=== PATIENT | female | born 1965 | race Caucasian/White ===

== ENCOUNTER 2023-11-02 19:33 | Inpatient (IN) ==
--- NOTE | 2023-11-02 20:16 | Emergency Department Note ---
Impression & Plan Narcotic overdose, Hypertension, Bradycardia, Frequent PVCs, Suicidal ideation ED Provider Note NAME: LIZZETH LOPEZ AGE: 58 SEX: F : 1965 ARRIVES VIA: Ambulance INFORMANT: [Patient] ED PROVIDER(S): [Harshad Garcia MD] CHIEF COMPLAINT: Overdose, suicidal ideation HISTORY OF PRESENT ILLNESS: The patient is a 58-year-old female with a history of depression. She has felt depressed now since her passed. She has never tried to harm herself before but she has contemplated suicide. The patient states that yesterday at 4 AM, over 24 hours ago, she took 4 vials of methadone. The dose is reached via is 146 mg. She took all of them at once. No other pills taken. She states that despite the large dose of methadone, she had no bad effects. She was not groggy or nauseated. The patient went to [facility] to check herself in for help and they referred her to the ER for workup. The patient admits that she has been nauseated for a couple of days and did not take her regular medications. Her blood pressure is high, she takes 3 different medications for blood pressure. She also did not take her Keppra for seizure prophylaxis. The patient currently has no pain, her nausea seems relatively controlled at this time. There is no shortness of breath. She is voluntary. PMHx/PSHx/Social Hx: See Below PHYSICAL EXAM: GENERAL: Patient is in no acute distress. HEENT: No acute trauma, normocephalic atraumatic, mucous membranes moist, no nasal congestion. NECK: No stridor, no adenopathy, no meningismus, trachea is midline. LUNGS: Clear to auscultation bilaterally, no wheeze, no rhonchi, breath sounds equal. HEART: Without murmurs gallops or rubs, regular rate and rhythm. ABDOMEN: Soft, nontender, no peritonitis. EXTREMITIES: No cyanosis, full range of motion of all the joints without pain or difficulty. NEUROLOGIC: Oriented x 3, no acute motor or sensory deficits, no focal weakness. SKIN: No jaundice, no diaphoresis. Buttock: The patient does have a large sacral ulcer which does not appear acutely infected. Psychiatric: Cooperative, flattened affect, admits to suicidal ideation and the overdose yesterday. DIFFERENTIAL DIAGNOSIS: Overdose, suicidality, medication noncompliance, electrolyte imbalance, dysrhythmia, among others. EMERGENCY DEPARTMENT PROCEDURES: MEDICAL DECISION MAKING: There is no leukocytosis or concerning anemia. Platelet count somewhat low at 114. No renal failure. There were some subtle liver enzyme elevations although, the bilirubin was normal. Patient appeared to be in a euthyroid state. Urinalysis did not show infection. Urine tox showed methadone. Aspirin, Tylenol and alcohol levels were undetectable. COVID test returned negative. ECG showed a sinus rhythm with frequent PVCs. On exam, the patient was not in distress, she was resting comfortably. She was hypertensive. The patient was aggressively managed given the circumstances and given her vital signs. I did speak with the poison center, there is no need for emergent intervention as the overdose was more than 24 hours ago. The patient did receive IV saline, 500 cc. She was given IV Zofran, IV Keppra. The Keppra was given since she had missed her Keppra dosing over the last few days. She was ordered for 10 mg oral Norvasc as well as 40 mg of oral lisinopril. She normally takes Norvasc and lisinopril for blood pressure but had missed these meds the last few days. The patient has had some bradycardia on the cardiac cath technician, she has had frequent PVCs. Despite the monitor findings, she has been interactive, awake, she has had no complaints of chest pain or dyspnea. Given the hypertension, the dysrhythmia, the overdose, her seizure history and medication noncompliance, I do think a hospital stay would be warranted. She needs medical clearance and blood pressure control. She can be seen by psychiatry in consult. I spoke with the patient and case management, I spoke with psychiatry watch caser. The on-call hospitalist was consulted. Of note, the sacral ulcer is chronic, she states that she has had this for years. Prior/Outside records/notes reviewed: Today's notes from the [facility] describing her presentation and the referral to the ED. ECG per my interpretation: Indication was overdose. The ECG shows a sinus rhythm with some sinus arrhythmia and PVCs. There is an incomplete right bundle branch block. The rate is 70. There is no acute ST elevation. The QTc is 419. Continuous Cardiac Monitoring per my interpretation: An order was placed for continuous cardiac monitoring. The monitor shows a rate of 68 with sinus rhythm with PVCs. Imaging/x-ray results per my interpretation: Chronic Medical/Social conditions affecting care: Depression and history of narcotic abuse. Care/Management discussed with: The poison center via phone, psychiatry case management. The on-call hospitalist. Level of care consideration(s): After review of the information above and other included data: --I believe the patient requires escalation of care to admission Critical Care Note: I have personally spent 45 minutes of critical care time in the direct management of this patient. This includes bedside care, interpretation of diagnostic studies, and testing, discussion with consultants, patient, and family members, and other required patient management activities. This 45 minutes is in excess of all separately billable procedures. DISPOSITION: Admission Past Med/Surg History Problem List (Updated 11/02/23 @ 23:18 by Harshad Garcia MD) Suicidal ideation (Acute) Frequent PVCs (Acute) Bradycardia (Acute) Hypertension (Acute) Narcotic overdose (Acute) Medical History Hypertension Depression Social History Smoking Status: Current every day smoker Preferred Language: Bhutanese Feels Safe at Home: Yes Allergies Allergies Allergy/AdvReac Type Severity Reaction Status Date / Time No Known Allergies Allergy Verified 11/02/23 21:35 Home Meds Home Medications Medication Instructions Recorded Confirmed amlodipine 10 mg tablet 10 mg PO DAILY 11/02/23 11/02/23 atenolol 50 mg tablet 50 mg PO DAILY 11/02/23 11/02/23 gabapentin 600 mg tablet 600 mg PO TID 11/02/23 11/02/23 lamotrigine 100 mg tablet 100 mg PO HS 11/02/23 11/02/23 lamotrigine 25 mg tablet 75 mg PO QAM 11/02/23 11/02/23 levetiracetam 500 mg tablet 500 mg PO BID 11/02/23 11/02/23 lisinopril 40 mg tablet 40 mg PO DAILY 11/02/23 11/02/23 methadone 147 mg PO DIRECTED 11/02/23 11/02/23 Results & Data (ED) Vital Signs Vital Signs - 24 hr 11/02/23 19:41 11/02/23 19:52 11/02/23 19:55 Temperature 36.7 C Temperature Source Oral Pulse Rate 69 68 Pulse Rate [Left Apical] Respiratory Rate 20 Respiratory Effort / Characteristics Spontaneous Short of Breath Respiratory Depth Normal Respiratory Pattern Regular Blood Pressure 204/121 H 204/119 H Blood Pressure [Right Arm] Blood Pressure Mean 148 160 Blood Pressure Mean [Right Arm] Pulse Oximetry 91 Oxygen Delivery Method Room Air Oxygen Flow Rate Sepsis Recent Fever Within 48 Hours No Sepsis New/Unexplained Change in Mental Status N/A Sepsis Action Taken by Nursing No Action Required Oxygen Flow Rate - Titration Pulse Oximetry Post Tiitration 11/02/23 20:25 11/02/23 20:30 11/02/23 20:30 Temperature Temperature Source Pulse Rate 59 L Pulse Rate [Left Apical] Respiratory Rate 21 Respiratory Effort / Characteristics Respiratory Depth Respiratory Pattern Blood Pressure 178/115 H Blood Pressure [Right Arm] Blood Pressure Mean 158 Blood Pressure Mean [Right Arm] Pulse Oximetry 88 L 95 Oxygen Delivery Method Nasal Cannula Nasal Cannula Oxygen Flow Rate 0 2 Sepsis Recent Fever Within 48 Hours Sepsis New/Unexplained Change in Mental Status Sepsis Action Taken by Nursing Oxygen Flow Rate - Titration 2 Pulse Oximetry Post Tiitration 95 11/02/23 21:00 11/02/23 21:12 11/02/23 21:13 Temperature Temperature Source Pulse Rate Pulse Rate [Left Apical] 35 L 48 L Respiratory Rate Respiratory Effort / Characteristics Respiratory Depth Respiratory Pattern Blood Pressure 155/115 H Blood Pressure [Right Arm] Blood Pressure Mean 129 Blood Pressure Mean [Right Arm] Pulse Oximetry 95 Oxygen Delivery Method Nasal Cannula Oxygen Flow Rate 2 Sepsis Recent Fever Within 48 Hours Sepsis New/Unexplained Change in Mental Status Sepsis Action Taken by Nursing Oxygen Flow Rate - Titration Pulse Oximetry Post Tiitration 11/02/23 21:15 11/02/23 21:24 11/02/23 21:28 Temperature Temperature Source Pulse Rate 72 62 36 L Pulse Rate [Left Apical] Respiratory Rate 14 16 Respiratory Effort / Characteristics Respiratory Depth Respiratory Pattern Blood Pressure Blood Pressure [Right Arm] Blood Pressure Mean Blood Pressure Mean [Right Arm] Pulse Oximetry 95 96 Oxygen Delivery Method Nasal Cannula Nasal Cannula Oxygen Flow Rate 2 2 Sepsis Recent Fever Within 48 Hours Sepsis New/Unexplained Change in Mental Status Sepsis Action Taken by Nursing Oxygen Flow Rate - Titration Pulse Oximetry Post Tiitration 11/02/23 21:31 11/02/23 21:33 11/02/23 21:36 Temperature Temperature Source Pulse Rate 50 L Pulse Rate [Left Apical] 38 L Respiratory Rate 17 Respiratory Effort / Characteristics Respiratory Depth Respiratory Pattern Blood Pressure 160/89 H Blood Pressure [Right Arm] Blood Pressure Mean 95 Blood Pressure Mean [Right Arm] Pulse Oximetry 96 Oxygen Delivery Method Nasal Cannula Oxygen Flow Rate 2 Sepsis Recent Fever Within 48 Hours Sepsis New/Unexplained Change in Mental Status Sepsis Action Taken by Nursing Oxygen Flow Rate - Titration Pulse Oximetry Post Tiitration 11/02/23 21:42 11/02/23 21:54 11/02/23 21:57 Temperature Temperature Source Pulse Rate 38 L 64 50 L Pulse Rate [Left Apical] Respiratory Rate 18 22 21 Respiratory Effort / Characteristics Respiratory Depth Respiratory Pattern Blood Pressure Blood Pressure [Right Arm] Blood Pressure Mean Blood Pressure Mean [Right Arm] Pulse Oximetry 96 95 94 Oxygen Delivery Method Nasal Cannula Nasal Cannula Nasal Cannula Oxygen Flow Rate 2 2 2 Sepsis Recent Fever Within 48 Hours Sepsis New/Unexplained Change in Mental Status Sepsis Action Taken by Nursing Oxygen Flow Rate - Titration Pulse Oximetry Post Tiitration 11/02/23 22:01 11/02/23 22:30 11/02/23 22:39 Temperature Temperature Source Pulse Rate 62 Pulse Rate [Left Apical] Respiratory Rate 17 Respiratory Effort / Characteristics Respiratory Depth Respiratory Pattern Blood Pressure 191/110 H Blood Pressure [Right Arm] 145/90 H Blood Pressure Mean 113 Blood Pressure Mean [Right Arm] 108 Pulse Oximetry Oxygen Delivery Method Oxygen Flow Rate Sepsis Recent Fever Within 48 Hours Sepsis New/Unexplained Change in Mental Status Sepsis Action Taken by Nursing Oxygen Flow Rate - Titration Pulse Oximetry Post Tiitration Home Medications Current Medication List: was personally reviewed by me Laboratory Data Attestation: I reviewed the patient's lab results. 11/02/23 20:13 11/02/23 20:13 Lab Results 11/02/23 11/02/23 11/02/23 Range/Units 20:11 20:13 20:44 WBC 5.46 (4.8-10.8) K/ul RBC 5.21 (4.20-5.40) M/uL Hgb 16.4 H (12.0-16.0) g/dl Hct 49.4 H (37.0-47.0) % MCV 94.8 (80.0-100.0) fL MCH 31.5 (25.0-34.0) pg MCHC 33.2 (32.0-36.0) g/dL RDW Std Deviation 46.5 H (36.4-46.3) fL RDW Coeff of Sol 13.4 (11.5-14.5) % Plt Count 114 L (130-400) K/uL MPV 11.2 (9.4-12.4) fL Immature Gran % (Auto) 0.2 % Neut % (Auto) 49.3 % Lymph % (Auto) 40.8 % [place] % (Auto) 8.8 % Eos % (Auto) 0.5 % Baso % (Auto) 0.4 % Neut # (Auto) 2.69 (1.40-6.50) K/uL Lymph # (Auto) 2.23 (1.20-3.40) K/uL [place] # (Auto) 0.48 (0.11-0.59) K/uL Eos # (Auto) 0.03 (0.00-0.50) K/uL Baso # (Auto) 0.02 (0.00-0.20) K/uL Immature Gran # (Auto) 0.01 (0.01-0.20) K/uL Sodium 137 (136-145) mmol/L Potassium 3.8 (3.5-5.1) mmol/L Chloride 105 (98-107) mmol/L Carbon Dioxide 27 (21-32) mmol/L Anion Gap 5 (3-11) BUN 26 H (6-23) mg/dl Creatinine 1.08 (0.6-1.2) mg/dl Est Cr Clr Drug Dosing Not Reportable Est GFR ( Amer) 65.5 ml/min Est GFR (Non-Af Amer) 56.5 ml/min BUN/Creatinine Ratio 24.1 H (10-20) Glucose 94 (70-99(Fasting)) mg/dl Calcium 11.8 H (8.6-10.3) mg/dl Phosphorus 3.0 (2.5-4.9) mg/dl Total Bilirubin 0.9 (0.2-1.0) mg/dl AST 87 H (13-39) U/L ALT 82 H (7-52) U/L Alkaline Phosphatase 181 H (34-104) U/L Troponin I High Sens 6.3 (0-14) pg/ml Total Protein 8.7 H (6.0-8.3) gm/dl Albumin 4.7 (3.4-5.0) gm/dl Globulin 4.0 (2.5-4.0) gm/dl Albumin/Globulin Ratio 1.2 (0.9-2) TSH 1.961 (0.300-4.500) uIu/ml Urine Color Yellow Urine Appearance Clear (Clear) Urine pH 6.0 (4.5-7.5) Ur Specific [place] 1.018 (1.000-1.030) Urine Protein 1+ H (Negative) Urine Glucose (UA) Negative (Negative) Urine Ketones Negative (Negative) Urine Blood Negative (Negative) Urine Nitrite Negative (Negative) Urine Bilirubin Negative (Negative) Urine Urobilinogen Negative (Negative) Ur Leukocyte Esterase Negative (Negative) Urine WBC (Auto) 0-5 (0-5) /hpf Urine RBC (Auto) 0-2 (0-2) /hpf U Hyaline Cast (Auto) 0-2 (0-2) /lpf U Epithel Cells (Auto) 0-2 (0-2) /hpf Urine Bacteria (Auto) None Seen (None Seen) Salicylates < 3.0 L (3.0-30) mg/dl Urine Opiates Screen Neg (Neg) Ur Methadone, Qual Pos H (Neg) Urine Fentanyl Screen Neg (Neg) Acetaminophen < 3 L (10-30) ug/ml Urine Barbiturates Neg (Neg) Ur Phencyclidine (PCP) Neg (Neg) U Amphetamin/Meth Scrn Neg (Neg) MDMA (Ecstasy) Screen Neg (Neg) U Benzodiazepines Scrn Neg (Neg) Ur Cocaine Metabolite Neg (Neg) U Marijuana (THC) Screen Neg (Neg) Ethyl Alcohol mg/dL < 10.0 (<10.0) mg/dl SARS-CoV-2, RNA, NAAT NEGATIVE (NEGATIVE) Administered Medications Discontinued Medications Amlodipine Besylate (Amlodipine Besylate 5 Mg Tab) 10 mg PO NOW ONE Stop: 11/02/23 20:07 Last Admin: 11/02/23 20:26 Dose: 10 mg Documented By: [facility] Atenolol (Atenolol 50 Mg Tablet) 50 mg PO NOW ONE Stop: 11/02/23 20:07 Last Admin: 11/02/23 20:30 Dose: Not Given Documented By: SUMEET Sodium Chloride (Nss) 500 mls @ 999 mls/hr IV .Q31M ONE Stop: 11/02/23 20:36 Last Infusion: 11/02/23 22:04 Dose: Infused Documented By: Admin: 11/02/23 20:27 Dose: 999 mls/hr Documented By: SUMEET Levetiracetam (Levetiracetam 500 Mg/5 Ml Vial) 1,000 mg IV NOW STA Stop: 11/02/23 20:07 Last Admin: 11/02/23 20:27 Dose: 1,000 mg Documented By: SUMEET Lisinopril (Lisinopril 40 Mg Tab) 40 mg PO NOW STA Stop: 11/02/23 20:07 Last Admin: 11/02/23 21:11 Dose: 40 mg Documented By: SUMEET Ondansetron HCl (Ondansetron Inj 2 Mg/Ml 2 Ml Vial) 4 mg IV NOW STA Stop: 11/02/23 20:07 Last Admin: 11/02/23 20:27 Dose: 4 mg Documented By: [place] Discharge Plan Visit Data Chief Complaint: Mental Health Evaluation Stated Complaint: WANTS HELP WITH METHADONE ADDICTION ED Provider: Harshad Garcia Discharge Problem: Narcotic overdose, Hypertension, Bradycardia, Frequent PVCs, Suicidal ideation Patient Disposition: Admitted As Inpatient Condition: Fair Forms Stand Alone Forms: [facility], Suicide Prevention Resources Prescriptions Prescriptions: No Action gabapentin 600 mg tablet 600 mg PO TID levetiracetam 500 mg tablet 500 mg PO BID lamotrigine 25 mg tablet 75 mg PO QAM amlodipine 10 mg Tablet 10 mg PO DAILY lisinopril 40 mg tablet 40 mg PO DAILY atenolol 50 mg Tablet 50 mg PO DAILY lamotrigine 100 mg tablet 100 mg PO HS methadone 147 mg PO DIRECTED Rx Instructions: Pt takes 147 mg methadone concentrate PO as directed Referrals Referrals: PCP,NO [Physician] - Discharge Problem: Narcotic overdose Qualifiers: Encounter type: initial encounter Injury intent: intentional self-harm Q ualified Code(s): T40.602A - Poisoning by unspecified narcotics, intentional self-harm, initial encounter Hypertension Qualifiers: Hypertension type: unspecified Qualified Code(s): I10 - Essential (primary) hypertension
[2023-11-02] MEDS: amLODIPine BESYLATE 5 MG TAB PO ONE (20:26)
[2023-11-02] MEDS: ONDANSETRON INJ 2 MG/ML 2 ML VIAL IV STA (20:27)
[2023-11-02] MEDS: levETIRAcetam 500 MG/5 ML VIAL IV STA (20:27)
[2023-11-02] MEDS: ATENOLOL 50 MG TABLET PO ONE (20:27)
[2023-11-02] MEDS: SODIUM CHLORIDE 0.9% 500 ML IV ONE (20:27)
[2023-11-02 20:50] LABS: Basophils # (auto) 0.02 K/uL (0.00-0.20); Basophils % (auto) 0.4 %; Eosinophils # (auto) 0.03 K/uL (0.00-0.50); Eosinophils % (auto) 0.5 %; Hematocrit (blood only) 49.4 % (37.0-47.0); Hemoglobin 16.4 g/dl (12.0-16.0); Immature Granulocytes # (auto) 0.01 K/uL (0.01-0.20); Immature Granulocytes % (auto) 0.2 %; Lymphocytes # (auto) 2.23 K/uL (1.20-3.40); Lymphocytes % (auto) 40.8 %; Mean Corpuscular Hemoglobin 31.5 pg (25.0-34.0); Mean Corpuscular Hgb Conc 33.2 g/dL (32.0-36.0); Mean Corpuscular Volume 94.8 fL (80.0-100.0); Mean Platelet Volume 11.2 fL (9.4-12.4); Monocytes # (auto) 0.48 K/uL (0.11-0.59); Monocytes % (auto) 8.8 %; Neutrophils # (auto) 2.69 K/uL (1.40-6.50); Neutrophils % (auto) 49.3 %; Platelet Count 114 K/uL (130-400); RDW Coefficient of Variation 13.4 % (11.5-14.5); RDW Standard Deviation 46.5 fL (36.4-46.3); Red Blood Count 5.21 M/uL (4.20-5.40); White Blood Count 5.46 K/ul (4.8-10.8)
[2023-11-02 21:00] LABS: Appearance Urine Clear (Clear); Bacteria Urine Automated None Seen (None Seen); Bilirubin Urine Negative (Negative); Blood Urine Negative (Negative); Cast Urine Automated 0-2 /lpf (0-2); Color Urine Yellow; Epithelial Cell Urine Auto 0-2 /hpf (0-2); Glucose Urine UA Negative (Negative); Ketones Urine Negative (Negative); Leukocyte Esterase Urine Negative (Negative); Nitrite Urine Negative (Negative); Protein Urine 1+ (Negative); RBC Urine Automated 0-2 /hpf (0-2); Specific Gravity Urine 1.018 (1.000-1.030); Urobilinogen Urine Negative (Negative); WBC Urine Automated 0-5 /hpf (0-5)
[2023-11-02 21:07] LABS: Acetaminophen < 3 ug/ml (10-30); Alanine Aminotransferase 82 U/L (7-52); Albumin Globulin Ratio 1.2 (0.9-2); Albumin Level 4.7 gm/dl (3.4-5.0); Alkaline Phosphatase 181 U/L (34-104); Anion Gap 5 (3-11); Aspartate Aminotransferase 87 U/L (13-39); BUN Creatinine Ratio 24.1 (10-20); Bilirubin,Total 0.9 mg/dl (0.2-1.0); Blood Urea Nitrogen 26 mg/dl (6-23); Calcium 11.8 mg/dl (8.6-10.3); Carbon Dioxide 27 mmol/L (21-32); Chloride 105 mmol/L (98-107); Est GFR (African American) 65.5 ml/min; Est GFR (Non-African American) 56.5 ml/min; Glucose 94 mg/dl (70-99(Fasting)); Potassium 3.8 mmol/L (3.5-5.1); Salicylate < 3.0 mg/dl (3.0-30); Sodium 137 mmol/L (136-145); Total Protein 8.7 gm/dl (6.0-8.3)
[2023-11-02] MEDS: lisinopril 40 MG TAB PO STA (21:11)
[2023-11-02 21:22] LABS: Thyroid Stimulating Hormone 1.961 uIu/ml (0.300-4.500)
[2023-11-02 21:24] LABS: Amphetamines+Metham, Urine Neg (Neg); Barbiturates, Urine Neg (Neg); Benzodiazepine, Urine Neg (Neg); Cocaine, Urine Neg (Neg); Fentanyl, Urine Neg (Neg); MDMA (Ecstacy), Urine Neg (Neg); Marijuana, Urine Neg (Neg); Methadone, Urine Pos (Neg); Opiate, Urine Neg (Neg); Phencyclidine, Urine Neg (Neg)
--- NOTE | 2023-11-02 22:15 | History & Physical Report ---
Date of Service November 02, 2023 History of Present Illness Primary Care Provider: Marcelina Bird Allergies Allergy/AdvReac Type Severity Reaction Status Date / Time No Known Allergies Allergy Verified 11/02/23 21:35 Home Medications Medication Instructions Recorded Confirmed Type amlodipine 10 mg tablet 10 mg PO DAILY 11/02/23 11/02/23 History atenolol 50 mg tablet 50 mg PO DAILY 11/02/23 11/02/23 History gabapentin 600 mg tablet 600 mg PO TID 11/02/23 11/02/23 History lamotrigine 100 mg tablet 100 mg PO HS 11/02/23 11/02/23 History lamotrigine 25 mg tablet 75 mg PO QAM 11/02/23 11/02/23 History levetiracetam 500 mg tablet 500 mg PO BID 11/02/23 11/02/23 History lisinopril 40 mg tablet 40 mg PO DAILY 11/02/23 11/02/23 History methadone 147 mg PO DIRECTED 11/02/23 11/02/23 History Past Med/Surg History Problem List Social History Smoking Status: Current every day smoker Preferred Language: [place] Citizen Feels Safe at Home: Yes Results & Data Results & Data Vital Signs (Past 12 Hours) Vital Signs Temp Pulse Pulse Resp BP Pulse Ox O2 Del Method 11/02/23 21:36 38 L 11/02/23 21:33 50 L 17 96 Nasal Cannula 11/02/23 21:31 160/89 H 11/02/23 21:28 36 L 11/02/23 21:24 62 16 96 Nasal Cannula 11/02/23 21:15 72 14 95 Nasal Cannula 11/02/23 21:13 48 L 11/02/23 21:12 35 L 95 Nasal Cannula 11/02/23 21:00 155/115 H 11/02/23 20:30 59 L 21 95 Nasal Cannula 11/02/23 20:30 178/115 H 11/02/23 20:25 88 L Nasal Cannula 11/02/23 19:55 68 11/02/23 19:52 204/119 H 11/02/23 19:41 36.7 C 69 20 204/121 H 91 Room Air O2 Flow Rate 11/02/23 21:36 11/02/23 21:33 2 11/02/23 21:31 11/02/23 21:28 11/02/23 21:24 2 07/02/24 21:15 2 11/02/23 21:13 11/02/23 21:12 2 11/02/23 21:00 11/02/23 20:30 2 11/02/23 20:30 11/02/23 20:25 0 11/02/23 19:55 11/02/23 19:52 11/02/23 19:41 Laboratory Results Laboratory Results WBC 5.46 K/ul (4.8-10.8) 11/02/23 20:13 RBC 5.21 M/uL (4.20-5.40) 11/02/23 20:13 Hgb 16.4 g/dl (12.0-16.0) H 11/02/23 20:13 Hct 49.4 % (37.0-47.0) H 11/02/23 20:13 MCV 94.8 fL (80.0-100.0) 11/02/23 20:13 MCH 31.5 pg (25.0-34.0) 11/02/23 20:13 MCHC 33.2 g/dL (32.0-36.0) 11/02/23 20:13 RDW Std Deviation 46.5 fL (36.4-46.3) H 11/02/23 20:13 RDW Coeff of Sol 13.4 % (11.5-14.5) 11/02/23 20:13 Plt Count 114 K/uL (130-400) L 11/02/23 20:13 MPV 11.2 fL (9.4-12.4) 11/02/23 20:13 Immature Gran % (Auto) 0.2 % 11/02/23 20:13 Neut % (Auto) 49.3 % 11/02/23 20:13 Lymph % (Auto) 40.8 % 11/02/23 20:13 [place] % (Auto) 8.8 % 11/02/23 20:13 Eos % (Auto) 0.5 % 11/02/23 20:13 Baso % (Auto) 0.4 % 11/02/23 20:13 Neut # (Auto) 2.69 K/uL (1.40-6.50) 11/02/23 20:13 Lymph # (Auto) 2.23 K/uL (1.20-3.40) 11/02/23 20:13 [place] # (Auto) 0.48 K/uL (0.11-0.59) 11/02/23 20:13 Eos # (Auto) 0.03 K/uL (0.00-0.50) 11/02/23 20:13 Baso # (Auto) 0.02 K/uL (0.00-0.20) 11/02/23 20:13 Immature Gran # (Auto) 0.01 K/uL (0.01-0.20) 11/02/23 20:13 Sodium 137 mmol/L (136-145) 11/02/23 20:13 Potassium 3.8 mmol/L (3.5-5.1) 11/02/23 20:13 Chloride 105 mmol/L (98-107) 11/02/23 20:13 Carbon Dioxide 27 mmol/L (21-32) 11/02/23 20:13 Anion Gap 5 (3-11) 11/02/23 20:13 BUN 26 mg/dl (6-23) H 11/02/23 20:13 Creatinine 1.08 mg/dl (0.6-1.2) 11/02/23 20:13 Est Cr Clr Drug Dosing Not Reportable 11/02/23 20:13 Est GFR ( Amer) 65.5 ml/min 11/02/23 20:13 Est GFR (Non-Af Amer) 56.5 ml/min 11/02/23 20:13 BUN/Creatinine Ratio 24.1 (10-20) H 11/02/23 20:13 Glucose 94 mg/dl (70-99(Fasting)) 11/02/23 20:13 Calcium 11.8 mg/dl (8.6-10.3) H 11/02/23 20:13 Total Bilirubin 0.9 mg/dl (0.2-1.0) 11/02/23 20:13 AST 87 U/L (13-39) H 11/02/23 20:13 ALT 82 U/L (7-52) H 11/02/23 20:13 Alkaline Phosphatase 181 U/L (34-104) H 11/02/23 20:13 Total Protein 8.7 gm/dl (6.0-8.3) H 11/02/23 20:13 Albumin 4.7 gm/dl (3.4-5.0) 11/02/23 20:13 Globulin 4.0 gm/dl (2.5-4.0) 11/02/23 20:13 Albumin/Globulin Ratio 1.2 (0.9-2) 11/02/23 20:13 TSH 1.961 uIu/ml (0.300-4.500) 11/02/23 20:13 Urine Color Yellow 11/02/23 20:44 Urine Appearance Clear (Clear) 11/02/23 20:44 Urine pH 6.0 (4.5-7.5) 11/02/23 20:44 Ur Specific [place] 1.018 (1.000-1.030) 11/02/23 20:44 Urine Protein 1+ (Negative) H 11/02/23 20:44 Urine Glucose (UA) Negative (Negative) 11/02/23 20:44 Urine Ketones Negative (Negative) 11/02/23 20:44 Urine Blood Negative (Negative) 11/02/23 20:44 Urine Nitrite Negative (Negative) 11/02/23 20:44 Urine Bilirubin Negative (Negative) 11/02/23 20:44 Urine Urobilinogen Negative (Negative) 11/02/23 20:44 Ur Leukocyte Esterase Negative (Negative) 11/02/23 20:44 Urine WBC (Auto) 0-5 /hpf (0-5) 11/02/23 20:44 Urine RBC (Auto) 0-2 /hpf (0-2) 11/02/23 20:44 U Hyaline Cast (Auto) 0-2 /lpf (0-2) 11/02/23 20:44 U Epithel Cells (Auto) 0-2 /hpf (0-2) 11/02/23 20:44 Urine Bacteria (Auto) None Seen (None Seen) 11/02/23 20:44 Salicylates < 3.0 mg/dl (3.0-30) L 11/02/23 20:13 Urine Opiates Screen Neg (Neg) 11/02/23 20:44 Ur Methadone, Qual Pos (Neg) H 11/02/23 20:44 Urine Fentanyl Screen Neg (Neg) 11/02/23 20:44 Acetaminophen < 3 ug/ml (10-30) L 11/02/23 20:13 Urine Barbiturates Neg (Neg) 11/02/23 20:44 Ur Phencyclidine (PCP) Neg (Neg) 11/02/23 20:44 U Amphetamin/Meth Scrn Neg (Neg) 11/02/23 20:44 MDMA (Ecstasy) Screen Neg (Neg) 11/02/23 20:44 U Benzodiazepines Scrn Neg (Neg) 11/02/23 20:44 Ur Cocaine Metabolite Neg (Neg) 11/02/23 20:44 U Marijuana (THC) Screen Neg (Neg) 11/02/23 20:44 Ethyl Alcohol mg/dL < 10.0 mg/dl (<10.0) 11/02/23 20:13 SARS-CoV-2, RNA, NAAT NEGATIVE (NEGATIVE) 11/02/23 20:11
[2023-11-02] MEDS ORDERED: ATROPINE SULFATE 0.1 MG/ML 10ML SYR IV PRN (22:20)
[2023-11-02] MEDS ORDERED: oxyCODONE HCL IR 5 MG TAB (IMMEDIATE RELEASE) PO PRN (22:45)
[2023-11-02 22:58] LABS: Troponin I High Sensitivity 6.3 pg/ml (0-14)
[2023-11-02 23:19] LABS: Appearance Urine Clear (Clear); Bacteria Urine Automated None Seen (None Seen); Bilirubin Urine Negative (Negative); Blood Urine Negative (Negative); Cast Urine Automated 0-2 /lpf (0-2); Color Urine Yellow; Epithelial Cell Urine Auto 0-2 /hpf (0-2); Glucose Urine UA Negative (Negative); Ketones Urine Negative (Negative); Leukocyte Esterase Urine Negative (Negative); Nitrite Urine Negative (Negative); Protein Urine Trace (Negative); RBC Urine Automated 0-2 /hpf (0-2); Specific Gravity Urine 1.015 (1.000-1.030); Urobilinogen Urine Negative (Negative); WBC Urine Automated 0-5 /hpf (0-5)
[2023-11-02] MEDS: hydrALAZINE HCL 20 MG/ML VIAL IV STA (23:22)
[2023-11-02] MEDS: lamoTRIgine 100 MG TAB PO SCH (23:36)
[2023-11-02] MEDS: SODIUM CHLORIDE 0.9% 1,000 ML IV ONE (23:36)
[2023-11-03 00:04] LABS: Lipase 25 U/L (11-82)
--- NOTE | 2023-11-03 00:45 | History & Physical Report ---
Date of Service November 03, 2023 History of Present Illness Primary Care Provider: Marcelina Bird Allergies Allergy/AdvReac Type Severity Reaction Status Date / Time No Known Allergies Allergy Verified 11/02/23 21:35 Home Medications Medication Instructions Recorded Confirmed Type amlodipine 10 mg tablet 10 mg PO DAILY 11/02/23 11/02/23 History atenolol 50 mg tablet 50 mg PO DAILY 11/02/23 11/02/23 History gabapentin 600 mg tablet 600 mg PO TID 11/02/23 11/02/23 History lamotrigine 100 mg tablet 100 mg PO HS 11/02/23 11/02/23 History lamotrigine 25 mg tablet 75 mg PO QAM 11/02/23 11/02/23 History levetiracetam 500 mg tablet 500 mg PO BID 11/02/23 11/02/23 History lisinopril 40 mg tablet 40 mg PO DAILY 11/02/23 11/02/23 History methadone 147 mg PO DIRECTED 11/02/23 11/02/23 History Past Med/Surg History Problem List (Updated 11/02/23 @ 23:18 by Harshad Garcia MD) Suicidal ideation (Acute) Frequent PVCs (Acute) Bradycardia (Acute) Hypertension (Acute) Narcotic overdose (Acute) Medical History Hypertension Depression Social History Smoking Status: Current every day smoker Preferred Language: Salvadorean Feels Safe at Home: Yes Results & Data Results & Data Vital Signs (Past 12 Hours) Vital Signs Temp Pulse Pulse Resp BP BP Pulse Ox 11/02/23 23:06 50 L 15 126/81 92 11/02/23 22:39 145/90 H 11/02/23 22:38 145/90 H 11/02/23 22:30 62 17 11/02/23 22:01 191/110 H 11/02/23 21:57 50 L 21 94 11/02/23 21:54 64 22 95 11/02/23 21:42 38 L 18 96 11/02/23 21:36 38 L 11/02/23 21:33 50 L 17 96 11/02/23 21:31 160/89 H 11/02/23 21:28 36 L 11/02/23 21:24 62 16 96 11/02/23 21:15 72 14 95 11/02/23 21:13 48 L 11/02/23 21:12 35 L 95 11/02/23 21:00 155/115 H 11/02/23 20:30 59 L 21 95 11/02/23 20:30 178/115 H 11/02/23 20:25 88 L 11/02/23 19:55 68 11/02/23 19:52 204/119 H 11/02/23 19:41 36.7 C 69 20 204/121 H 91 O2 Del Method O2 Flow Rate 11/02/23 23:06 Nasal Cannula 2 11/02/23 22:39 11/02/23 22:38 11/02/23 22:30 11/02/23 22:01 11/02/23 21:57 Nasal Cannula 2 11/02/23 21:54 Nasal Cannula 2 11/02/23 21:42 Nasal Cannula 2 11/02/23 21:36 11/02/23 21:33 Nasal Cannula 2 11/02/23 21:31 11/02/23 21:28 11/02/23 21:24 Nasal Cannula 2 11/02/23 21:15 Nasal Cannula 2 11/02/23 21:13 11/02/23 21:12 Nasal Cannula 2 11/02/23 21:00 11/02/23 20:30 Nasal Cannula 2 11/02/23 20:30 11/02/23 20:25 Nasal Cannula 0 11/02/23 19:55 11/02/23 19:52 11/02/23 19:41 Room Air Laboratory Results Laboratory Results WBC 5.46 K/ul (4.8-10.8) 11/02/23 20:13 RBC 5.21 M/uL (4.20-5.40) 11/02/23 20:13 Hgb 16.4 g/dl (12.0-16.0) H 11/02/23 20:13 Hct 49.4 % (37.0-47.0) H 11/02/23 20:13 MCV 94.8 fL (80.0-100.0) 11/02/23 20:13 MCH 31.5 pg (25.0-34.0) 11/02/23 20:13 MCHC 33.2 g/dL (32.0-36.0) 11/02/23 20:13 RDW Std Deviation 46.5 fL (36.4-46.3) H 11/02/23 20:13 RDW Coeff of Sol 13.4 % (11.5-14.5) 11/02/23 20:13 Plt Count 114 K/uL (130-400) L 11/02/23 20:13 MPV 11.2 fL (9.4-12.4) 11/02/23 20:13 Immature Gran % (Auto) 0.2 % 11/02/23 20:13 Neut % (Auto) 49.3 % 11/02/23 20:13 Lymph % (Auto) 40.8 % 11/02/23 20:13 [place] % (Auto) 8.8 % 11/02/23 20:13 Eos % (Auto) 0.5 % 11/02/23 20:13 Baso % (Auto) 0.4 % 11/02/23 20:13 Neut # (Auto) 2.69 K/uL (1.40-6.50) 11/02/23 20:13 Lymph # (Auto) 2.23 K/uL (1.20-3.40) 11/02/23 20:13 [place] # (Auto) 0.48 K/uL (0.11-0.59) 11/02/23 20:13 Eos # (Auto) 0.03 K/uL (0.00-0.50) 11/02/23 20:13 Baso # (Auto) 0.02 K/uL (0.00-0.20) 11/02/23 20:13 Immature Gran # (Auto) 0.01 K/uL (0.01-0.20) 11/02/23 20:13 Sodium 137 mmol/L (136-145) 11/02/23 20:13 Potassium 3.8 mmol/L (3.5-5.1) 11/02/23 20:13 Chloride 105 mmol/L (98-107) 11/02/23 20:13 Carbon Dioxide 27 mmol/L (21-32) 11/02/23 20:13 Anion Gap 5 (3-11) 11/02/23 20:13 BUN 26 mg/dl (6-23) H 11/02/23 20:13 Creatinine 1.08 mg/dl (0.6-1.2) 11/02/23 20:13 Est Cr Clr Drug Dosing Not Reportable 11/02/23 20:13 Est GFR ( Amer) 65.5 ml/min 11/02/23 20:13 Est GFR (Non-Af Amer) 56.5 ml/min 11/02/23 20:13 BUN/Creatinine Ratio 24.1 (10-20) H 11/02/23 20:13 Glucose 94 mg/dl (70-99(Fasting)) 11/02/23 20:13 Calcium 11.8 mg/dl (8.6-10.3) H 11/02/23 20:13 Phosphorus 3.0 mg/dl (2.5-4.9) 11/02/23 20:13 Total Bilirubin 0.9 mg/dl (0.2-1.0) 11/02/23 20:13 AST 87 U/L (13-39) H 11/02/23 20:13 ALT 82 U/L (7-52) H 11/02/23 20:13 Alkaline Phosphatase 181 U/L (34-104) H 11/02/23 20:13 Troponin I High Sens 6.3 pg/ml (0-14) 11/02/23 20:13 Total Protein 8.7 gm/dl (6.0-8.3) H 11/02/23 20:13 Albumin 4.7 gm/dl (3.4-5.0) 11/02/23 20:13 Globulin 4.0 gm/dl (2.5-4.0) 11/02/23 20:13 Albumin/Globulin Ratio 1.2 (0.9-2) 11/02/23 20:13 Lipase 25 U/L (11-82) 11/02/23 20:13 TSH 1.961 uIu/ml (0.300-4.500) 11/02/23 20:13 Urine Color Yellow 11/02/23 22:54 Urine Appearance Clear (Clear) 11/02/23 22:54 Urine pH 6.0 (4.5-7.5) 11/02/23 22:54 Ur Specific [place] 1.015 (1.000-1.030) 11/02/23 22:54 Urine Protein Trace (Negative) H 11/02/23 22:54 Urine Glucose (UA) Negative (Negative) 11/02/23 22:54 Urine Ketones Negative (Negative) 11/02/23 22:54 Urine Blood Negative (Negative) 11/02/23 22:54 Urine Nitrite Negative (Negative) 11/02/23 22:54 Urine Bilirubin Negative (Negative) 11/02/23 22:54 Urine Urobilinogen Negative (Negative) 11/02/23 22:54 Ur Leukocyte Esterase Negative (Negative) 11/02/23 22:54 Urine WBC (Auto) 0-5 /hpf (0-5) 11/02/23 22:54 Urine RBC (Auto) 0-2 /hpf (0-2) 11/02/23 22:54 U Hyaline Cast (Auto) 0-2 /lpf (0-2) 11/02/23 22:54 U Epithel Cells (Auto) 0-2 /hpf (0-2) 11/02/23 22:54 Urine Bacteria (Auto) None Seen (None Seen) 11/02/23 22:54 Salicylates < 3.0 mg/dl (3.0-30) L 11/02/23 20:13 Urine Opiates Screen Neg (Neg) 11/02/23 20:44 Ur Methadone, Qual Pos (Neg) H 11/02/23 20:44 Urine Fentanyl Screen Neg (Neg) 11/02/23 20:44 Acetaminophen < 3 ug/ml (10-30) L 11/02/23 20:13 Urine Barbiturates Neg (Neg) 11/02/23 20:44 Ur Phencyclidine (PCP) Neg (Neg) 11/02/23 20:44 U Amphetamin/Meth Scrn Neg (Neg) 11/02/23 20:44 MDMA (Ecstasy) Screen Neg (Neg) 11/02/23 20:44 U Benzodiazepines Scrn Neg (Neg) 11/02/23 20:44 Ur Cocaine Metabolite Neg (Neg) 11/02/23 20:44 U Marijuana (THC) Screen Neg (Neg) 11/02/23 20:44 Ethyl Alcohol mg/dL < 10.0 mg/dl (<10.0) 11/02/23 20:13 SARS-CoV-2, RNA, NAAT NEGATIVE (NEGATIVE) 11/02/23 20:11 Diagnostic Findings 1. Coarse echogenicity of the liver may relate to fatty infiltration and/or hep atocellular dysfunction. 2. Cholelithiasis. No ultrasound evidence of acute cholecystitis. 3. Dilated common bile duct and pancreatic duct, "double duct sign ". This is concerning for an ampullary lesion. 4. There are however filling defects the common bile duct consistent with choledocholithiasis.
[2023-11-03 01:15] LABS: INR 1.1 (0.9-1.1); Prothrombin Time 11.5 Seconds (9.0-12.0)
[2023-11-03 01:48] LABS: HepB Surface Ag with confirm Negative (Negative)
[2023-11-03 01:54] LABS: HepC Ab Rflx HepCQuant RNA Prelim Positive (Negative)
--- NOTE | 2023-11-03 03:00 | Ultrasound Report ---
Exam(s): US GALLBLADDER EXAM: US Abdomen Limited, Gallbladder CLINICAL HISTORY: Abnormal LFTs. TECHNIQUE: Real-time ultrasound of the right upper quadrant with image documentation. COMPARISON: No relevant prior studies available. FINDINGS: Liver: Coarse echogenicity of the liver may relate to fatty infiltration and/or hepatocellular dysfunction. Gallbladder: Cholelithiasis. No ultrasound evidence of acute cholecystitis. Common bile duct: The common bile duct is dilated measuring 1.4 cm. There are however filling defects the common bile duct consistent with choledocholithiasis. Pancreas: The visualized pancreas is within normal limits. Prominent pancreatic duct measuring 0.3 cm. IMPRESSION: 1. Coarse echogenicity of the liver may relate to fatty infiltration and/or hepatocellular dysfunction. 2. Cholelithiasis. No ultrasound evidence of acute cholecystitis. 3. Dilated common bile duct and pancreatic duct, "double duct sign ". This is concerning for an ampullary lesion. 4. There are however filling defects the common bile duct consistent with choledocholithiasis. Electronically signed by: Dora Barajas MD 11/03/23 02:59 AM
[2023-11-03] MEDS: NSS + 20MEQ KCL 20 MEQ/1,000 ML BAG IV ONE (04:17)
--- NOTE | 2023-11-03 04:22 | Hospitalist Consultation ---
Date of Consultation November 03, 2023 Assessment & Plan (1) Biliary obstruction: Final Assessment and Recommendations as follows : Choledocholithiasis, possible periampullary lesion on gallbladder ultrasound Patient not septic for now Hypercalcemia secondary to primary hyperparathyroidism, new diagnosis Asymptomatic bradycardia possibly from intentional methadone overdose, home beta-rain contributory Transfer to tertiary care center given need for advanced endoscopy services (ERCP) which is currently not available at [facility]. Patient kindly accepted for transfer by Dr. Travis of [facility] hospitalist service. Keep patient n.p.o. in anticipation of procedure Continue IVF for hypercalcemia Endocrinology consultation for primary hyperparathyroidism. Suicide precautions on transfer, Psychiatry consultation for suicidality Hold home beta-rain for now Patient daughter requesting updates from [facility] providers. Ms. Neville Carlagnieszka, contact #[phone]. Thank you very much for this consultation. Text document was generated using [employer] voice recognition software. It may contain grammatical or spelling errors. Kindly contact undersigned for clarification of any documentation item in question. History of Present Illness Reason for Consultation: Uncontrolled hypertension Requesting Physician: Dr. Garcia Attending Physician: Dr. Garcia History of Present Illness PCP : Dr. Machuca History obtained from patient, family, and records. Medical history significant for COPD, hypertension, HBV/HCV status post Rx as per family, mood disorder, seizure disorder, chronic pain on methadone, history drug abuse, ongoing vape use. 4 days history of nausea vomiting symptoms without abdominal pain. Patient took 4 tablets of methadone 2 days ago with intent of self-harm due to worsening depression. Patient noted to be drowsy by family. Denies headache, chest pain. Some SOB without cough symptoms. Patient went to [facility] seeking voluntary admission following family advice yesterday. Blood pressure noted to be very high. Patient sent to [facility] ER for medical clearance last night. SBP 200s upon arrival at the ER. Patient given lisinopril and amlodipine Home meds at the ER. SBP currently 100s. Heart rate in the ER 30 to 50s. Patient currently asymptomatic. Medical History as above Surgical History : Nothing significant as per patient Family History : Heart disease, DM Personal/Social history : Ongoing vape use, occasional EtOH intake, disabled Allergies Allergy/AdvReac Type Severity Reaction Status Date / Time No Known Allergies Allergy Verified 11/02/23 21:35 Home Medications Medication Instructions Recorded Confirmed Type amlodipine 10 mg tablet 10 mg PO DAILY 11/02/23 11/02/23 History atenolol 50 mg tablet 50 mg PO DAILY 11/02/23 11/02/23 History gabapentin 600 mg tablet 600 mg PO TID 11/02/23 11/02/23 History lamotrigine 100 mg tablet 100 mg PO HS 11/02/23 11/02/23 History lamotrigine 25 mg tablet 75 mg PO QAM 11/02/23 11/02/23 History levetiracetam 500 mg tablet 500 mg PO BID 11/02/23 11/02/23 History lisinopril 40 mg tablet 40 mg PO DAILY 11/02/23 11/02/23 History methadone 147 mg PO DIRECTED 11/02/23 11/02/23 History Patient History Medical History Hypertension Depression Social History Smoking Status: Current every day smoker Preferred Language: Monegasque Feels Safe at Home: Yes Review of Systems Review of Systems: As per HPI, all other systems reviewed and negative Physical Exam Physical Exam: GENERAL: Slightly anxious, slightly uncomfortable, no respiratory distress SKIN: Normal color, warm HEENT: Bespectacled, [place] palpebral conjunctivae, no ptosis, dry buccal mucosa, nasal cannula in place NECK : Supple, no tenderness CHEST : Decreased breath sounds,, no tenderness HEART : Bradycardic, no obvious murmurs ABDOMEN: no distention, nontender EXTREMITIES : No LE swelling/tenderness, no other conspicuous deformities noted NEUROLOGIC : Coherent, no facial asymmetry, no other gross focality Results & Data Results & Data Vital Signs (Past 12 Hours) Vital Signs Temp Pulse Pulse Resp BP BP Pulse Ox 11/03/23 02:00 54 L 14 110/72 94 11/03/23 01:30 106/66 96 11/03/23 01:21 51 L 11/03/23 01:00 63 11 L 106/66 88 L 11/02/23 23:30 60 16 125/90 93 11/02/23 23:06 50 L 15 126/81 92 11/02/23 22:39 145/90 H 11/02/23 22:38 145/90 H 11/02/23 22:30 62 17 11/02/23 22:01 191/110 H 11/02/23 21:57 50 L 21 94 11/02/23 21:54 64 22 95 11/02/23 21:42 38 L 18 96 11/02/23 21:36 38 L 11/02/23 21:33 50 L 17 96 11/02/23 21:31 160/89 H 11/02/23 21:28 36 L 11/02/23 21:24 62 16 96 11/02/23 21:15 72 14 95 11/02/23 21:13 48 L 11/02/23 21:12 35 L 95 11/02/23 21:00 155/115 H 11/02/23 20:30 59 L 21 95 11/02/23 20:30 178/115 H 11/02/23 20:25 88 L 11/02/23 19:55 68 11/02/23 19:52 204/119 H 11/02/23 19:41 36.7 C 69 20 204/121 H 91 O2 Del Method O2 Flow Rate 11/03/23 02:00 Nasal Cannula 3 11/03/23 01:30 Nasal Cannula 3 11/03/23 01:21 11/03/23 01:00 Nasal Cannula 3 11/02/23 23:30 Nasal Cannula 2 11/02/23 23:06 Nasal Cannula 2 11/02/23 22:39 11/02/23 22:38 11/02/23 22:30 11/02/23 22:01 11/02/23 21:57 Nasal Cannula 2 11/02/23 21:54 Nasal Cannula 2 11/02/23 21:42 Nasal Cannula 2 11/02/23 21:36 11/02/23 21:33 Nasal Cannula 2 11/02/23 21:31 11/02/23 21:28 11/02/23 21:24 Nasal Cannula 2 11/02/23 21:15 Nasal Cannula 2 11/02/23 21:13 11/02/23 21:12 Nasal Cannula 2 11/02/23 21:00 11/02/23 20:30 Nasal Cannula 2 11/02/23 20:30 11/02/23 20:25 Nasal Cannula 0 11/02/23 19:55 11/02/23 19:52 11/02/23 19:41 Room Air Laboratory Results Laboratory Results WBC 5.46 K/ul (4.8-10.8) 11/02/23 20:13 RBC 5.21 M/uL (4.20-5.40) 11/02/23 20:13 Hgb 16.4 g/dl (12.0-16.0) H 11/02/23 20:13 Hct 49.4 % (37.0-47.0) H 11/02/23 20:13 MCV 94.8 fL (80.0-100.0) 11/02/23 20:13 MCH 31.5 pg (25.0-34.0) 11/02/23 20:13 MCHC 33.2 g/dL (32.0-36.0) 11/02/23 20:13 RDW Std Deviation 46.5 fL (36.4-46.3) H 11/02/23 20:13 RDW Coeff of Sol 13.4 % (11.5-14.5) 11/02/23 20:13 Plt Count 114 K/uL (130-400) L 11/02/23 20:13 MPV 11.2 fL (9.4-12.4) 11/02/23 20:13 Immature Gran % (Auto) 0.2 % 11/02/23 20:13 Neut % (Auto) 49.3 % 11/02/23 20:13 Lymph % (Auto) 40.8 % 11/02/23 20:13 [place] % (Auto) 8.8 % 11/02/23 20:13 Eos % (Auto) 0.5 % 11/02/23 20:13 Baso % (Auto) 0.4 % 11/02/23 20:13 Neut # (Auto) 2.69 K/uL (1.40-6.50) 11/02/23 20:13 Lymph # (Auto) 2.23 K/uL (1.20-3.40) 11/02/23 20:13 [place] # (Auto) 0.48 K/uL (0.11-0.59) 11/02/23 20:13 Eos # (Auto) 0.03 K/uL (0.00-0.50) 11/02/23 20:13 Baso # (Auto) 0.02 K/uL (0.00-0.20) 11/02/23 20:13 Immature Gran # (Auto) 0.01 K/uL (0.01-0.20) 11/02/23 20:13 PT 11.5 Seconds (9.0-12.0) 11/03/23 00:24 INR 1.1 (0.9-1.1) 11/03/23 00:24 Sodium 137 mmol/L (136-145) 11/02/23 20:13 Potassium 3.8 mmol/L (3.5-5.1) 11/02/23 20:13 Chloride 105 mmol/L (98-107) 11/02/23 20:13 Carbon Dioxide 27 mmol/L (21-32) 11/02/23 20:13 Anion Gap 5 (3-11) 11/02/23 20:13 BUN 26 mg/dl (6-23) H 11/02/23 20:13 Creatinine 1.08 mg/dl (0.6-1.2) 11/02/23 20:13 Est Cr Clr Drug Dosing Not Reportable 11/02/23 20:13 Est GFR ( Amer) 65.5 ml/min 11/02/23 20:13 Est GFR (Non-Af Amer) 56.5 ml/min 11/02/23 20:13 BUN/Creatinine Ratio 24.1 (10-20) H 11/02/23 20:13 Glucose 94 mg/dl (70-99(Fasting)) 11/02/23 20:13 Calcium 10.5 mg/dl (8.6-10.3) H 11/03/23 00:24 Phosphorus 3.0 mg/dl (2.5-4.9) 11/02/23 20:13 Total Bilirubin 0.9 mg/dl (0.2-1.0) 11/02/23 20:13 AST 87 U/L (13-39) H 11/02/23 20:13 ALT 82 U/L (7-52) H 11/02/23 20:13 Alkaline Phosphatase 181 U/L (34-104) H 11/02/23 20:13 Ammonia 32.0 umol/L (18-72) 11/03/23 00:24 Troponin I High Sens 6.3 pg/ml (0-14) 11/02/23 20:13 Total Protein 8.7 gm/dl (6.0-8.3) H 11/02/23 20:13 Albumin 4.7 gm/dl (3.4-5.0) 11/02/23 20:13 Globulin 4.0 gm/dl (2.5-4.0) 11/02/23 20:13 Albumin/Globulin Ratio 1.2 (0.9-2) 11/02/23 20:13 Lipase 25 U/L (11-82) 11/02/23 20:13 TSH 1.961 uIu/ml (0.300-4.500) 11/02/23 20:13 PTH Intact 101.3 pg/ml (12.0-88.0) H 11/03/23 00:24 Urine Color Yellow 11/02/23 22:54 Urine Appearance Clear (Clear) 11/02/23 22:54 Urine pH 6.0 (4.5-7.5) 11/02/23 22:54 Ur Specific [place] 1.015 (1.000-1.030) 11/02/23 22:54 Urine Protein Trace (Negative) H 11/02/23 22:54 Urine Glucose (UA) Negative (Negative) 11/02/23 22:54 Urine Ketones Negative (Negative) 11/02/23 22:54 Urine Blood Negative (Negative) 11/02/23 22:54 Urine Nitrite Negative (Negative) 11/02/23 22:54 Urine Bilirubin Negative (Negative) 11/02/23 22:54 Urine Urobilinogen Negative (Negative) 11/02/23 22:54 Ur Leukocyte Esterase Negative (Negative) 11/02/23 22:54 Urine WBC (Auto) 0-5 /hpf (0-5) 11/02/23 22:54 Urine RBC (Auto) 0-2 /hpf (0-2) 11/02/23 22:54 U Hyaline Cast (Auto) 0-2 /lpf (0-2) 11/02/23 22:54 U Epithel Cells (Auto) 0-2 /hpf (0-2) 11/02/23 22:54 Urine Bacteria (Auto) None Seen (None Seen) 11/02/23 22:54 Salicylates < 3.0 mg/dl (3.0-30) L 11/02/23 20:13 Urine Opiates Screen Neg (Neg) 11/02/23 20:44 Ur Methadone, Qual Pos (Neg) H 11/02/23 20:44 Urine Fentanyl Screen Neg (Neg) 11/02/23 20:44 Acetaminophen < 3 ug/ml (10-30) L 11/02/23 20:13 Urine Barbiturates Neg (Neg) 11/02/23 20:44 Ur Phencyclidine (PCP) Neg (Neg) 11/02/23 20:44 U Amphetamin/Meth Scrn Neg (Neg) 11/02/23 20:44 MDMA (Ecstasy) Screen Neg (Neg) 11/02/23 20:44 U Benzodiazepines Scrn Neg (Neg) 11/02/23 20:44 Ur Cocaine Metabolite Neg (Neg) 11/02/23 20:44 U Marijuana (THC) Screen Neg (Neg) 11/02/23 20:44 Ethyl Alcohol mg/dL < 10.0 mg/dl (<10.0) 11/02/23 20:13 Hep Bs Antigen Negative (Negative) 11/03/23 00:24 Hepatitis C Antibody Prelim Positive (Negative) A 11/03/23 00:24 SARS-CoV-2, RNA, NAAT NEGATIVE (NEGATIVE) 11/02/23 20:11 Impressions Gallbladder Ultrasound 11/02/23 22:15 Exam(s): US GALLBLADDER EXAM: US Abdomen Limited, Gallbladder CLINICAL HISTORY: Abnormal LFTs. TECHNIQUE: Real-time ultrasound of the right upper quadrant with image documentation. COMPARISON: No relevant prior studies available. FINDINGS: Liver: Coarse echogenicity of the liver may relate to fatty infiltration and/or hepatocellular dysfunction. Gallbladder: Cholelithiasis. No ultrasound evidence of acute cholecystitis. Common bile duct: The common bile duct is dilated measuring 1.4 cm. There are however filling defects the common bile duct consistent with choledocholithiasis. Pancreas: The visualized pancreas is within normal limits. Prominent pancreatic duct measuring 0.3 cm. IMPRESSION: 1. Coarse echogenicity of the liver may relate to fatty infiltration and/or hepatocellular dysfunction. 2. Cholelithiasis. No ultrasound evidence of acute cholecystitis. 3. Dilated common bile duct and pancreatic duct, "double duct sign ". This is concerning for an ampullary lesion. 4. There are however filling defects the common bile duct consistent with choledocholithiasis. Electronically signed by: Dora Barajas MD 11/03/23 02:59 AM Diagnostic Findings Chest x-ray as per my interpretation: Atelectasis, cardiomegaly EKG as per my interpretation : Rate 70, NSR, normal axis, incomplete RBBB, LVH, T wave abnormalities inferior and septal leads, PVCs
--- NOTE | 2023-11-03 06:55 | XRay Report ---
XR chest 1V portable CLINICAL HISTORY: low o2 TECHNIQUE: Single frontal radiograph of the chest was obtained. Comparison: None available at the time of this dictation. FINDINGS: No lines and tubes are seen. Cardiomegaly is noted. The aortic arch is calcified. The lungs are clear . No evidence of pleural effusion or pneumothorax. IMPRESSION: No acute abnormalities and in particular no radiographic evidence of pneumonia. ACT 112: Negative or not required by law. Electronically signed by: Manjeet Smith M.D. 11/03/2023 6:53 AM
[2023-11-03] MEDS: Patient's HEIGHT &/or WEIGHT Needed SCH (08:01)
[2023-11-03] MEDS: lamoTRIgine 25 MG TAB PO SCH (09:25)
[2023-11-03] MEDS: levETIRAcetam 500 MG TAB PO SCH (09:25)
[2023-11-03] MEDS: GABAPENTIN 600 MG TAB PO ONE (09:26)
[2023-11-03] MEDS ORDERED: Nursing to Pharmacy Communication SCH (10:00)
[2023-11-03] MEDS: PROMETHAZINE 6.25 MG/50.25 ML NSS IV ONE (10:28)
[2023-11-03] MEDS: PROMETHAZINE HCL 6.25 MG in SODIUM CHLORIDE 0.9% 50 ML IV PRN (10:31)
[2023-11-03] MEDS: NSS + 20MEQ KCL 20 MEQ/1,000 ML BAG IV SCH (13:55)
[2023-11-03] MEDS: GABAPENTIN 600 MG TAB PO SCH (13:57)
--- NOTE | 2023-11-03 15:38 | History & Physical Report ---
Date of Service November 03, 2023 Assessment & Plan (1) Nausea & vomiting: (2) Biliary obstruction: Plan: Patient is 58 year old female with PMH HTN, COPD, tobacco use, history drug abuse, on chronic methadone currently, history hepatitis B and C, seizure disorder, depression presented to ER from [facility] for medical clearance with c/o depression and reported methadone overdose as well as N/V x 1 week. Denies abdominal pain or fever or chills. In ER afebrile. Initially hypertensive which improved after home BP meds restarted. No Leukocytosis. T. bili: 0.9, AST: 87, ALT: 82, alk phos: 181 Gallbladder ultrasound: 1. Coarse echogenicity of the liver may relate to fatty infiltration and/or hepatocellular dysfunction. 2. Cholelithiasis. No ultrasound evidence of acute cholecystitis. 3. Dilated common bile duct and pancreatic duct, "double duct sign ". This is concerning for an ampullary lesion. 4. There are however filling defects the common bile duct consistent with choledocholithiasis. There is concern for choledocholithiasis and decision was made to transfer to [facility] for ERCP as is unavailable at [facility]. Patient has been accepted to [facility] by Dr. Travis of [facility] hospitalist service, however has been in ER for 19 hours and still awaiting bed. Decision was made to admit patient to [facility] currently while awaiting bed opening at [facility] Patient still without abdominal pain and has benign abdominal exam currently, and remains afebrile Will obtain CBC, CMP today NPO except meds in anticipation of possible procedure IVF Plan to transfer to [facility] for possible ERCP when bed available Accepting physician is Dr. Travis with hospitalist service CBC, CMP in am if still here at [facility] (3) Depression: (4) Suicidal ideation: Plan: Depression with initially reported methadone overdose for suicide attempt. Self checked in at [facility] psychiatric unit yesterday 11/02/2023 and was referred to [facility] ER for medical clearance Urine drug screen positive methadone only Patient currently reports she only said she overdosed on methadone to attempt to get inpatient treatment at the [facility]. Patient reports that for the past 6 days that she has been needing to receive methadone daily at the clinic secondary to positive urine drug screen 1 week ago. Patient states that she does not have access to any methadone at home. Denies other drug use. Suicide precautions One-to-one observation Psychiatry consult (5) Hypertension: Plan: Initially was noted to be hypertensive upon ER arrival. Home medications have been restarted and BPs have improved. Patient reports missed home dosing of BP meds for several days Continue amlodipine, lisinopril Monitor BP (6) Bradycardia: Plan: Noted to have bradycardia during ER course. Rates 30's-50's Appears sinus on monitor Obtain new EKG since bradycardic. Initial EKG sinus rhythm with PVCs and T wave changes Denies CP, SOB, dizziness, syncope, palpitations Monitor on telemetry Initially thought may be secondary to overdose however unclear if patient actually had overdose as now she denies overdose. Initially thought patient on atenolol however patient denies any hasn't been recently filled in outpatient pharmacy May need cardiology consult (7) History of drug abuse: Plan: History narcotic drug abuse as well as IV drug abuse Patient denies recent use Is on methadone and follows with [facility] in [place] Will hold methadone currently (8) Seizure disorder: Plan: Reports last seizure year ago Continue home lamotrigine, levetiracetam (9) COPD (chronic obstructive pulmonary disease): Plan: Self reports history COPD. Not on inhalers CXR: no acute infiltrate Denies SOB, cough. No sign of COPD exacerbation (10) Tobacco use: Plan: Nicotine patch Smoking cessation encouraged DVT Prophylaxis SCDs for now Disposition PCU. Awaiting transfer to [facility] for possible ERCP Full Code as per discussion with pt Pt was seen and care coordinated with Dr Li. See addendum I spent a total of 80 minutes reviewing notes, outpatient records, labs, medication, coordinating, documenting and providing care for this patient excluding time spent in the performance of separately billed services. History of Present Illness Chief Complaint: Suicidal ideations, attempt with reported methadone overdose and N/V Primary Care Provider: Marcelina Bird Patient is 58 year old female with PMH HTN, COPD, tobacco use, history drug abuse, on chronic methadone currently, history hepatitis B and C, seizure disorder, depression presented to ER from [facility] for medical clearance with c/o depression and reported methadone overdose. Patient initially seen in ER for medical clearance. She had reported to ER staff that she is suffering from depression and had suicidal ideations and yesterday had suicide attempt by overdosing on methadone. Patient was evaluated in ER. Hospitalist was contacted for medical admission. Further workup was completed and patient was found to have cholelithiasis with dilated CBD and pancreatic duct with concern for choledocholithiasis and decision was made to transfer to [facility] for ERCP as is unavailable at [facility]. Patient has been accepted to [facility] by Dr. Travis of [facility] hospitalist service, however has been in ER for 19 hours and still awaiting bed. I called [facility] and was told no ETA on bed opening. Decision was made to admit patient to [facility] currently while awaiting bed opening at [facility]. Currently in ER patient reports she is tired and hungry but denies any other complaint. Patient states history oral narcotic and IV drug abuse in past. States hasn't used for many years since being on methadone. She follows with the [facility] in [place]. She reports Last Wednesday had urine drug screen at [facility] and was told positive for marijuana, fentanyl and methadone and was then restricted on her methadone and had to go on daily basis for administration of methadone starting last Wednesday10/29/23. She reports went to clinic Wednesday and Wednesday (yesterday) for her daily methadone doses. States prior to this she received oral liquid methadone in 2 week supply and followed up on a biweekly basis. Patient denies any other recreational drug use and states was taking methadone as prescribed. She states that she has history of depression and not on medications. She reports 1 year ago her had WA and required ICU admission and intubation with prolonged hospital stay and unfortunately . Since her 's she reports worsening depression with ongoing sadness, crying, not doing activities. She states the past 6 days she has been feeling "better off " as she is very frustrated about her positive urine drug screen and states she feels it was false positive as she denies using any other drugs. She states has been following with outpatient counselor for depression and has wanted additional help and inpatient evaluation however she reports she was denied in past. She has to be dependent on her daughter for transportation as she doesn't drive with history of seizures. Reports last seizure a year ago. The past 6 days worsening depression and feels "bad" she is making her daughter take her daily to methadone clinic for her doses. She felt she needs more help so self presented to [facility] for evaluation and admission. Nithya states "I told them I overdosed on methadone because I knew that would get me admitted because I've been denied before." Patient tells this provider that she did not overdose on methadone as she has been going daily for her administration since 6 days ago. She says she "would not overdose". She feels down and wants help. Currently she is denying self harm. She reports that she has had admissions to hospital for accidental drug overdose years ago but denies to me any history of mental health admissions or prior suicide attempt. Patient states for past week having nausea, vomiting and decreased appetite. Denies any abdominal pain, noted skin discoloration or yellowing. Reports being told in past "something bad with gallbladder" but she followed low fat diet initially and didn't have any further follow up. She is not on atenolol or other beta rain medication. She is unsure what her heart rate is normally but doesn't think she has been told about bradycardia in past. Denies CP, SOB, dizziness, syncope, palpitations. She admits that she did not take her home medications for several days including her home BP meds prior to initial ER arrival on 11/02/23. Denies fever/chills, diaphoresis, hematemesis, melena, hematochezia, diarrhea, [place], vision changes, neck pain, CP, SOB, orthopnea, palpitations, cough, otalgia, rhinorrhea, abdominal pain, paresthesias, weakness, extremity edema, rashes, urinary symptoms. Allergies Allergy/AdvReac Type Severity Reaction Status Date / Time No Known Allergies Allergy Verified 11/02/23 21:35 Home Medications Medication Instructions Recorded Confirmed Type gabapentin 600 mg tablet 600 mg PO TID 11/02/23 11/03/23 History lamotrigine 100 mg tablet 100 mg PO HS 11/02/23 11/03/23 History lamotrigine 25 mg tablet 75 mg PO QAM 11/02/23 11/03/23 History levetiracetam 500 mg tablet 500 mg PO BID 11/02/23 11/03/23 History lisinopril 40 mg tablet 40 mg PO DAILY 11/02/23 11/03/23 History methadone 147 mg PO DIRECTED 11/02/23 11/03/23 History amlodipine 5 mg tablet 5 mg PO DAILY 11/03/23 11/03/23 History Past Med/Surg History Problem List (Updated 11/03/23 @ 17:54 by Mamta Bro PA-C) Nausea & vomiting Depression History of drug abuse COPD (chronic obstructive pulmonary disease) Tobacco use Seizure disorder Biliary obstruction Suicidal ideation (Acute) Frequent PVCs (Acute) Bradycardia (Acute) Hypertension (Acute) Narcotic overdose (Acute) Medical History Hypertension Depression Family History (Updated 11/03/23 @ 17:10 by Mamta Bro PA-C) Other Diabetes Heart disease Social History Smoking Status: Current every day smoker Tobacco Type: Cigarettes and E-cigarettes / Vaping Do You Dip or Chew Tobacco: No; Hx Alcohol Use: No Hx Substance Use: Yes Prescribed Medications: Opiates Last Used Substance: Days (ago) Preferred Language: [place] [employer] Required: No Beliefs That Will Affect Care: None Current Living Situation: Alone Other Information That Helps Us Care for You: No Feels Safe at Home: Yes Safety Concerns: Feels Safe At This Time Assistive Devices: Denture - Upper, Denture - Lower and Glasses Review of Systems Review of Systems: All systems reviewed & are unremarkable except as noted in HPI & below Physical Exam Physical Exam: General: no distress, thin female Head: normocephalic, atraumatic Eyes: PERRL, conjunctiva non-injected, anicteric ENT: normal inspection external ears, nose, mucous membranes moist Neck: supple, trachea midline Lungs: clear, no respiratory distress, no wheezing/rhonchi/rales CV: regular rhythm, +bradycardia rate 56, + murmur, no JVD, no pretibial edema Abd: normal BS, soft, non-tender to palpation Ext: no cyanosis, no calf tenderness Neuro: A&O x 3, no focal deficits noted, flat affect, becomes tearful speaking about her late Skin: warm, dry Results & Data Results & Data Vital Signs (Past 12 Hours) Vital Signs Pulse Pulse Resp BP BP Pulse Ox O2 Del Method 11/03/23 14:39 46 L 13 95 Nasal Cannula 11/03/23 14:33 44 L 92 Nasal Cannula 11/03/23 14:30 140/69 11/03/23 14:24 59 L 15 98 Nasal Cannula 11/03/23 14:03 61 14 99 Nasal Cannula 11/03/23 14:02 164/88 H 11/03/23 13:45 33 L 11/03/23 13:33 45 L 19 97 Nasal Cannula 11/03/23 13:30 155/92 H 11/03/23 13:15 51 L 20 97 Nasal Cannula 11/03/23 13:00 113/69 11/03/23 13:00 50 L 19 113/69 95 Nasal Cannula 11/03/23 12:39 49 L 18 95 Nasal Cannula 11/03/23 12:31 47 L 109/64 95 Nasal Cannula 11/03/23 12:27 45 L 16 95 Nasal Cannula 11/03/23 12:00 94 Nasal Cannula 11/03/23 11:49 46 L 16 118/71 95 Nasal Cannula 11/03/23 11:24 44 L 95 Nasal Cannula 11/03/23 10:51 45 L 97 Nasal Cannula 11/03/23 10:36 63 15 92 Nasal Cannula 11/03/23 10:30 139/94 11/03/23 10:24 84 18 93 11/03/23 10:06 51 L 14 93 11/03/23 09:30 152/87 H 11/03/23 09:30 152/87 H 11/03/23 09:21 70 17 94 11/03/23 08:30 121/59 L 11/03/23 08:30 121/59 L 11/03/23 08:24 47 L 15 94 11/03/23 08:00 101/58 L 11/03/23 08:00 46 L 14 96 11/03/23 07:00 48 L 18 94 11/03/23 07:00 105/59 L 11/03/23 07:00 105/59 L 11/03/23 06:30 114/64 11/03/23 06:30 114/64 11/03/23 06:30 114/64 11/03/23 06:30 56 L 13 95 11/03/23 06:12 79 13 94 11/03/23 05:31 48 L 11/03/23 05:30 110/62 11/03/23 05:15 55 L 17 93 11/03/23 05:00 121/64 11/03/23 04:30 56 L 21 92 11/03/23 04:30 96/58 L 11/03/23 04:30 96/58 L 11/03/23 04:24 54 L 15 93 11/03/23 04:00 104/68 11/03/23 03:48 58 L 15 94 O2 Flow Rate 11/03/23 14:39 2 11/03/23 14:33 2 11/03/23 14:30 11/03/23 14:24 2 11/03/23 14:03 2 11/03/23 14:02 11/03/23 13:45 11/03/23 13:33 2 11/03/23 13:30 11/03/23 13:15 2 11/03/23 13:00 11/03/23 13:00 2 11/03/23 12:39 2 11/03/23 12:31 2 11/03/23 12:27 2 11/03/23 12:00 2 11/03/23 11:49 2 11/03/23 11:24 2 11/03/23 10:51 2 11/03/23 10:36 2 11/03/23 10:30 11/03/23 10:24 11/03/23 10:06 11/03/23 09:30 11/03/23 09:30 11/03/23 09:21 11/03/23 08:30 11/03/23 08:30 11/03/23 08:24 11/03/23 08:00 11/03/23 08:00 11/03/23 07:00 11/03/23 07:00 11/03/23 07:00 11/03/23 06:30 11/03/23 06:30 11/03/23 06:30 11/03/23 06:30 11/03/23 06:12 11/03/23 05:31 11/03/23 05:30 11/03/23 05:15 11/03/23 05:00 11/03/23 04:30 11/03/23 04:30 11/03/23 04:30 11/03/23 04:24 11/03/23 04:00 11/03/23 03:48 Laboratory Results Short CBC 11/02/23 Range/Units 20:13 WBC 5.46 (4.8-10.8) K/ul Hgb 16.4 H (12.0-16.0) g/dl Hct 49.4 H (37.0-47.0) % Plt Count 114 L (130-400) K/uL BMP 11/02/23 11/03/23 20:13 00:24 Sodium 137 Potassium 3.8 Chloride 105 Carbon Dioxide 27 BUN 26 H Creatinine 1.08 Glucose 94 Calcium 11.8 H 10.5 H Liver Function 11/02/23 Range/Units 20:13 Total Bilirubin 0.9 (0.2-1.0) mg/dl AST 87 H (13-39) U/L ALT 82 H (7-52) U/L Alkaline Phosphatase 181 H (34-104) U/L Albumin 4.7 (3.4-5.0) gm/dl Urine 11/02/23 11/02/23 Range/Units 20:44 22:54 Urine Color Yellow Yellow Urine Appearance Clear Clear (Clear) Urine pH 6.0 6.0 (4.5-7.5) Ur Specific [place] 1.018 1.015 (1.000-1.030) Urine Protein 1+ H Trace H (Negative) Urine Glucose (UA) Negative Negative (Negative) Diagnostic Findings Chest X-Ray 11/02/23 21:38 XR chest 1V portable CLINICAL HISTORY: low o2 TECHNIQUE: Single frontal radiograph of the chest was obtained. Comparison: None available at the time of this dictation. FINDINGS: No lines and tubes are seen. Cardiomegaly is noted. The aortic arch is calcified. The lungs are clear. No evidence of pleural effusion or pneumothorax. IMPRESSION: No acute abnormalities and in particular no radiographic evidence of pneumonia. ACT 112: Negative or not required by law. Electronically signed by: Manjeet Smith M.D. 11/03/2023 6:53 AM Gallbladder Ultrasound 11/02/23 22:15 Exam(s): US GALLBLADDER EXAM: US Abdomen Limited, Gallbladder CLINICAL HISTORY: Abnormal LFTs. TECHNIQUE: Real-time ultrasound of the right upper quadrant with image documentation. COMPARISON: No relevant prior studies available. FINDINGS: Liver: Coarse echogenicity of the liver may relate to fatty infiltration and/or hepatocellular dysfunction. Gallbladder: Cholelithiasis. No ultrasound evidence of acute cholecystitis. Common bile duct: The common bile duct is dilated measuring 1.4 cm. There are however filling defects the common bile duct consistent with choledocholithiasis. Pancreas: The visualized pancreas is within normal limits. Prominent pancreatic duct measuring 0.3 cm. IMPRESSION: 1. Coarse echogenicity of the liver may relate to fatty infiltration and/or hepatocellular dysfunction. 2. Cholelithiasis. No ultrasound evidence of acute cholecystitis. 3. Dilated common bile duct and pancreatic duct, "double duct sign ". This is concerning for an ampullary lesion. 4. There are however filling defects the common bile duct consistent with choledocholithiasis. Electronically signed by: Dora Barajas MD 11/03/23 02:59 AM Supervising Physician Co-Signing Physician Notes Attending addendum; The patient was seen and examined in telemetry unit in presence of the sitter She was in the ER admitted last night with possible methadone overdose was noted to have dilated bile duct on ultrasound and possible pancreatic head lesion She complained to have nausea vomiting for the last few days or so prior to admission She was waiting to be transferred to [facility] for ERCP and subsequent management of the dilated bile duct Did not get any better as of admission from the ER and then all of a sudden she got a bed in [place] and will be transferred to that hospital for continued care On examination Anxious but otherwise hemodynamically stable Noted to have bradycardia at 57 Clear chest on auscultation Heart-S1-S2, regular Abdomen-benign Extremities-negative Her admission labs and imaging studies reviewed History of drug abuse was brought in with possible suicidal ideation and noted to have biliary obstruction requiring ERCP Has been on one-to-one sitter for now-psychiatric evaluation will be done if he stays in the hospital He has a bed in [facility] and will be transferred to [place] for continued care Agree with assessment plan as outlined above by Mamta Bro PA-C and the patient was seen and examined and evaluated by me as well. I take the full responsibility of assessment and plan as mentioned above by MONET Evans DR (5) Hypertension Hypertension type: unspecified Qualified Code(s): I10 - Essential (primary) hypertension
[2023-11-03] MEDS: NICOTINE 14 MG/24 HR PATCH TD SCH (16:47)
--- NOTE | 2023-11-03 19:07 | Discharge Summary ---
Date of Service November 03, 2023 Admission HPI Per Admitting Provider Patient is 58 year old female with PMH HTN, COPD, tobacco use, history drug abuse, on chronic methadone currently, history hepatitis B and C, seizure disorder, depression presented to ER from [facility] for medical clearance with c/o depression and reported methadone overdose. Patient initially seen in ER for medical clearance. She had reported to ER staff that she is suffering from depression and had suicidal ideations and yesterday had suicide attempt by overdosing on methadone. Patient was evaluated in ER. Hospitalist was contacted for medical admission. Further workup was completed and patient was found to have cholelithiasis with dilated CBD and pancreatic duct with concern for choledocholithiasis and decision was made to transfer to [facility] for ERCP as is unavailable at [facility]. Patient has been accepted to [facility] by Dr. Travis of [facility] hospitalist service, however has been in ER for 19 hours and still awaiting bed. I called [facility] and was told no ETA on bed opening. Decision was made to admit patient to [facility] currently while awaiting bed opening at [facility]. Currently in ER patient reports she is tired and hungry but denies any other complaint. Patient states history oral narcotic and IV drug abuse in past. States hasn't used for many years since being on methadone. She follows with the [facility] in [place]. She reports Last Wednesday had urine drug screen at [facility] and was told positive for marijuana, fentanyl and methadone and was then restricted on her methadone and had to go on daily basis for administration of methadone starting last Wednesday10/29/23. She reports went to clinic Wednesday and Wednesday (yesterday) for her daily methadone doses. States prior to this she received oral liquid methadone in 2 week supply and followed up on a biweekly basis. Patient denies any other recreational drug use and states was taking methadone as prescribed. She states that she has history of depression and not on medications. She reports 1 year ago her had [facility] and required ICU admission and intubation with prolonged hospital stay and unfortunately . Since her 's she reports worsening depression with ongoing sadness, crying, not doing activities. She states the past 6 days she has been feeling "better off " as she is very frustrated about her positive urine drug screen and states she feels it was false positive as she denies using any other drugs. She states has been following with outpatient counselor for depression and has wanted additional help and inpatient evaluation however she reports she was denied in past. She has to be dependent on her daughter for transportation as she doesn't drive with history of seizures. Reports last seizure a year ago. The past 6 days worsening depression and feels "bad" she is making her daughter take her daily to methadone clinic for her doses. She felt she needs more help so self presented to [facility] for evaluation and admission. Nithya states "I told them I overdosed on methadone because I knew that would get me admitted because I've been denied before." Patient tells this provider that she did not overdose on methadone as she has been going daily for her administration since 6 days ago. She says she "would not overdose". She feels down and wants help. Currently she is denying self harm. She reports that she has had admissions to hospital for accidental drug overdose years ago but denies to me any history of mental health admissions or prior suicide attempt. Patient states for past week having nausea, vomiting and decreased appetite. Denies any abdominal pain, noted skin discoloration or yellowing. Reports being told in past "something bad with gallbladder" but she followed low fat diet initially and didn't have any further follow up. She is not on atenolol or other beta rain medication. She is unsure what her heart rate is normally but doesn't think she has been told about bradycardia in past. Denies CP, SOB, dizziness, syncope, palpitations. She admits that she did not take her home medications for several days including her home BP meds prior to initial ER arrival on 11/02/23. Denies fever/chills, diaphoresis, hematemesis, melena, hematochezia, diarrhea, BRAXTON, vision changes, neck pain, CP, SOB, orthopnea, palpitations, cough, otalgia, rhinorrhea, abdominal pain, paresthesias, weakness, extremity edema, rashes, urinary symptoms. Admission Exam Per Admitting Provider General: no distress, thin female Head: normocephalic, atraumatic Eyes: PERRL, conjunctiva non-injected, anicteric ENT: normal inspection external ears, nose, mucous membranes moist Neck: supple, trachea midline Lungs: clear, no respiratory distress, no wheezing/rhonchi/rales CV: regular rhythm, +bradycardia rate 56, + murmur, no JVD, no pretibial edema Abd: normal BS, soft, non-tender to palpation Ext: no cyanosis, no calf tenderness Neuro: A&O x 3, no focal deficits noted, flat affect, becomes tearful speaking about her late Skin: warm, dry Principal Diagnosis Choledocholithiasis Depression, suicidal ideations Discharge Exam General: no distress, thin female Head: normocephalic, atraumatic Eyes: PERRL, conjunctiva non-injected, anicteric ENT: normal inspection external ears, nose, mucous membranes moist Neck: supple, trachea midline Lungs: clear, no respiratory distress, no wheezing/rhonchi/rales CV: regular rhythm, +bradycardia, + murmur, no JVD, no pretibial edema Abd: normal BS, soft, non-tender to palpation Ext: no cyanosis, no calf tenderness Neuro: A&O x 3, no focal deficits noted, flat affect, becomes tearful speaking about her late Skin: warm, dry Discharge Data Allergies Allergy/AdvReac Type Severity Reaction Status Date / Time No Known Allergies Allergy Verified 11/02/23 21:35 Consultations 11/02/23 21:29 ED Decision to Admit Stat 11/03/23 03:58 Burn CD for patient Stat 11/03/23 17:36 Consult Psychiatry Routine Ordered Studies 11/02/23 22:15 US gallbladder Stat Hospital Course (1) Nausea & vomiting: (2) Biliary obstruction: Patient is 58 year old female with PMH HTN, COPD, tobacco use, history drug abuse, on chronic methadone currently, history hepatitis B and C, seizure disorder, depression presented to ER from [facility] for medical clearance with c/o depression and reported methadone overdose as well as N/V x 1 week. Denies abdominal pain or fever or chills. In ER afebrile. Initially hypertensive which improved after home BP meds restarted. No Leukocytosis. T. bili: 0.9, AST: 87, ALT: 82, alk phos: 181 Gallbladder ultrasound: 1. Coarse echogenicity of the liver may relate to fatty infiltration and/or hepatocellular dysfunction. 2. Cholelithiasis. No ultrasound evidence of acute cholecystitis. 3. Dilated common bile duct and pancreatic duct, "double duct sign ". This is concerning for an ampullary lesion. 4. There are however filling defects the common bile duct consistent with choledocholithiasis. There is concern for choledocholithiasis and decision was made to transfer to [facility] for ERCP as is unavailable at [facility]. Patient has been accepted to [facility] by Dr. Travis of [facility] hospitalist service, however has been in ER for 19 hours and still awaiting bed. Decision was made to admit patient to [facility] currently while awaiting bed opening at [facility] Patient still without abdominal pain and has benign abdominal exam currently, and remains afebrile NPO except meds in anticipation of possible procedure IVF Plan to transfer to [facility] for possible ERCP when bed available Accepting physician is Dr. Travis with hospitalist service Soon after being admitted bed became available at [facility] and patient currently being transferred. Patient's condition remains stable and denies any abdominal pain, has not had any vomiting. Vitals remained stable (3) Depression: (4) Suicidal ideation: Depression with initially reported methadone overdose for suicide attempt. Self checked in at [facility] psychiatric unit yesterday 11/02/2023 and was referred to [facility] ER for medical clearance Urine drug screen positive methadone only Patient currently reports she only said she overdosed on methadone to attempt to get inpatient treatment at the [facility]. Patient reports that for the past 6 days that she has been needing to receive methadone daily at the clinic secondary to positive urine drug screen 1 week ago. Patient states that she does not have access to any methadone at home. Denies other drug use. Suicide precautions One-to-one observation Psychiatry consult (5) Hypertension: Initially was noted to be hypertensive upon ER arrival. Home medications have been restarted and BPs have improved. Continue amlodipine, lisinopril Monitor BP (6) Bradycardia: Noted to have bradycardia Rates 30's-60's Appears sinus on monitor Denies CP, SOB, dizziness, syncope, palpitations Monitor on telemetry Initially thought may be secondary to overdose however unclear if patient actually had overdose as now she denies overdose. Initially thought patient on atenolol however patient denies any hasn't been recently filled in outpatient pharmacy May need cardiology consult (7) History of drug abuse: History narcotic drug abuse as well as IV drug abuse Patient denies recent use Is on methadone and follows with [facility] in [place] Will hold methadone currently (8) Seizure disorder: Reports last seizure year ago Continue home lamotrigine, levetiracetam (9) COPD (chronic obstructive pulmonary disease): Self reports history COPD. Not on inhalers CXR: no acute infiltrate Denies SOB, cough. No sign of COPD exacerbation (10) Tobacco use: Nicotine patch Smoking cessation encouraged DVT Prophylaxis SCDs for now Transfer to [facility] for possible ERCP Full Code as per discussion with pt Pt was seen and care coordinated with Dr Li. See addendum Total Time Total Time Spent Total Time Spent (In Minutes): 30 Discharge Plan Discharge Items Patient Disposition: Transfer Acute Care Hospital Reason For Visit: SI, CHOLEDOCHOLITHIASIS Discharge Diagnosis: Choledocholithiasis, depression, SI Condition on Discharge: Fair Activity: As commented below Activity Comment: Ambulate as tolerated Non-emergency contact: Primary Care Provider Call non-emergency contact if: your symptoms worsen and you have a fever Follow-up/Referrals: Marcelina Bird [Primary Care Provider] - Diet: Nothing by Mouth Addtl Attending Provider Instructions: Patient transferred to [facility] for concern for Choledocholithiasis and possible need for ERCP procedure. Patient currently n.p.o. except for meds. Further workup and recommendations per [facility]. Patient also presented with depression and initially reported methadone overdose. Patient now reports made false statement of methadone overdose to attempt to get admitted at [facility] psychiatric unit and denies methadone overdose or other drug overdose. Placed on suicidal precautions. Will need Psychiatry evaluation. Pending Studies at Discharge: No Stand-Alone Forms: My [facility] Skilled Items Patient informed of condition?: Yes DNR: No Discharge Level of Care: Other Communicable Disease: No Discharge Prognosis: Stable Lines: Peripheral IV Urinary Catheter: No Medications and DC Order Prescriptions: Continued gabapentin 600 mg tablet 600 mg PO TID levetiracetam 500 mg tablet 500 mg PO BID lamotrigine 25 mg tablet 75 mg PO QAM lisinopril 40 mg tablet 40 mg PO DAILY lamotrigine 100 mg tablet 100 mg PO HS amlodipine 5 mg tablet 5 mg PO DAILY Held methadone 147 mg PO DIRECTED Hold Instructions: Resume on 11/08/23. Hold for now. Will need re-evaluation for resuming. Rx Instructions: Pt takes 147 mg methadone concentrate PO as directed Discharge Orders: Discharge Order (Routine); Ordered 11/03/23 Ordered By: Walter Morataya Admission Data Admit Date/Time: 11/03/23 15:45 Attending Provider: Marilee Li Admit Provider: Marilee Li Primary Care Provider: Marcelina Bird Other Providers: Walter Morataya; Tiffanie Sykes; Justin Martins; Ayaz Bo Jr; Estee Thurston; Valeria Anderson; Gen Cartagena Other Interventions: Discharge Summary Assessment (RN) Last Done: 11/03/23 20:02 Supervising Physician Co-Signing Physician Notes Attending addendum; The patient was seen and examined in telemetry unit in presence of the sitter She was in the ER admitted last night with possible methadone overdose was noted to have dilated bile duct on ultrasound and possible pancreatic head lesion She complained to have nausea vomiting for the last few days or so prior to admission She was waiting to be transferred to [facility] for ERCP and subsequent management of the dilated bile duct Did not get any better as of admission from the ER and then all of a sudden she got a bed in [place] and will be transferred to that hospital for continued care On examination Anxious but otherwise hemodynamically stable Noted to have bradycardia at 57 Clear chest on auscultation Heart-S1-S2, regular Abdomen-benign Extremities-negative Her admission labs and imaging studies reviewed History of drug abuse was brought in with possible suicidal ideation and noted to have biliary obstruction requiring ERCP Has been on one-to-one sitter for now-psychiatric evaluation will be done if he stays in the hospital He has a bed in [facility] and will be transferred to [place] for continued care Agree with assessment plan as outlined above by Mamta Bro PA-C and the patient was seen and examined and evaluated by me as well. I take the full responsibility of assessment and plan as mentioned above by MONET Evans DR
[2023-11-03] MEDS: ACETAMINOPHEN 500 MG TAB PO PRN (19:09)
[2023-11-03] MEDS: lisinopril 40 MG TAB PO STA (19:42)
[2023-11-03] MEDS ORDERED: amLODIPine BESYLATE 5 MG TAB PO SCH (21:00)
[2023-11-03] MEDS ORDERED: lamoTRIgine 100 MG TAB PO SCH (21:00)
[2023-11-03] MEDS ORDERED: lisinopril 40 MG TAB PO SCH (21:00)
--- NOTE | 2023-11-04 00:26 | Electrocardiogram Report ---
Test Reason : Blood Pressure : / mmHG Vent. Rate : 070 BPM Atrial Rate : 070 BPM P-R Int : 112 ms QRS Dur : 096 ms QT Int : 394 ms P-R-T Axes : 003 049 023 degrees QTc Int : 425 ms Sinus rhythm with frequent Premature ventricular complexes Incomplete right bundle branch block Minimal voltage criteria for LVH, may be normal variant ( Sokolow-Griffin ) Cannot rule out Septal infarct , age undetermined Abnormal ECG No previous ECGs available Confirmed by Boo Austin ([id number]) on 11/04/2023 12:26:15 AM Referred By: Marcelina Bird Confirmed By:Boo Austin
[2023-11-04] MEDS ORDERED: amLODIPine BESYLATE 5 MG TAB PO SCH (09:00)
[2023-11-04 11:42] LABS: Hepatitis A Antibody IgM NON-REACTIVE (NON-REACTIVE); Hepatitis B Core Antibody IgM REACTIVE (NON-REACTIVE)
[2023-11-04] MEDS ORDERED: lisinopril 40 MG TAB PO SCH (21:00)
[2023-11-05 17:38] LABS: Methadone, Ur Metabolite >10000 ng/mL (<100); Methadone, Ur Verification >10000 ng/mL (<100)
== END 2023-11-03 20:03 | disposition short-term general hospital (02) | DRG 445 ==
LOC: ED 19:33 → 2S 11-03 15:45

== ENCOUNTER 2024-04-05 13:30 | Inpatient (IN) ==
--- NOTE | 2024-04-05 14:08 | XRay Report ---
XR chest 1V not portable HISTORY: 58 years-old Female sob acute shortness of breath COMPARISON: 11/02/2023 TECHNIQUE: AP view the chest FINDINGS: Limited exam secondary to positioning. The cardiac silhouette is enlarged. Mild chronic interstitial coarsening. Linear left midlung left basilar scarring versus atelectasis. No pneumothorax, large pleu ral effusion. Ill-defined patchy right upper lung and bibasilar opacities. IMPRESSION: 1. Limited exam secondary to positioning. 2. Cardiomegaly without pulmonary edema. 3. Mild patchy bibasilar and right upper lung opacities may represent a mild infectious or inflammato ry pneumonitis. ACT 112: Negative or not required by law. The above report was generated using voice recognition software. It may contain grammatical, syntax o r spelling errors. Electronically signed by: Lucio Ochoa M.D. 04/05/2024 2:07 PM
--- NOTE | 2024-04-05 14:26 | Emergency Department Note ---
Impression & Plan NGOZI (acute kidney injury), Elevated liver transaminase level, Narcotic overdose ED Provider Note CHIEF COMPLAINT: Overdose HISTORY OF PRESENT ILLNESS: This 58-year-old female patient presents to the emergency department via private vehicle for evaluation of accidental overdose from methadone. The patient had not had methadone since before . She had been prescribed it previously for quite a few years, and took it regularly never missing doses. She reports she decided she was going to stop taking it prior to , and abruptly stopped. She states she began to have significant mental health decline, and suicidal ideation. [facility]. She reports today she had been administered her daily medications, which included 145 mg of methadone. This was at approximately 9:00 this morning. She states since that time she has had shortness of breath, and lethargy. She was sent here by the [facility] for evaluation. REVIEW OF SYSTEMS: A review of systems was performed with positives and pertinent negatives listed in the history of present illness. All other systems were reviewed and are negative. ALLERGIES: See below MEDICATIONS: See below PMH: See below PHYSICAL EXAM: VITALS: Vitals are noted on the nurse's note and reviewed by myself. Vital signs stable. GENERAL: 58-year-old female, in slight distress, lethargic, difficult to arouse. SKIN: The skin was without rashes, erythema, edema, or bruising. HEAD: Normocephalic atraumatic. EYES: Pupils pinpoint, slow to react. Conjunctivae without injection, sclerae without icterus. Extraocular movements intact. NOSE: Patent, turbinates without inflammation or discharge. No sinus tenderness. MOUTH: Mucous membranes moist. No tonsillar hypertrophy. Pharynx without erythema or exudate. Uvula midline. Airway patent. Tongue does not deviate. NECK: Supple without nuchal rigidity. No lymphadenopathy. Cervical spine is nontender. No JVD. HEART: Regular rate and rhythm without murmurs gallops or rubs. LUNGS: Clear to auscultation bilaterally without wheezes, rales or rhonchi. No retractions or accessory muscle use. ABDOMEN: Positive bowel sounds x 4. Soft, nontender, without masses or organomegaly. Chilel sign negative. No guarding or rebound tenderness. MUSCULOSKELETAL: No muscle atrophy, erythema, or edema noted. Strength 5/5 throughout. NEURO: Patient was alert and oriented to person place and time. Lethargy with no focal neurological deficits. MEDICAL DECISION MAKING: The patient is a 58-year-old female who arrives to the emergency department for evaluation of the above-stated complaint. Upon evaluation the patient appears lethargic, and hypoxic with a decreased respiratory rate. She was placed on nasal cannula, for hypoxia in the 80s on room air. Initial workup was performed and nursing staff including a chest x- ray, as well as an EKG. Chest x-ray shows cardiomegaly without pulmonary edema, as well as mild patchy bibasilar and right upper lung opacities which could be infectious, or inflammatory. Lab work was obtained including CBC, CMP, and VBG. CBC shows no leukocytosis, with a stable hemoglobin and hematocrit, CMP shows an acute kidney injury, with BUN at 37, creatinine 1.64, with transaminitis. Patient does have a history of hepatitis. The patient was provided 500cc bolus NSS. VBG was obtained with pH of 7.24, CO2 60. The patient was placed on capnography, showing a respiratory rate at 7 as well as CO2 of 50. At that time it was decided the patient would be provided 0.2 mg of Narcan, which did cause an increased respiratory rate and inspiration. The patient will require hospital admission due to methadone overdose. Case management was contacted to facilitate admission to the [facility] hospitalist group. The patient was discussed with Ester Pittman PA-C and admitted to Dr. Ang. Please refer to their documentation for further patient workup and care. DIFFERENTIAL DIAGNOSIS: Infection, hypoglycemia, electrolyte abnormalities, overdose, toxicologic, cardiac sources, intracerebral event, neurologic, trauma, as well as other pathologies. Continuous teletypesetter monitor: Order was placed for continuous teletypesetter monitor. Patient was placed on the teletypesetter monitor. Patient was noted to be in normal sinus rhythm at an initial rate of 59 bpm. The chart was completed utilizing [employer] Speech voice recognition software. Grammatical errors, random word insertions, pronoun errors, and incomplete sentences are an occasional consequence of this system due to software limitations, ambient noise, and hardware issues. Any formal questions or concerns about the content, text, or information contained within the body of this dictation should be directly addressed to the physician for clarification. Past Med/Surg History Problem List (Updated 04/05/24 @ 19:26 by MARY Moralez) Hypercalcemia Elevated liver transaminase level (Acute) NGOZI (acute kidney injury) (Acute) Respiratory acidosis Hypoxia Nausea & vomiting Biliary obstruction Suicidal ideation (Acute) Frequent PVCs (Acute) Bradycardia (Acute) Narcotic overdose (Acute) Medical History History of drug abuse COPD (chronic obstructive pulmonary disease) Tobacco use Seizure disorder Hypertension Depression CVA (cerebral vascular accident) Hypertension Surgical History Hx of tubal ligation Family History Other Diabetes Heart disease Social History Smoking Status: Current every day smoker Tobacco Type: Cigarettes and E-cigarettes / Vaping Do You Dip or Chew Tobacco: No; Hx Alcohol Use: No Hx Substance Use: Yes Prescribed Medications: Opiates Last Used Substance: Days (ago) Preferred Language: Upper Sorbian Configurator Required: No Beliefs That Will Affect Care: None Current Living Situation: Alone Feels Safe at Home: Yes Assistive Devices: Denture - Upper, Denture - Lower and Glasses Allergies Allergies Allergy/AdvReac Type Severity Reaction Status Date / Time No Known Allergies Allergy Verified 11/02/23 21:35 Home Meds Home Medications Medication Instructions Recorded Confirmed gabapentin 600 mg tablet 600 mg PO TID 11/02/23 04/05/24 lamotrigine 100 mg tablet 100 mg PO HS 11/02/23 04/05/24 lamotrigine 25 mg tablet 75 mg PO QAM 11/02/23 04/05/24 levetiracetam 500 mg tablet 500 mg PO BID 11/02/23 04/05/24 lisinopril 40 mg tablet 40 mg PO DAILY 11/02/23 04/05/24 methadone 146 mg PO DIRECTED 11/02/23 04/05/24 amlodipine 5 mg tablet 5 mg PO DAILY 11/03/23 04/05/24 Results & Data (ED) Vital Signs Vital Signs - 24 hr 04/05/24 13:35 04/05/24 15:14 04/05/24 15:22 Temperature 36.3 C L 36.5 C Temperature Source Temporal Artery Scan Oral Pulse Rate 72 78 Pulse Rate [Apical] 59 L Pulse Rhythm Regular Pulse Rhythm [Apical] Regular Pulse Strength Normal Pulse Strength [Apical] Normal Respiratory Rate 20 7 L Respiratory Effort / Characteristics Non-Labored Spontaneous Non-Labored Spontaneous Respiratory Depth Normal Normal Respiratory Pattern Regular Blood Pressure 94/66 L Blood Pressure [Right Arm] 111/80 Blood Pressure Mean 75 Blood Pressure Mean [Right Arm] 90 Blood Pressure Position [Right Arm] Semi-fowlers Pulse Oximetry 95 91 Oxygen Delivery Method Nasal Cannula Oxygen Flow Rate 2 Sepsis Recent Fever Within 48 Hours No Sepsis New/Unexplained Change in Mental Status N/A Sepsis Action Taken by Nursing No Action Required 04/05/24 15:40 04/05/24 15:40 04/05/24 18:07 Temperature 36.5 C 36.5 C Temperature Source Oral Oral Pulse Rate Pulse Rate [Apical] 63 60 Pulse Rhythm Pulse Rhythm [Apical] Regular Regular Pulse Strength Pulse Strength [Apical] Normal Normal Respiratory Rate 15 15 Respiratory Effort / Characteristics Non-Labored Spontaneous Non-Labored Spontaneous Respiratory Depth Normal Normal Respiratory Pattern Regular Regular Blood Pressure Blood Pressure [Right Arm] 135/95 132/85 Blood Pressure Mean Blood Pressure Mean [Right Arm] 108 100 Blood Pressure Position [Right Arm] Semi-fowlers Semi-fowlers Pulse Oximetry 93 93 93 Oxygen Delivery Method Nasal Cannula Nasal Cannula Nasal Cannula Oxygen Flow Rate 2 2 2 Sepsis Recent Fever Within 48 Hours Sepsis New/Unexplained Change in Mental Status Sepsis Action Taken by [facility] Medications Current Medication List: was personally reviewed by me Laboratory Data Attestation: I reviewed the patient's lab results. 04/05/24 14:35 04/05/24 14:35 Lab Results 04/05/24 04/05/24 04/05/24 Range/Units 14:35 15:44 16:35 WBC 8.46 (4.8-10.8) K/ul RBC 4.95 (4.20-5.40) M/uL Hgb 15.4 (12.0-16.0) g/dl Hct 48.0 H (37.0-47.0) % MCV 97.0 (80.0-100.0) fL MCH 31.1 (25.0-34.0) pg MCHC 32.1 (32.0-36.0) g/dL RDW Std Deviation 53.1 H (36.4-46.3) fL RDW Coeff of Sol 14.8 H (11.5-14.5) % Plt Count 166 (130-400) K/uL MPV 11.0 (9.4-12.4) fL Immature Gran % (Auto) 0.4 % Neut % (Auto) 55.1 % Lymph % (Auto) 33.0 % [place] % (Auto) 10.9 % Eos % (Auto) 0.2 % Baso % (Auto) 0.4 % Neut # (Auto) 4.67 (1.40-6.50) K/uL Lymph # (Auto) 2.79 (1.20-3.40) K/uL [place] # (Auto) 0.92 H (0.11-0.59) K/uL Eos # (Auto) 0.02 (0.00-0.50) K/uL Baso # (Auto) 0.03 (0.00-0.20) K/uL Immature Gran # (Auto) 0.03 (0.01-0.20) K/uL VBG pH 7.24 L (7.36-7.41) VBG pCO2 60 H (38-50) mmHg VBG pO2 32 mmHg VBG HCO3 26 mmol/L VBG O2 Saturation < 60.0 % VBG Base Excess -2.8 mEq/L Sodium 140 (136-145) mmol/L Potassium 4.0 (3.5-5.1) mmol/L Chloride 107 (98-107) mmol/L Carbon Dioxide 26 (21-32) mmol/L Anion Gap 7 (3-11) BUN 37 H (6-23) mg/dl Creatinine 1.64 H (0.6-1.2) mg/dl Est Cr Clr Drug Dosing Not Reportable eGFR 36.07 BUN/Creatinine Ratio 22.6 H (10-20) Glucose 106 H (70-99(Fasting)) mg/dl Calcium 11.2 H (8.6-10.3) mg/dl Total Bilirubin 0.7 (0.2-1.0) mg/dl AST 102 H (13-39) U/L ALT 95 H (7-52) U/L Alkaline Phosphatase 208 H (34-104) U/L Troponin I High Sens 7.2 (0-14) pg/ml Total Protein 8.8 H (6.0-8.3) gm/dl Albumin 4.4 (3.4-5.0) gm/dl Globulin 4.4 H (2.5-4.0) gm/dl Albumin/Globulin Ratio 1.0 (0.9-2) Procalcitonin 0.12 (0-0.5) ng/ml Acetaminophen < 3 L (10-30) ug/ml Ethyl Alcohol mg/dL < 10.0 (<10.0) mg/dl Administered Medications Discontinued Medications Sodium Chloride (Nss) 500 mls @ 999 mls/hr IV .Q31M ONE Stop: 04/05/24 16:02 Last Infusion: 04/05/24 16:58 Dose: Infused Documented By: Admin: 04/05/24 15:39 Dose: 999 mls/hr Documented By: TAVARES Naloxone HCl (Naloxone Hcl 0.4 Mg/1 Ml Vial/Carp) 0.4 mg IV NOW STA Stop: 04/05/24 15:16 Last Admin: 04/05/24 15:18 Dose: 0.2 mg Documented By: TAVARES Ondansetron HCl (Ondansetron Inj 2 Mg/Ml 2 Ml Vial) 4 mg IV NOW STA Stop: 04/05/24 15:25 Last Admin: 04/05/24 15:25 Dose: 4 mg Documented By: TAVARES Imaging Data Attestation: I personally reviewed and interpreted this imaging study as follows: Radiologist's Impression: Chest X-Ray 04/05/24 13:38 XR chest 1V not portable HISTORY: 58 years-old Female sob acute shortness of breath COMPARISON: 11/02/2023 TECHNIQUE: AP view the chest FINDINGS: Limited exam secondary to positioning. The cardiac silhouette is enlarged. Mild chronic interstitial coarsening. Linear left midlung left basilar scarring versus atelectasis. No pneumothorax, large pleural effusion. Ill-defined patchy right upper lung and bibasilar opacities. IMPRESSION: 1. Limited exam secondary to positioning. 2. Cardiomegaly without pulmonary edema. 3. Mild patchy bibasilar and right upper lung opacities may represent a mild infectious or inflammatory pneumonitis. ACT 112: Negative or not required by law. The above report was generated using voice recognition software. It may contain grammatical, syntax or spelling errors. Electronically signed by: Lucio Ochoa M.D. 04/05/2024 2:07 PM Discharge Plan Visit Data Chief Complaint: Illness Stated Complaint: PT EVAL. SOB ED Provider: [facility] Midlevel Provider: Tiffanie Shultz Discharge Problem: NGOZI (acute kidney injury), Elevated liver transaminase level, Narcotic overdose Forms Stand Alone Forms: My [facility] Subarctic Limited Prescriptions Prescriptions: No Action gabapentin 600 mg tablet 600 mg PO TID levetiracetam 500 mg tablet 500 mg PO BID lamotrigine 25 mg tablet 75 mg PO QAM lisinopril 40 mg tablet 40 mg PO DAILY lamotrigine 100 mg tablet 100 mg PO HS methadone 146 mg PO DIRECTED Hold Instructions: Resume on 11/08/23. Hold for now. Will need re-evaluation for resuming. Rx Instructions: Pt takes 146 mg methadone concentrate PO as directed amlodipine 5 mg tablet 5 mg PO DAILY Referrals Referrals: Marcelina Bird [Primary Care Provider] - Discharge Problem: Narcotic overdose Qualifiers: Encounter type: initial encounter Injury intent: accidental or unintentional Q ualified Code(s): T40.601A - Poisoning by unspecified narcotics, accidental (unintentional), initial encounter
[2024-04-05 15:04] LABS: Basophils # (auto) 0.03 K/uL (0.00-0.20); Basophils % (auto) 0.4 %; Eosinophils # (auto) 0.02 K/uL (0.00-0.50); Eosinophils % (auto) 0.2 %; Hemoglobin 15.4 g/dl (12.0-16.0); Immature Granulocytes # (auto) 0.03 K/uL (0.01-0.20); Immature Granulocytes % (auto) 0.4 %; Lymphocytes # (auto) 2.79 K/uL (1.20-3.40); Mean Corpuscular Hemoglobin 31.1 pg (25.0-34.0); Mean Corpuscular Hgb Conc 32.1 g/dL (32.0-36.0); Monocytes # (auto) 0.92 K/uL (0.11-0.59); Monocytes % (auto) 10.9 %; Neutrophils # (auto) 4.67 K/uL (1.40-6.50); Neutrophils % (auto) 55.1 %; Platelet Count 166 K/uL (130-400); RDW Coefficient of Variation 14.8 % (11.5-14.5); RDW Standard Deviation 53.1 fL (36.4-46.3); Red Blood Count 4.95 M/uL (4.20-5.40); White Blood Count 8.46 K/ul (4.8-10.8)
[2024-04-05 15:12] LABS: Alanine Aminotransferase 95 U/L (7-52); Albumin Level 4.4 gm/dl (3.4-5.0); Alkaline Phosphatase 208 U/L (34-104); Anion Gap 7 (3-11); Aspartate Aminotransferase 102 U/L (13-39); BUN Creatinine Ratio 22.6 (10-20); Bilirubin,Total 0.7 mg/dl (0.2-1.0); Blood Urea Nitrogen 37 mg/dl (6-23); Calcium 11.2 mg/dl (8.6-10.3); Carbon Dioxide 26 mmol/L (21-32); Chloride 107 mmol/L (98-107); Globulin 4.4 gm/dl (2.5-4.0); Glucose 106 mg/dl (70-99(Fasting)); Sodium 140 mmol/L (136-145); Total Protein 8.8 gm/dl (6.0-8.3)
[2024-04-05] MEDS: NALOXONE HCL 0.4 MG/1 ML VIAL/CARP IV STA (15:18)
[2024-04-05] MEDS: ONDANSETRON INJ 2 MG/ML 2 ML VIAL IV STA (15:25)
[2024-04-05] MEDS: SODIUM CHLORIDE 0.9% 500 ML IV ONE (15:39)
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
[2024-04-05 15:53] LABS: Base Excess VBG -2.8 mEq/L; HCO3 VBG 26 mmol/L; Oxygen Saturation VBG < 60.0 %; PCO2 VBG 60 mmHg (38-50); PO2 VBG 32 mmHg; pH VBG 7.24 (7.36-7.41)
[2024-04-05 16:04] LABS: Troponin I High Sensitivity 7.2 pg/ml (0-14)
--- NOTE | 2024-04-05 16:11 | Electrocardiogram Report ---
Test Reason : Blood Pressure : */* mmHG Vent. Rate : 72 BPM Atrial Rate : 72 BPM P-R Int : 110 ms QRS Dur : 76 ms QT Int : 390 ms P-R-T Axes : 38 44 48 degrees QTcB Int : 427 ms Sinus rhythm with short AR Possible Left atrial enlargement Septal infarct (cited on or before 02-Nov-2023) Abnormal ECG When compared with ECG of 02-Nov-2023 19:50, Premature ventricular complexes are no longer Present T wave inversion no longer evident in Inferior leads Confirmed by Rubén Welch ([id number]) on 04/05/2024 4:11:06 PM Referred By: Confirmed By: Rubén Welch
[2024-04-05 19:54] LABS: Appearance Urine Cloudy (Clear); Bacteria Urine Automated None Seen (None Seen); Bilirubin Urine Negative (Negative); Blood Urine Negative (Negative); Cast Urine Automated >20 /lpf (0-2); Color Urine Dark Yellow; Epithelial Cell Urine Auto >20 /hpf (0-2); Glucose Urine UA Negative (Negative); Granular Casts Urine Present /lpf (None Prsent); Ketones Urine Trace (Negative); Leukocyte Esterase Urine 1+ (Negative); Nitrite Urine Negative (Negative); Protein Urine 1+ (Negative); RBC Urine Automated 0-2 /hpf (0-2); Specific Gravity Urine 1.021 (1.000-1.030); Urobilinogen Urine Negative (Negative); pH Urine 5.5 (4.5-7.5)
[2024-04-05 21:28] LABS: Amphetamines+Metham, Urine Neg (Neg); Barbiturates, Urine Neg (Neg); Benzodiazepine, Urine Neg (Neg); Cocaine, Urine Neg (Neg); Fentanyl, Urine Neg (Neg); MDMA (Ecstacy), Urine Neg (Neg); Marijuana, Urine Neg (Neg); Methadone, Urine Pos (Neg); Opiate, Urine Neg (Neg); Phencyclidine, Urine Neg (Neg)
[2024-04-05] MEDS ORDERED: MAGNESIUM HYDROXIDE SUSP 30 ML UDC PO PRN (22:07)
[2024-04-05] MEDS ORDERED: POLYETHYLENE (MIRALAX) 17 GM PACK PO PRN (22:07)
[2024-04-05 22:51] LABS: Base Excess VBG -3.1 mEq/L; HCO3 VBG 27 mmol/L; Oxygen Saturation VBG 71.4 %; PCO2 VBG 72 mmHg (38-50); PO2 VBG 45 mmHg; pH VBG 7.18 (7.36-7.41)
[2024-04-05] MEDS: GABAPENTIN 600 MG TAB PO SCH (23:18)
[2024-04-05] MEDS: levETIRAcetam 500 MG TAB PO SCH (23:19)
[2024-04-05] MEDS: ENOXAPARIN INJ 30 MG/0.3 ML SYR SQ SCH (23:22)
[2024-04-05] MEDS: lamoTRIgine 100 MG TAB PO SCH (23:24)
[2024-04-05] MEDS: SODIUM CHLORIDE 0.9% 1,000 ML IV SCH (23:24)
[2024-04-05] MEDS: NICOTINE 21 MG/24 HR TDSY TD SCH (23:29)
[2024-04-06] MEDS: ONDANSETRON INJ 2 MG/ML 2 ML VIAL IV PRN (01:00)
[2024-04-06] MEDS ORDERED: ALBUT/IPRATROP 3MG/0.5MG NEB 3 ML VIAL NEB PRN (01:05)
[2024-04-06] MEDS: NALOXONE HCL 0.4 MG/1 ML VIAL/CARP ONE (01:06)
[2024-04-06] MEDS: NALOXONE HCL 0.4 MG/1 ML VIAL/CARP IV STA ×4 (01:24→13:35)
[2024-04-06] MEDS: PROMETHAZINE 12.5 MG/50.5 ML BAG IV STA (01:31)
[2024-04-06] MEDS: ALBUT/IPRATROP 3MG/0.5MG NEB 3 ML VIAL NEB STA (01:34)
[2024-04-06 03:11] LABS: Base Excess VBG -5.9 mEq/L; HCO3 VBG 24 mmol/L; Oxygen Saturation VBG 78.4 %; PCO2 VBG 63 mmHg (38-50); PO2 VBG 47 mmHg; pH VBG 7.18 (7.36-7.41)
[2024-04-06 03:42] LABS: Hematocrit (blood only) 38.7 % (37.0-47.0); Hemoglobin 12.2 g/dl (12.0-16.0); Mean Corpuscular Hemoglobin 31.2 pg (25.0-34.0); Mean Corpuscular Hgb Conc 31.5 g/dL (32.0-36.0); Mean Platelet Volume 10.9 fL (9.4-12.4); Platelet Count 89 K/uL (130-400); RDW Coefficient of Variation 14.8 % (11.5-14.5); RDW Standard Deviation 53.7 fL (36.4-46.3); Red Blood Count 3.91 M/uL (4.20-5.40); White Blood Count 4.76 K/ul (4.8-10.8)
[2024-04-06 03:49] LABS: Albumin Globulin Ratio 1.2 (0.9-2); Albumin Level 3.5 gm/dl (3.4-5.0); BUN Creatinine Ratio 25.8 (10-20); Bilirubin,Total 0.5 mg/dl (0.2-1.0); Calcium 9.7 mg/dl (8.6-10.3); Creatinine Clr Calc Pharmacy 26.1 ml/min; Magnesium 1.9 mg/dl (1.7-2.4); Thyroid Stimulating Hormone 2.69 uIu/ml (0.300-4.500); Total Protein 6.5 gm/dl (6.0-8.3)
[2024-04-06 03:56] LABS: Basophils # (auto) 0.02 K/uL (0.00-0.20); Basophils % (auto) 0.4 %; Eosinophils # (auto) 0.04 K/uL (0.00-0.50); Eosinophils % (auto) 0.8 %; Immature Granulocytes # (auto) 0.01 K/uL (0.01-0.20); Immature Granulocytes % (auto) 0.2 %; Lymphocytes # (auto) 1.59 K/uL (1.20-3.40); Lymphocytes % (auto) 33.4 %; Monocytes # (auto) 0.53 K/uL (0.11-0.59); Monocytes % (auto) 11.1 %; Neutrophils # (auto) 2.57 K/uL (1.40-6.50); Neutrophils % (auto) 54.1 %; Platelet Estimate Decreased (Normal); RBC Morphology Unremarkable
[2024-04-06] MEDS: 4.5GM X1 IV STA (04:04)
[2024-04-06 04:54] LABS: Base Excess VBG -4.8 mEq/L; HCO3 VBG 24 mmol/L; Oxygen Saturation VBG 89.4 %; PCO2 VBG 56 mmHg (38-50); PO2 VBG 55 mmHg; pH VBG 7.23 (7.36-7.41)
[2024-04-06] MEDS: methylPREDNISolone 125 MG/2 ML VIAL IV STA (06:35)
[2024-04-06] MEDS: ALBUT/IPRATROP 3MG/0.5MG NEB 3 ML VIAL NEB SCH (07:06)
--- NOTE | 2024-04-06 07:28 | Communication Note ---
Date of Service: April 06, 2024 Was notified that her repeat vbg was not getting better. Saw her arousable and oritened x3 vitals ok. d/w ICU and gave narcan 0.4mg and neb and placed on bipap. didnot improved so adjusted bipap settings to 18/5 and 22. and gave one more dose of narcan. repeat vbg at 4:42am showed ph 7.23 improved from prior. Patient arousable and oriented x3. Vitals were ok.resp rates seems ok. Diminished breath sounds but no obvious wheezing. hx of copd.Will continue current bipap settings. Place on nebs atc and prn. Will give a dose of iv solumedrol. Repeating vbg again now and if no improvement will consult pulmonary.Notifed am providers.
[2024-04-06 07:38] LABS: Base Excess VBG -6.1 mEq/L; HCO3 VBG 22 mmol/L; Oxygen Saturation VBG 89.9 %; PCO2 VBG 56 mmHg (38-50); PO2 VBG 57 mmHg; pH VBG 7.21 (7.36-7.41)
--- NOTE | 2024-04-06 08:12 | Hospitalist Progress Note ---
Date of Service April 06, 2024 Assessment & Plan (1) Hypoxia: (2) Respiratory acidosis: (3) NGOZI (acute kidney injury): (4) Elevated liver transaminase level: (5) Tobacco use: (6) Seizure disorder: (7) Hypercalcemia: Plan Patient is 58 year old female with PMH HTN, COPD, tobacco use, history drug abuse, on chronic methadone currently, history hepatitis B and C untreated, seizure disorder, fibromyalgia, depression presented to ER from [facility] 2/2 methadone overdose. Hypoxia Respiratory acidosis in setting of overdose of methadone Major Depressive disorder pt stopped methadone prior to and while at the [facility] today took a 145mg dose that resulted in hypoxia, somnolence, lethargy which prompted ER eval s/p IV narcan 0.2mg which improved sx VBG ph 7.2, pCO2 60 - protecting airway and no longer somnolent 04/06 repeat VBGs not improved overnight and so pt on Bipap, received narcan overnight x2, also started treatment with zosyn and solumedrol - director case management discussed w/ icu Currently laying in bed in NAD, on Bipap. She is arousable and can tell me she is in the hospital However VBG not improved - pulm. / icu aware On admission - Pt denies SI or HI, placed on suicide checks and prn one -to- one Psychiatry consulted will hold methadone for now, encourage pt to discontinue use, she wishes to taper down, will need to be re evaluated once acidosis resolves CXR: Mild patchy bibasilar and right upper lung opacities may represent a mild infectious or inflammatory pneumonitis. Pt is w/o cough, fever, leukocytosis on admission and so at that time abx not started Pt's resp. status worsened overnight, received solumdrol and zosyn , as above NGOZI baseline cr 1.0 Cr 1.6 on admission, lisinopril on hold, gentle IVF avoid nephrotoxic agents Current Cr 1.86 - Nephrology consulted Hx of Hep B and C un treated Elevated transaminitis no abd complaints repeated this AM - trending down consider US Hypercalcemia noted in past obtain PTH, vit d level, tsh level previously dx with primary hyperparathyroidism -pt unaware and never had further work up Nephrology consulted Tobacco abuse: encourage cessation, nicotine patch Seizure d/o: continue lamictal and keppra DVT ppx: SQ Lovenox FULL CODE PCP: Unassigned Dispo: admitted to PCU for close monitoring, currently in ED room A7 Admission and Anticipated Discharge Date Admission Date: April 05, 2024 Subjective Pt seen in follow up, admitted for hypoxia, lethargy after methadone , from [facility] Received narcan in the ED, and was supposedly better repeat VBGs not improved overnight and so pt on Bipap, received narcan overnight x2, also started treatment with zosyn and solumedrol - director case management discussed w/ icu Currently laying in bed in NAD, on Bipap. She is arousable and can tell me she is in the hospital However VBG not improved - pulm. / icu aware (discussed w/ director case management and he discussed w/ overnight icu provider), I also contacted Dr. Treviño - pulm. / day icu provider --> stat ABG ordered Review of Systems Review of Systems: All systems reviewed & are unremarkable except as noted in Subjective Physical Exam Physical Exam: General Appearance: Thin, frail, elderly, ill-appearing,on Bipap Head: normocephalic, Atraumatic Eyes: normal inspection, EOMI Neck: supple Respiratory/Chest: Decreased breath sounds, CTA, No accessory muscle use Cardiovascular: S1, S2, No murmur Abdomen/GI:Soft, Non tender, Bowel sounds present Extremities/Musculoskeletal:normal inspection, no edema Neurologic/Psych:AAOX3, grossly no focal neurological deficits Skin: warm, dry Results & Data Results & Data Vital Signs (Past 12 Hours) Vital Signs Pulse Pulse Resp BP BP Pulse Ox O2 Del Method 04/06/24 08:03 63 20 111/66 94 BiPAP 04/06/24 07:24 63 04/06/24 07:07 57 L 22 99 04/06/24 07:06 58 L 22 98 BiPAP 04/06/24 06:00 95/60 L 04/06/24 05:54 67 19 93 BiPAP 04/06/24 05:30 101/61 04/06/24 05:30 72 94 BiPAP 04/06/24 05:00 98/67 L 04/06/24 04:57 67 22 92 BiPAP 04/06/24 04:53 72 22 97 04/06/24 03:30 103/67 04/06/24 03:27 65 14 93 BiPAP 04/06/24 03:00 111/70 04/06/24 03:00 66 18 93 04/06/24 02:57 67 20 91 04/06/24 02:45 66 19 04/06/24 02:30 65 18 93 04/06/24 02:30 99/63 L 04/06/24 02:30 99/63 L 04/06/24 02:21 66 18 93 04/06/24 02:15 61 18 98 04/06/24 02:12 61 18 93 04/06/24 02:00 111/68 04/06/24 01:57 60 15 93 04/06/24 01:51 63 24 93 BiPAP 04/06/24 01:45 60 24 94 BiPAP 04/06/24 01:33 87 21 85 L 04/06/24 01:30 116/74 04/06/24 01:27 79 17 93 04/06/24 01:00 115/69 04/06/24 01:00 115/69 04/06/24 00:54 67 15 90 04/06/24 00:45 64 15 92 04/06/24 00:36 63 14 90 Nasal Cannula 04/06/24 00:30 116/75 04/06/24 00:30 116/75 04/06/24 00:27 63 19 90 04/06/24 00:24 68 12 92 04/06/24 00:24 Nasal Cannula 04/06/24 00:12 62 21 91 Nasal Cannula 04/06/24 00:00 122/72 04/06/24 00:00 60 12 91 04/05/24 23:51 56 L 17 96 Nasal Cannula 04/05/24 23:46 108/86 04/05/24 23:46 108/86 04/05/24 23:45 82 12 74 L Room Air 04/05/24 23:31 102/68 04/05/24 23:13 60 14 123/76 94 Nasal Cannula 04/05/24 22:31 60 14 117/77 92 Nasal Cannula 04/05/24 21:30 67 14 133/93 92 Nasal Cannula 04/05/24 20:32 70 O2 Flow Rate FiO2 04/06/24 08:03 04/06/24 07:24 04/06/24 07:07 30 04/06/24 07:06 30 04/06/24 06:00 04/06/24 05:54 04/06/24 05:30 04/06/24 05:30 04/06/24 05:00 04/06/24 04:57 04/06/24 04:53 30 04/06/24 03:30 04/06/24 03:27 04/06/24 03:00 04/06/24 03:00 04/06/24 02:57 04/06/24 02:45 04/06/24 02:30 04/06/24 02:30 04/06/24 02:30 04/06/24 02:21 04/06/24 02:15 30 04/06/24 02:12 04/06/24 02:00 04/06/24 01:57 04/06/24 01:51 04/06/24 01:45 04/06/24 01:33 04/06/24 01:30 04/06/24 01:27 04/06/24 01:00 04/06/24 01:00 04/06/24 00:54 04/06/24 00:45 04/06/24 00:36 3 04/06/24 00:30 04/06/24 00:30 04/06/24 00:27 04/06/24 00:24 04/06/24 00:24 3 04/06/24 00:12 2 04/06/24 00:00 04/06/24 00:00 04/05/24 23:51 2 04/05/24 23:46 04/05/24 23:46 04/05/24 23:45 04/05/24 23:31 04/05/24 23:13 2 04/05/24 22:31 2 04/05/24 21:30 2 04/05/24 20:32 Laboratory Results 04/06/24 04/06/24 04/06/24 Range/Units 07:27 04:42 02:43 WBC 4.76 L (4.8-10.8) K/ul RBC 3.91 L (4.20-5.40) M/uL Hgb 12.2 D (12.0-16.0) g/dl Hct 38.7 (37.0-47.0) % MCV 99.0 (80.0-100.0) fL MCH 31.2 (25.0-34.0) pg MCHC 31.5 L (32.0-36.0) g/dL RDW Std Deviation 53.7 H (36.4-46.3) fL RDW Coeff of Sol 14.8 H (11.5-14.5) % Plt Count 89 L (130-400) K/uL MPV 10.9 (9.4-12.4) fL Immature Gran % (Auto) 0.2 % Neut % (Auto) 54.1 % Lymph % (Auto) 33.4 % [place] % (Auto) 11.1 % Eos % (Auto) 0.8 % Baso % (Auto) 0.4 % Neut # (Auto) 2.57 (1.40-6.50) K/uL Lymph # (Auto) 1.59 (1.20-3.40) K/uL [place] # (Auto) 0.53 (0.11-0.59) K/uL Eos # (Auto) 0.04 (0.00-0.50) K/uL Baso # (Auto) 0.02 (0.00-0.20) K/uL Immature Gran # (Auto) 0.01 (0.01-0.20) K/uL Platelet Estimate Decreased L (Normal) RBC Morphology Unremarkable VBG pH 7.21 L 7.23 L 7.18 L (7.36-7.41) VBG pCO2 56 H 56 H 63 H (38-50) mmHg VBG pO2 57 55 47 mmHg VBG HCO3 22 24 24 mmol/L VBG O2 Saturation 89.9 89.4 78.4 % VBG Base Excess -6.1 -4.8 -5.9 mEq/L Sodium 141 (136-145) mmol/L Potassium 4.0 (3.5-5.1) mmol/L Chloride 113 H (98-107) mmol/L Carbon Dioxide 23 (21-32) mmol/L Anion Gap 5 (3-11) BUN 48 H (6-23) mg/dl Creatinine 1.86 H (0.6-1.2) mg/dl Est Cr Clr Drug Dosing 26.1 eGFR 31.01 BUN/Creatinine Ratio 25.8 H (10-20) Glucose 79 (70-99(Fasting)) mg/dl Calcium 9.7 (8.6-10.3) mg/dl Ionized Calcium 1.40 H (1.12-1.32) mmol/L Magnesium 1.9 (1.7-2.4) mg/dl Total Bilirubin 0.5 (0.2-1.0) mg/dl AST 79 H (13-39) U/L ALT 69 H (7-52) U/L Alkaline Phosphatase 159 H (34-104) U/L Troponin I High Sens (0-14) pg/ml Total Protein 6.5 D (6.0-8.3) gm/dl Albumin 3.5 (3.4-5.0) gm/dl Globulin 3.0 (2.5-4.0) gm/dl Albumin/Globulin Ratio 1.2 (0.9-2) 25-OH Vitamin D Total 12.5 L (30-100) ng/ml Procalcitonin (0-0.5) ng/ml TSH 2.690 (0.300-4.500) uIu/ml PTH Intact 241.6 H (12.0-88.0) pg/ml PTH Related Protein Pending Urine Color Urine Appearance (Clear) Urine pH (4.5-7.5) Ur Specific [place] (1.000-1.030) Urine Protein (Negative) Urine Glucose (UA) (Negative) Urine Ketones (Negative) Urine Blood (Negative) Urine Nitrite (Negative) Urine Bilirubin (Negative) Urine Urobilinogen (Negative) Ur Leukocyte Esterase (Negative) Urine WBC (Auto) (0-5) /hpf Urine RBC (Auto) (0-2) /hpf U Hyaline Cast (Auto) (0-2) /lpf U Epithel Cells (Auto) (0-2) /hpf Urine Bacteria (Auto) (None Seen) Granular Casts (None Prsent) /lpf Urine Opiates Screen (Neg) Ur Methadone, Qual (Neg) U Methadone Metabolites Ur Methadone Confirm Urine Fentanyl Screen (Neg) Acetaminophen (10-30) ug/ml Urine Barbiturates (Neg) Ur Phencyclidine (PCP) (Neg) U Amphetamin/Meth Scrn (Neg) MDMA (Ecstasy) Screen (Neg) U Benzodiazepines Scrn (Neg) Ur Cocaine Metabolite (Neg) U Marijuana (THC) Screen (Neg) Drug Screen Comment Ethyl Alcohol mg/dL (<10.0) mg/dl 04/05/24 04/05/24 04/05/24 Range/Units 22:33 19:29 16:35 WBC (4.8-10.8) K/ul RBC (4.20-5.40) M/uL Hgb (12.0-16.0) g/dl Hct (37.0-47.0) % MCV (80.0-100.0) fL MCH (25.0-34.0) pg MCHC (32.0-36.0) g/dL RDW Std Deviation (36.4-46.3) fL RDW Coeff of Sol (11.5-14.5) % Plt Count (130-400) K/uL MPV (9.4-12.4) fL Immature Gran % (Auto) % Neut % (Auto) % Lymph % (Auto) % [place] % (Auto) % Eos % (Auto) % Baso % (Auto) % Neut # (Auto) (1.40-6.50) K/uL Lymph # (Auto) (1.20-3.40) K/uL [place] # (Auto) (0.11-0.59) K/uL Eos # (Auto) (0.00-0.50) K/uL Baso # (Auto) (0.00-0.20) K/uL Immature Gran # (Auto) (0.01-0.20) K/uL Platelet Estimate (Normal) RBC Morphology VBG pH 7.18 L (7.36-7.41) VBG pCO2 72 H (38-50) mmHg VBG pO2 45 mmHg VBG HCO3 27 mmol/L VBG O2 Saturation 71.4 % VBG Base Excess -3.1 mEq/L Sodium (136-145) mmol/L Potassium (3.5-5.1) mmol/L Chloride (98-107) mmol/L Carbon Dioxide (21-32) mmol/L Anion Gap (3-11) BUN (6-23) mg/dl Creatinine (0.6-1.2) mg/dl Est Cr Clr Drug Dosing eGFR BUN/Creatinine Ratio (10-20) Glucose (70-99(Fasting)) mg/dl Calcium (8.6-10.3) mg/dl Ionized Calcium (1.12-1.32) mmol/L Magnesium (1.7-2.4) mg/dl Total Bilirubin (0.2-1.0) mg/dl AST (13-39) U/L ALT (7-52) U/L Alkaline Phosphatase (34-104) U/L Troponin I High Sens (0-14) pg/ml Total Protein (6.0-8.3) gm/dl Albumin (3.4-5.0) gm/dl Globulin (2.5-4.0) gm/dl Albumin/Globulin Ratio (0.9-2) 25-OH Vitamin D Total (30-100) ng/ml Procalcitonin 0.12 (0-0.5) ng/ml TSH (0.300-4.500) uIu/ml PTH Intact (12.0-88.0) pg/ml PTH Related Protein Urine Color Dark Yellow Urine Appearance Cloudy A (Clear) Urine pH 5.5 (4.5-7.5) Ur Specific [place] 1.021 (1.000-1.030) Urine Protein 1+ H (Negative) Urine Glucose (UA) Negative (Negative) Urine Ketones Trace H (Negative) Urine Blood Negative (Negative) Urine Nitrite Negative (Negative) Urine Bilirubin Negative (Negative) Urine Urobilinogen Negative (Negative) Ur Leukocyte Esterase 1+ H (Negative) Urine WBC (Auto) 11-20 H (0-5) /hpf Urine RBC (Auto) 0-2 (0-2) /hpf U Hyaline Cast (Auto) >20 H (0-2) /lpf U Epithel Cells (Auto) >20 H (0-2) /hpf Urine Bacteria (Auto) None Seen (None Seen) Granular Casts Present A (None Prsent) /lpf Urine Opiates Screen Neg (Neg) Ur Methadone, Qual Pos H (Neg) U Methadone Metabolites Pending Ur Methadone Confirm Pending Urine Fentanyl Screen Neg (Neg) Acetaminophen < 3 L (10-30) ug/ml Urine Barbiturates Neg (Neg) Ur Phencyclidine (PCP) Neg (Neg) U Amphetamin/Meth Scrn Neg (Neg) MDMA (Ecstasy) Screen Neg (Neg) U Benzodiazepines Scrn Neg (Neg) Ur Cocaine Metabolite Neg (Neg) U Marijuana (THC) Screen Neg (Neg) Drug Screen Comment Pending Ethyl Alcohol mg/dL < 10.0 (<10.0) mg/dl 04/05/24 04/05/24 Range/Units 15:44 14:35 WBC 8.46 (4.8-10.8) K/ul RBC 4.95 (4.20-5.40) M/uL Hgb 15.4 (12.0-16.0) g/dl Hct 48.0 H (37.0-47.0) % MCV 97.0 (80.0-100.0) fL MCH 31.1 (25.0-34.0) pg MCHC 32.1 (32.0-36.0) g/dL RDW Std Deviation 53.1 H (36.4-46.3) fL RDW Coeff of Sol 14.8 H (11.5-14.5) % Plt Count 166 (130-400) K/uL MPV 11.0 (9.4-12.4) fL Immature Gran % (Auto) 0.4 % Neut % (Auto) 55.1 % Lymph % (Auto) 33.0 % [place] % (Auto) 10.9 % Eos % (Auto) 0.2 % Baso % (Auto) 0.4 % Neut # (Auto) 4.67 (1.40-6.50) K/uL Lymph # (Auto) 2.79 (1.20-3.40) K/uL [place] # (Auto) 0.92 H (0.11-0.59) K/uL Eos # (Auto) 0.02 (0.00-0.50) K/uL Baso # (Auto) 0.03 (0.00-0.20) K/uL Immature Gran # (Auto) 0.03 (0.01-0.20) K/uL Platelet Estimate (Normal) RBC Morphology VBG pH 7.24 L (7.36-7.41) VBG pCO2 60 H (38-50) mmHg VBG pO2 32 mmHg VBG HCO3 26 mmol/L VBG O2 Saturation < 60.0 % VBG Base Excess -2.8 mEq/L Sodium 140 (136-145) mmol/L Potassium 4.0 (3.5-5.1) mmol/L Chloride 107 (98-107) mmol/L Carbon Dioxide 26 (21-32) mmol/L Anion Gap 7 (3-11) BUN 37 H (6-23) mg/dl Creatinine 1.64 H (0.6-1.2) mg/dl Est Cr Clr Drug Dosing Not Reportable eGFR 36.07 BUN/Creatinine Ratio 22.6 H (10-20) Glucose 106 H (70-99(Fasting)) mg/dl Calcium 11.2 H (8.6-10.3) mg/dl Ionized Calcium (1.12-1.32) mmol/L Magnesium (1.7-2.4) mg/dl Total Bilirubin 0.7 (0.2-1.0) mg/dl AST 102 H (13-39) U/L ALT 95 H (7-52) U/L Alkaline Phosphatase 208 H (34-104) U/L Troponin I High Sens 7.2 (0-14) pg/ml Total Protein 8.8 H (6.0-8.3) gm/dl Albumin 4.4 (3.4-5.0) gm/dl Globulin 4.4 H (2.5-4.0) gm/dl Albumin/Globulin Ratio 1.0 (0.9-2) 25-OH Vitamin D Total (30-100) ng/ml Procalcitonin (0-0.5) ng/ml TSH (0.300-4.500) uIu/ml PTH Intact (12.0-88.0) pg/ml PTH Related Protein Urine Color Urine Appearance (Clear) Urine pH (4.5-7.5) Ur Specific [place] (1.000-1.030) Urine Protein (Negative) Urine Glucose (UA) (Negative) Urine Ketones (Negative) Urine Blood (Negative) Urine Nitrite (Negative) Urine Bilirubin (Negative) Urine Urobilinogen (Negative) Ur Leukocyte Esterase (Negative) Urine WBC (Auto) (0-5) /hpf Urine RBC (Auto) (0-2) /hpf U Hyaline Cast (Auto) (0-2) /lpf U Epithel Cells (Auto) (0-2) /hpf Urine Bacteria (Auto) (None Seen) Granular Casts (None Prsent) /lpf Urine Opiates Screen (Neg) Ur Methadone, Qual (Neg) U Methadone Metabolites Ur Methadone Confirm Urine Fentanyl Screen (Neg) Acetaminophen (10-30) ug/ml Urine Barbiturates (Neg) Ur Phencyclidine (PCP) (Neg) U Amphetamin/Meth Scrn (Neg) MDMA (Ecstasy) Screen (Neg) U Benzodiazepines Scrn (Neg) Ur Cocaine Metabolite (Neg) U Marijuana (THC) Screen (Neg) Drug Screen Comment Ethyl Alcohol mg/dL (<10.0) mg/dl Medications Administered Current Inpatient Medications Acetaminophen (Acetaminophen 325 Mg Tab) 650 mg PO Q4H PRN PRN Reason: Pain or Fever Stop: 05/05/24 22:06 Albuterol (Albut/Ipratrop 3mg/0.5mg Neb 3 Ml Vial) 3 ml NEB Q4H PRN; Protocol PRN Reason: Shortness Of Breath Or Wheezing Stop: 05/06/24 01:04 Albuterol (Albut/Ipratrop 3mg/0.5mg Neb 3 Ml Vial) 3 ml NEB QIDR CASIE; Protocol Stop: 05/06/24 06:59 Last Admin: 04/06/24 07:06 Dose: 3 ml Amlodipine Besylate (Amlodipine Besylate 5 Mg Tab) 5 mg PO DAILY [facility] Stop: 05/06/24 08:59 Enoxaparin Sodium (Enoxaparin Inj 30 Mg/0.3 Ml Syr) 30 mg SQ HS [facility] Stop: 05/05/24 22:06 Last Admin: 04/05/24 23:22 Dose: 30 mg Gabapentin (Gabapentin 600 Mg Tab) 600 mg PO TID [facility] Stop: 05/05/24 22:06 Last Admin: 04/05/24 23:18 Dose: 600 mg Sodium Chloride (Nss) 1,000 mls @ 125 mls/hr IV .Q8H [facility] Stop: 04/06/24 22:06 Last Admin: 04/06/24 07:12 Dose: 125 mls/hr Piperacillin Sod/Tazobactam Sod (Zosyn) 4.5 gm in 100 mls @ 25 mls/hr IV Q8H [facility]; Protocol Stop: 04/13/24 09:59 [facility] ([facility] 25 Mg Tab) [facility] [place] Stop: 05/06/24 08:59 Lamotrigine (Lamotrigine 100 Mg Tab) 100 mg PO HS [facility]; Protocol Stop: 05/05/24 22:06 Last Admin: 04/05/24 23:24 Dose: 100 mg Levetiracetam (Levetiracetam 500 Mg Tab) 500 mg PO BID [facility] Stop: 05/05/24 22:06 Last Admin: 04/05/24 23:19 Dose: 500 mg Magnesium Hydroxide (Magnesium Hydroxide Susp 30 Ml Udc) 30 ml PO Q12H PRN PRN Reason: Constipation Stop: 05/05/24 22:06 Miscellaneous (Remove Nicoderm Patch) 1 each N/A DAILY@0859 [facility] Stop: 05/06/24 08:58 Nicotine (Nicotine 21 Mg/24 Hr Tdsy) 1 patch TD QAM [facility] Stop: 05/05/24 22:06 Last Admin: 04/05/24 23:29 Dose: 1 patch Ondansetron HCl (Ondansetron Inj 2 Mg/Ml 2 Ml Vial) 4 mg IV Q6H PRN PRN Reason: Nausea Stop: 05/05/24 22:06 Last Admin: 04/06/24 01:00 Dose: 4 mg Polyethylene Glycol (Polyethylene (Miralax) 17 Gm Pack) 17 gm PO DAILY PRN PRN Reason: Constipation Stop: 05/05/24 22:06
[2024-04-06] MEDS: lamoTRIgine 25 MG TAB PO SCH (08:27)
[2024-04-06] MEDS: amLODIPine BESYLATE 5 MG TAB PO SCH (08:28)
--- NOTE | 2024-04-06 08:54 | Nephrology Consultation ---
Date of Consultation April 06, 2024 Assessment & Plan (1) Hypercalcemia: mild recurrent hypercalcemia resolved w/ supportive care / rehydration. had NS until at least 11 AM > stopped now; calcium may well rise in wake of this given HPTH hx. plts from 166> 89 >> would monitor and reevaluate ar if unexpected MS changes -consider 24 hr urine as IP or OP; would not start in this critically ill pt at this time -f/u pending PTHrp (send out) -continue IV fluids if/when feasible but not a clinicaly priority currently -may benefit from OP neph evaluation of HPTH > evaluation of 24 hr urine, nuke med PTH scan as needed Care coordinated w/ Dr Treviño re renal function calcium, f/u labs; appreciate c/s; we are in agreeement (2) NGOZI (acute kidney injury): stage 1 nonoliguric NGOZI, worsening for ? reason. no e/o fluid overload or (other than calcium on admission) abnormal serum chemistries. both keppra and lamictal can cause NGOZI. abd imaging shows no obstruction. UA c/w ATN. >check bmp at least bid for now given worsening -strict I/O pls -at this time no urgent dialysis need but still in ICU/critically ill and w/ acid/base abnormalities so time will tell History of Present Illness Reason for Consultation: hypercalcemia Requesting Physician: Dr Pickard Attending Physician: Luisito Ang MD History of Present Illness 58 y/o F whom I'm asked to see for hypercalcemia was admitted yesterday afternoon for management of a methadone overdose and found to have hypercalcemia and NGOZI. PMH includes HTN, COPD, tobacco use 1 PPD, history of heroin abuse 2009 and ever since on chronic methadone, history hepatitis B and C untreated, seizure disorder, fibromyalgia, and depression. She was admitted here in October for choledocholithiasis w/ transfer to [facility] for possible ERC; calcium elevated at that visit as below and she also presented at that time with depression/SI, bradycardia (30-60s HR; transferred before w/u) and possible methadone overdose at that time as well. Denies h/o stones (but small stone on imaging). Two weeks back, the patient stopped taking her methadone; the facility then gave her a full / 146 mg dose of methadone after being w/o it for 14 days. She developed SOB and somnolence. These sx improved somewhat after receiving narcan in the ED. However her respiratory acidosis persisted, requiring 2 more narcan doses. Admitted to ICU w/ bipap. Her presenting calcium was 11.2, improved to 9.7 this AM (serum albumin 3.5); presenting creatinine 1.6 (baseline November 2023 1.1) up to 1.9 this AM. Her transaminases were at about 100 on presentation, down trending this am. 25OH D level is 13; PTH 242. Notably, her calcium was 11.8 in October w/ PTH 101. She has had consistent respiratory acidosis and was on bipap at the time of my evaluation, limiting her ability to give ROS. Denies current musculoskeltal pain or current dyspnea; denies abd pain or constipation or new/worrisome voiding sx or flank pain; endorses poor po for several days prior to admission. She endorses what sounds like 2 fragility fractures of her R humerus in the past but again d/t bipap unable to give details. Allergies Allergy/AdvReac Type Severity Reaction Status Date / Time No Known Allergies Allergy Verified 11/02/23 21:35 Home Medications Medication Instructions Recorded Confirmed Type gabapentin 600 mg tablet 600 mg PO TID 11/02/23 04/05/24 History lamotrigine 100 mg tablet 100 mg PO HS 11/02/23 04/05/24 History lamotrigine 25 mg tablet 75 mg PO QAM 11/02/23 04/05/24 History levetiracetam 500 mg tablet 500 mg PO BID 11/02/23 04/05/24 History lisinopril 40 mg tablet 40 mg PO DAILY 11/02/23 04/05/24 History methadone 146 mg PO DIRECTED 11/02/23 04/05/24 History amlodipine 5 mg tablet 5 mg PO DAILY 11/03/23 04/05/24 History Patient History Medical History Hepatitis h/o hep B & C both untreated History of drug abuse COPD (chronic obstructive pulmonary disease) Tobacco use Seizure disorder Hypertension Depression CVA (cerebral vascular accident) Hypertension Surgical History Hx of tubal ligation Family History Other Diabetes Heart disease Social History Smoking Status: Former smoker Tobacco Type: Cigarettes and E-cigarettes / Vaping Do You Dip or Chew Tobacco: No; Hx Alcohol Use: No Hx Substance Use: Yes (methadone, prescribed) Prescribed Medications: Opiates Last Used Substance: Days (ago) Preferred Language: Sami Communication Ability: Effective Paint Formulator Required: No Beliefs That Will Affect Care: None Current Living Situation: Alone Feels Safe at Home: Yes Assistive Devices: Denture - Upper, Denture - Lower and Glasses Review of Systems 2 Review of Systems: All systems reviewed & are unremarkable except as noted in HPI & below (limited by bipap) Physical Exam 2 Constitutional: well developed and + thin (very small framed); no acute distress Eyes: EOM intact bilaterally ENMT: Mouth: + dry oral mucous membranes Respiratory: normal respiratory effort (on bipap); no respiratory distress Auscultation: + diminished lung sounds Cardiovascular: RRR, no murmur, no edema Gastrointestinal (Abdomen): Inspection/Auscultation: normal bowel sounds P ercussion/Palpation: abdomen soft; abdomen nontender Musculoskeletal: Extremities: strength 5/5 throughout Skin: no rashes, warm and dry Neurologic: fregoso, fluent speech muffled by bipap, no tremor Results & Data Vital Signs (Past 12 Hours) Vital Signs Pulse Pulse Resp BP BP Pulse Ox O2 Del Method 04/06/24 08:03 63 20 111/66 94 BiPAP 04/06/24 07:24 63 04/06/24 07:07 57 L 22 99 04/06/24 07:06 58 L 22 98 BiPAP 04/06/24 06:00 95/60 L 04/06/24 05:54 67 19 93 BiPAP 04/06/24 05:30 101/61 04/06/24 05:30 72 94 BiPAP 04/06/24 05:00 98/67 L 04/06/24 04:57 67 22 92 BiPAP 04/06/24 04:53 72 22 97 04/06/24 03:30 103/67 04/06/24 03:27 65 14 93 BiPAP 04/06/24 03:00 111/70 04/06/24 03:00 66 18 93 04/06/24 02:57 67 20 91 04/06/24 02:45 66 19 04/06/24 02:30 65 18 93 04/06/24 02:30 99/63 L 04/06/24 02:30 99/63 L 04/06/24 02:21 66 18 93 04/06/24 02:15 61 18 98 04/06/24 02:12 61 18 93 04/06/24 02:00 111/68 04/06/24 01:57 60 15 93 04/06/24 01:51 63 24 93 BiPAP 04/06/24 01:45 60 24 94 BiPAP 04/06/24 01:33 87 21 85 L 04/06/24 01:30 116/74 04/06/24 01:27 79 17 93 04/06/24 01:00 115/69 04/06/24 01:00 115/69 04/06/24 00:54 67 15 90 04/06/24 00:45 64 15 92 04/06/24 00:36 63 14 90 Nasal Cannula 04/06/24 00:30 116/75 04/06/24 00:30 116/75 04/06/24 00:27 63 19 90 04/06/24 00:24 68 12 92 04/06/24 00:24 Nasal Cannula 04/06/24 00:12 62 21 91 Nasal Cannula 04/06/24 00:00 122/72 04/06/24 00:00 60 12 91 04/05/24 23:51 56 L 17 96 Nasal Cannula 04/05/24 23:46 108/86 04/05/24 23:46 108/86 04/05/24 23:45 82 12 74 L Room Air 04/05/24 23:31 102/68 04/05/24 23:13 60 14 123/76 94 Nasal Cannula 04/05/24 22:31 60 14 117/77 92 Nasal Cannula 04/05/24 21:30 67 14 133/93 92 Nasal Cannula O2 Flow Rate FiO2 04/06/24 08:03 04/06/24 07:24 04/06/24 07:07 30 04/06/24 07:06 30 04/06/24 06:00 04/06/24 05:54 04/06/24 05:30 04/06/24 05:30 04/06/24 05:00 04/06/24 04:57 04/06/24 04:53 30 04/06/24 03:30 04/06/24 03:27 04/06/24 03:00 04/06/24 03:00 04/06/24 02:57 04/06/24 02:45 04/06/24 02:30 04/06/24 02:30 04/06/24 02:30 04/06/24 02:21 04/06/24 02:15 30 04/06/24 02:12 04/06/24 02:00 04/06/24 01:57 04/06/24 01:51 04/06/24 01:45 04/06/24 01:33 04/06/24 01:30 04/06/24 01:27 04/06/24 01:00 04/06/24 01:00 04/06/24 00:54 04/06/24 00:45 04/06/24 00:36 3 04/06/24 00:30 04/06/24 00:30 04/06/24 00:27 04/06/24 00:24 04/06/24 00:24 3 04/06/24 00:12 2 04/06/24 00:00 04/06/24 00:00 04/05/24 23:51 2 04/05/24 23:46 04/05/24 23:46 04/05/24 23:45 04/05/24 23:31 04/05/24 23:13 2 04/05/24 22:31 2 04/05/24 21:30 2 Laboratory Results 04/06/24 02:43 04/06/24 02:43 UA > 20 epi; granular casts +; cloudy dark yellow 1021 w/ trace ketones 1+ LE, 11-20 WBC, no bacteria Tox screen + methadone; else neg including for acetamin Diagnostic Findings CXR (image reviewed; agree w/ report) 1. Limited exam secondary to positioning. 2. Cardiomegaly without pulmonary edema. 3. Mild patchy bibasilar and right upper lung opacities may represent a mild infectious or inflammatory pneumonitis. CT non con chest 1. Bilateral lower lobe, right middle lobe and lingular linear densities in groundglass opacities. Atelectasis is favored. No definite consolidation to suggest pneumonia or aspiration pneumonitis. 2. Mild cardiomegaly. 3. No thoracic lymphadenopathy. CT a/p non con 1. No hydronephrosis. No definite ureteral calculi. 3 mm nonobstructing left renal calculus. 2. Cholelithiasis with mild gallbladder distention. If right upper quadrant pain, ultrasound is recommended. 3. No change in biliary ductal dilatation since ultrasound of November 02, 2023. This remains indeterminate and correlation with liver function tests is recommended. 4. Mild rectal wall thickening with adjacent stranding. This favors a mild nonspecific proctitis. 5. Moderate amount of stool within the colon. 6. No evidence for a bowel obstruction.
[2024-04-06] MEDS: PIPERACILLIN/TAZOBACTAM 4.5 GM/100 ML BAG IV SCH (09:22)
[2024-04-06 09:25] LABS: iSTAT Arterial Blood Gas HCO3 22 meg/L (19-24); iSTAT Arterial Blood Gas pCO2 57 mmHg (35-46); iSTAT Arterial Blood Gas pH 7.19 (7.35-7.45); iSTAT Arterial Blood Gas pO2 75 mmHg (80-95); iSTAT Carbon Dioxide 24 mmol/L (24-31); iSTAT Hematocrit 36 % (37-47); iSTAT Hemoglobin 12.2 g/dl (12.0-16.0); iSTAT Potassium 4.4 mmol/L (3.3-5.0); iSTAT Sample Type Arterial; iSTAT Sodium 143 mmol/L (135-144)
[2024-04-06 10:04] LABS: iSTAT Arterial Blood Gas HCO3 24 meg/L (19-24); iSTAT Arterial Blood Gas pCO2 63 mmHg (35-46); iSTAT Arterial Blood Gas pH 7.19 (7.35-7.45); iSTAT Arterial Blood Gas pO2 59 mmHg (80-95); iSTAT Carbon Dioxide 26 mmol/L (24-31); iSTAT Hematocrit 35 % (37-47); iSTAT Hemoglobin 11.9 g/dl (12.0-16.0); iSTAT Sodium 142 mmol/L (135-144)
--- NOTE | 2024-04-06 10:30 | CT Scan Report ---
CT OF THE CHEST WITHOUT IV CONTRAST CLINICAL HISTORY: aspiration pna? COMPARISON STUDY: Chest radiograph April 05, 2024. CT DOSE: 1296.83 mGy.cm TECHNIQUE: Axial images of the chest were obtained without IV contrast. Images were reviewed in the axial, sagittal, and coronal planes. IV contrast was not administered for this examination. Automat ed exposure control was utilized for the study. A dose lowering technique was utilized adhering to t he principles of ALARA. FINDINGS: No enlarged axillary, mediastinal or hilar lymph nodes are present. The heart is mildly en larged. There is no pericardial effusion. No pneumothorax or pleural effusion is present. The central airways are patent. No consolidation is identified. Bilateral lower lobe linear densities and ground glass opacities are present. There are also lingular and right middle lobe linear densities. No acute fractures within the bony thorax are present. Old T4 and T7 compression fractures are incidentally n oted. Please note that the abdomen and pelvis CT will be reported separately. IMPRESSION: 1. Bilateral lower lobe, right middle lobe and lingular linear densities in groundglass opacities. At electasis is favored. No definite consolidation to suggest pneumonia or aspiration pneumonitis. 2. Mild cardiomegaly. 3. No thoracic lymphadenopathy. ACT 112: Negative or not required by law. Electronically signed by: Carlos Alberto Haddad M.D. 04/06/2024 10:28 AM
--- NOTE | 2024-04-06 10:38 | CT Scan Report ---
CT head/brain wo con CLINICAL HISTORY: 58 years-old Female with ams. Acutely altered mental status TECHNIQUE: Multiple axial CT images of the head were obtained without contrast. A dose lowering tech nique was utilized adhering to the principles of ALARA. COMPARISON: None. FINDINGS: No acute intracranial hemorrhage, midline shift, intracranial mass, hydrocephalus, territorial ischem ia or abnormal extra-axial collection. Chronic bilateral posterior cerebral artery infarcts with ence phalomalacia. Involutional changes with moderate white matter hypodensities of the cervical hemispher es favoring chronic microvascular ischemic disease. The calvarium is intact. The paranasal sinuses, mastoid air cells, and middle ear cavities are clear . IMPRESSION: 1. No acute intracranial abnormality identified. 2. Chronic posterior cerebral artery infarcts. 3. Nonspecific white matter hypodensities, likely representing chronic microvascular ischemic diseas e. ACT 112: Negative or not required by law. The above report was generated using voice recognition software. It may contain grammatical, syntax o r spelling errors. Electronically signed by: Lucio Ochoa M.D. 04/06/2024 10:36 AM
--- NOTE | 2024-04-06 10:48 | CT Scan Report ---
CT OF THE ABDOMEN AND PELVIS WITHOUT CONTRAST CLINICAL HISTORY: Renal failure. COMPARISON STUDY: Right upper quadrant ultrasound November 02, 2023. TECHNIQUE: Axial images of the abdomen and pelvis were obtained without IV contrast. Images were revi ewed in the axial, sagittal, and coronal planes. Automated exposure control was utilized for the yong dy. A dose lowering technique was utilized adhering to the principles of ALARA. FINDINGS: Please note that the chest CT will be reported separately. No pneumatosis, free air or port al venous gas is present. Moderate biliary ductal dilatation is similar to ultrasound of November 02, 2023 . There are numerous gallstones within the gallbladder. The gallbladder is mildly distended. There ma y be trace pericholecystic fluid. Mild pancreatic ductal dilatation is also unchanged since prior ult rasound. There is a 3 mm left lower pole renal calculus. A left pelvic calcification favors a phlebol ith although the course of the left ureter is difficult to follow. There is no hydronephrosis. No hep atic lesions are identified on unenhanced exam. There are partially calcified upper abdominal lymph n odes. There is no evidence for a bowel obstruction. Mild rectal wall thickening with mild perirectal stranding is present. There are no extraluminal gas. The bladder is distended. Avascular necrosis of the right femoral head is incidentally noted. No acute fractures within the visualized skeletal struc tures are present. There is a moderate amount stool within the colon. IMPRESSION: 1. No hydronephrosis. No definite ureteral calculi. 3 mm nonobstructing left renal calculus. 2. Cholelithiasis with mild gallbladder distention. If right upper quadrant pain, ultrasound is recom mended. 3. No change in biliary ductal dilatation since ultrasound of November 02, 2023. This remains indeterminat e and correlation with liver function tests is recommended. 4. Mild rectal wall thickening with adjacent stranding. This favors a mild nonspecific proctitis. 5. Moderate amount of stool within the colon. 6. No evidence for a bowel obstruction. ACT 112: Negative or not required by law. Electronically signed by: Carlos Alberto Haddad M.D. 04/06/2024 10:46 AM
--- NOTE | 2024-04-06 11:09 | Psychiatric Consultation ---
Date of Consultation April 06, 2024 Impression / Recommendations Impression 58 y/o F h/o depression presents from [facility] with accidental methadone OD after 1+ week break from medication and was restarted at facility when admitted for depression. Psychiatry consulted for evaluation given recent psychiatry admission. Current medical problems include hypercapnia, NGOZI with Cr of 1.86, UTI, elevated PTH. Labs reviewed: CBC, CMP unremarkable, Vit D low at 12.5, PTH elevated at 241.6, UA+LE+, urine wbc+, UDS+methadone, elevated transaminases. Patient initially presented to [facility] for worsening depressive episode with no initial or current suicidal ideation. She is able to contract for safety. She is future oriented and requests to return to [facility][1] upon medical stabilization. No acute safety concerns presented. Antidepressant medication can be resumed when she returns to facility. Overall, I spent a total of 60 minutes with this case including review of chart records, nursing report, review of lab work, direct evaluation of the patient at bedside, counseling the patient, discussion of the patient with the hospitalist provider, discussion with the psychiatric liaison during clinical rounds, and documentation in the electronic health record. (1) MDD (major depressive disorder), recurrent episode: (2) Elevated liver transaminase level: (3) NGOZI (acute kidney injury): (4) Respiratory acidosis: (5) Narcotic overdose: Encounter type: initial encounter Injury intent: accidental or unintentional Qualified Code(s): T40.601A - Poisoning by unspecified narcotics, accidental (unintentional), initial encounter Plan -No indication for bedside sitter -Return to [facility] upon discharge -Correct Vit D deficiency Psych History Identifying Data 58 y/o F presents from [facility] with accidental methadone OD after 1+ week break from medication and was restarted at facility when admitted for depression. Psychiatry consulted for evaluation given recent psychiatry admi ssion. Chief Complaint Accidental Methadone OD History of Present Illness Chart review: Taking 145mg methadone. Abruptly stoped prior to gi. Admitted to [facility][1] on 04/03. On interview the patient is seen in the ICU on a BIPAP. Reports recent psych admission for depression. Denies SI on initial psychiatry admission and denies current SI. Reports worsennign depressive episode with sleep dysfunction, appetite loss, low mood, loss of pleasure in activities, worse self esteem. H/o prior episodes. Was not on antidepressants prior to psych admission. Was started on Lexapro while admitted, unclear what dose. She reports poor fluid intake while in the [facility][1]. Is open to returning to [facility][1] upon medical stabilization. No further concerns reported. Allergies Allergy/AdvReac Type Severity Reaction Status Date / Time No Known Allergies Allergy Verified 11/02/23 21:35 Home Medications Medication Instructions Recorded Confirmed Type gabapentin 600 mg tablet 600 mg PO TID 11/02/23 04/05/24 History lamotrigine 100 mg tablet 100 mg PO HS 11/02/23 04/05/24 History lamotrigine 25 mg tablet 75 mg PO QAM 11/02/23 04/05/24 History levetiracetam 500 mg tablet 500 mg PO BID 11/02/23 04/05/24 History lisinopril 40 mg tablet 40 mg PO DAILY 11/02/23 04/05/24 History methadone 146 mg PO DIRECTED 11/02/23 04/05/24 History amlodipine 5 mg tablet 5 mg PO DAILY 11/03/23 04/05/24 History Patient History Medical History Hepatitis h/o hep B & C both untreated History of drug abuse COPD (chronic obstructive pulmonary disease) Tobacco use Seizure disorder Hypertension Depression CVA (cerebral vascular accident) Hypertension Surgical History Hx of tubal ligation Family History Other Diabetes Heart disease Social History Smoking Status: Former smoker Tobacco Type: Cigarettes and E-cigarettes / Vaping Do You Dip or Chew Tobacco: No; Hx Alcohol Use: No Hx Substance Use: Yes (methadone, prescribed) Prescribed Medications: Opiates Last Used Substance: Days (ago) Preferred Language: Swedish Communication Ability: Effective Manager Action Required: No Beliefs That Will Affect Care: None Current Living Situation: Alone Feels Safe at Home: Yes Assistive Devices: Denture - Upper, Denture - Lower and Glasses Physical Exam Vital Signs (Past 24 Hours): Last Vital Signs Temp 36.8 C 04/06/24 10:23 Pulse 68 04/06/24 10:27 Resp 24 04/06/24 10:27 BP 127/76 04/06/24 10:23 Pulse Ox 100 04/06/24 10:27 O2 Del Method BiPAP 04/06/24 10:23 O2 Flow Rate 3 04/06/24 00:36 FiO2 30 04/06/24 10:27 Results & Data (PSY) Medications Administered Albuterol (Albut/Ipratrop 3mg/0.5mg Neb 3 Ml Vial) 3 ml NEB QIDR CASIE; Protocol Stop: 05/06/24 06:59 Last Admin: 04/06/24 07:06 Dose: 3 ml Documented By: ISAIAH Amlodipine Besylate (Amlodipine Besylate 5 Mg Tab) 5 mg PO DAILY [facility] Stop: 05/06/24 08:59 Last Admin: 04/06/24 08:30 Dose: Not Given Documented By: SHERI Enoxaparin Sodium (Enoxaparin Inj 30 Mg/0.3 Ml Syr) 30 mg SQ HS [facility] Stop: 05/05/24 22:06 Last Admin: 04/05/24 23:22 Dose: 30 mg Documented By: SHAMEKA Gabapentin (Gabapentin 600 Mg Tab) 600 mg PO TID [facility] Stop: 05/05/24 22:06 Last Admin: 04/06/24 08:28 Dose: 600 mg Documented By: Admin: 04/05/24 23:18 Dose: 600 mg Documented By: SHAMEKA Sodium Chloride (Nss) 1,000 mls @ 125 mls/hr IV .Q8H [facility] Stop: 04/06/24 22:06 Last Admin: 04/06/24 07:12 Dose: 125 mls/hr Documented By: Infusion: 04/06/24 07:12 Dose: Infused Documented By: Admin: 04/05/24 23:24 Dose: 125 mls/hr Documented By: SHAMEKA Piperacillin Sod/Tazobactam Sod (Zosyn) 4.5 gm in 100 mls @ 25 mls/hr IV Q8H [facility]; Protocol Stop: 04/13/24 09:59 Last Admin: 04/06/24 09:22 Dose: 25 mls/hr Documented By: SHERI Lamotrigine (Lamotrigine 25 Mg Tab) 75 mg PO QAM [facility]; Protocol Stop: 05/06/24 08:59 Last Admin: 04/06/24 08:27 Dose: 75 mg Documented By: SHERI Lamotrigine (Lamotrigine 100 Mg Tab) 100 mg PO HS [facility]; Protocol Stop: 05/05/24 22:06 Last Admin: 04/05/24 23:24 Dose: 100 mg Documented By: SHAMEKA Levetiracetam (Levetiracetam 500 Mg Tab) 500 mg PO BID [facility] Stop: 05/05/24 22:06 Last Admin: 04/06/24 08:27 Dose: 500 mg Documented By: Admin: 04/05/24 23:19 Dose: 500 mg Documented By: SHAMEKA Miscellaneous (Remove Nicoderm Patch) 1 each N/A DAILY@[id number] [facility] Stop: 05/06/24 08:58 Last Admin: 04/06/24 08:28 Dose: 1 each Documented By: SHERI Nicotine (Nicotine 21 Mg/24 Hr Tdsy) 1 patch TD [facility] Stop: 05/05/24 22:06 Last Admin: 04/06/24 08:27 Dose: 1 patch Documented By: Admin: 04/05/24 23:29 Dose: 1 patch Documented By: SHAMEKA Ondansetron HCl (Ondansetron Inj 2 Mg/Ml 2 Ml Vial) 4 mg IV Q6H PRN PRN Reason: Nausea Stop: 05/05/24 22:06 Last Admin: 04/06/24 01:00 Dose: 4 mg Documented By: ZOLTAN Coding [place] [address] IN/OBS CONSULT LVL 4,60M Patient Type Established History Detailed Exam Detailed Diagnoses MDD (major depressive disorder), recurrent episode F33.9 Elevated liver transaminase level R74.01 NGZOI (acute kidney injury) N17.9 Respiratory acidosis E87.29 Narcotic overdose T40.601A Encounter type: initial encounter Injury intent: accidental or unintentional
[2024-04-06] MEDS: FORMOTEROL 20 MCG/2 ML VIAL NEB SCH (11:14)
[2024-04-06] MEDS: BUDESONIDE 0.5 MG/2 ML VIAL (PULMICORT) NEB SCH (11:14)
[2024-04-06] MEDS ORDERED: methylPREDNISolone 125 MG/2 ML VIAL IV SCH (11:15)
--- NOTE | 2024-04-06 11:16 | Critical Care Consultation ---
Date of Consultation April 06, 2024 Assessment & Plan (1) Acute exacerbation of COPD with asthma: (2) Narcotic overdose: (3) Respiratory acidosis: (4) NGOZI (acute kidney injury): (5) Thrombocytopenia: Plan 58-year-old female with a history of major depressive disorder who recently was discharged from an inpatient psychiatric facility on methadone therapy presenting to the hospital due to somnolence and acute hypercapnic respiratory failure. Neurologic: Will limit sedating medications at this time given hypercapnic respiratory failure. Narcan x 2 has been minimally effective. Will hold off Narcan infusion at this time given history of seizure disorder. Continue BiPAP and will proceed with intubation mechanical ventilation if respiratory status worsens and patient unable to protect her airway. Currently she does appear to be protecting her airway. CT head with chronic posterior cerebral infarct and nonspecific white matter hypodensities. Questionable history of seizure disorder. Monitor neurological status closely. Pulmonary: Patient with evidence of a COPD exacerbation possibly due to use of multiple sedating medications. Will start IV methylprednisone, ICS and LABA nebulized therapy and DuoNebs as needed. Patient with also possible signs of aspiration pneumonitis on CT chest. Will start empiric antibiotics. Check respiratory viral panel and MRSA screen. Continue Zosyn empirically. Trend ABGs at this time. Will hold off on intubation currently and she is alert and awake and able to answer questions appropriately. Continue BiPAP therapy and consider repeat ABG later this afternoon. Cardiovascular: EKG reviewed with findings of sinus rhythm with short NJ. Troponin negative. Hold lisinopril at this time due to NGOZI. Gastrointestinal: N.p.o. for the time being. Renal: CT abdomen pelvis without evidence of hydronephrosis. 3 mm nonobstructing left renal calculus seen. Patient with NGOZI. Monitor urine output closely due to Cohen. Will discontinue IV fluids for the time being. Repeat BMP and magnesium now. Infectious disease: Presumptive community-acquired pneumonia possibly secondary to aspiration. Continue Zosyn for the time being. Can de-escalate to Unasyn depending on her clinical course over the next 24 to 48 hours. Check MRSA screen and respiratory viral panel. Hematologic: No significant issues at present aside for mild thrombocytopenia of unclear origin. Possibly secondary to sepsis. Will repeat CBC to trend platelet count. If platelet count trending down, will discontinue Lovenox DVT prophylaxis. Endocrine: TSH unremarkable. Maintain euglycemia. VTE prophylaxis: Lovenox CODE STATUS: Full code Family at bedside: None available at bedside Disposition: ICU for today and reevaluate tomorrow. I have personally spent 49 minutes of critical care time in the direct management of this patient. This is a life/limb threatening event. This includes time spent evaluating patient, direct bedside care, chart review, placing orders, interpretation of diagnostic studies, discussion with consultants, patient, and family members, as well as other required patient management activities. This time is exclusive of all separately billable procedures, and teaching time and separate from and in addition to any other critical care service time. Thank you for allowing us to participate in the care of this patient. History of Present Illness Reason for Consultation: Hypercapnic respiratory failure Attending Physician: Luisito Ang MD History of Present Illness 58-year-old female with a history of major depressive disorder, polysubstance abuse on methadone, tobacco abuse and COPD who presented to the hospital due to shortness of breath and somnolence. She was given Narcan x 2 and was found to be hypercapnic on VBG. ICU services were consulted for the potential use of a Narcan infusion or intubation or mechanical ventilation. Upon arrival to the ICU she is awake and responding appropriately and well on BiPAP. She is using her remote to control her television. She is adamant that she does not want to be intubated at present unless absolutely necessary. She was also able to have a discussion with psychiatry. She denies any significant chest pain or shortness of breath at present. This morning, I was contacted by the hospitalist service, Dr. Pickard, regarding possible transfer to the ICU for Narcan inf 1 pack-a-day smoker for the past 35 years. Allergies Allergy/AdvReac Type Severity Reaction Status Date / Time No Known Allergies Allergy Verified 11/02/23 21:35 Home Medications Medication Instructions Recorded Confirmed Type gabapentin 600 mg tablet 600 mg PO TID 11/02/23 04/05/24 History lamotrigine 100 mg tablet 100 mg PO HS 11/02/23 04/05/24 History lamotrigine 25 mg tablet 75 mg PO QAM 11/02/23 04/05/24 History levetiracetam 500 mg tablet 500 mg PO BID 11/02/23 04/05/24 History lisinopril 40 mg tablet 40 mg PO DAILY 11/02/23 04/05/24 History methadone 146 mg PO DIRECTED 11/02/23 04/05/24 History amlodipine 5 mg tablet 5 mg PO DAILY 11/03/23 04/05/24 History Patient History Medical History History of drug abuse COPD (chronic obstructive pulmonary disease) Tobacco use Seizure disorder Hypertension Depression CVA (cerebral vascular accident) Hypertension Surgical History Hx of tubal ligation Family History Other Diabetes Heart disease Social History Smoking Status: Former smoker Tobacco Type: Cigarettes and E-cigarettes / Vaping Do You Dip or Chew Tobacco: No; Hx Alcohol Use: No Hx Substance Use: Yes (methadone, prescribed) Prescribed Medications: Opiates Last Used Substance: Days (ago) Preferred Language: Spanish Communication Ability: Effective Yard Supervisor Required: No Beliefs That Will Affect Care: None Current Living Situation: Alone Feels Safe at Home: Yes Assistive Devices: Denture - Upper, Denture - Lower and Glasses Review of Systems Review of Systems: All systems reviewed & are unremarkable except as noted in HPI & below Physical Exam Physical Exam: Constitutional: Patient appears to be of their stated age. Cachectic appearing female in no apparent distress. BiPAP mask in place. Eyes: Pupils are equal round and reactive to light. Conjunctivae are normal. Anicteric sclera. Ears nose, mouth and throat: BiPAP in place. No peripheral cyanosis. Neck: Trachea is midline. Visual inspection is normal. Respiratory: Clear to auscultation bilaterally. No use of accessory muscles. No significant clubbing noted. Cardiovascular: Regular rate and rhythm. No murmurs. No edema. Gastrointestinal: Normal bowel sounds, soft, nontender and nondistended. No hepatosplenomegaly noted. Musculoskeletal: No cyanosis. Patient is able to move all extremities. Strength is 5 out of 5 in the upper and lower extremities. Skin: No rashes, warm dry and intact. Neurologic: No obvious focal neurological deficits seen. Psychiatric: Alert and oriented x3 with a euthymic affect. Results & Data Results & Data Vital Signs (Past 12 Hours) Vital Signs Temp Pulse Pulse Resp BP BP Pulse Ox 04/06/24 10:27 68 24 100 04/06/24 10:23 36.8 C 58 L 127/76 100 04/06/24 09:46 54 L 107/68 98 04/06/24 08:03 63 20 111/66 94 04/06/24 07:24 63 04/06/24 07:07 57 L 22 99 04/06/24 07:06 58 L 22 98 04/06/24 06:00 95/60 L 04/06/24 05:54 67 19 93 04/06/24 05:30 101/61 04/06/24 05:30 72 94 04/06/24 05:00 98/67 L 04/06/24 04:57 67 22 92 04/06/24 04:53 72 22 97 04/06/24 03:30 103/67 04/06/24 03:27 65 14 93 04/06/24 03:00 111/70 04/06/24 03:00 66 18 93 04/06/24 02:57 67 20 91 04/06/24 02:45 66 19 04/06/24 02:30 65 18 93 04/06/24 02:30 99/63 L 04/06/24 02:30 99/63 L 04/06/24 02:21 66 18 93 04/06/24 02:15 61 18 98 04/06/24 02:12 61 18 93 04/06/24 02:00 111/68 04/06/24 01:57 60 15 93 04/06/24 01:51 63 24 93 04/06/24 01:45 60 24 94 04/06/24 01:33 87 21 85 L 04/06/24 01:30 116/74 04/06/24 01:27 79 17 93 04/06/24 01:00 115/69 04/06/24 01:00 115/69 04/06/24 00:54 67 15 90 04/06/24 00:45 64 15 92 04/06/24 00:36 63 14 90 04/06/24 00:30 116/75 04/06/24 00:30 116/75 04/06/24 00:27 63 19 90 04/06/24 00:24 68 12 92 04/06/24 00:24 04/06/24 00:12 62 21 91 04/06/24 00:00 122/72 04/06/24 00:00 60 12 91 04/05/24 23:51 56 L 17 96 04/05/24 23:46 108/86 04/05/24 23:46 108/86 04/05/24 23:45 82 12 74 L 04/05/24 23:31 102/68 O2 Del Method O2 Flow Rate FiO2 04/06/24 10:27 30 04/06/24 10:23 BiPAP 30 04/06/24 09:46 BiPAP 04/06/24 08:03 BiPAP 04/06/24 07:24 04/06/24 07:07 30 04/06/24 07:06 BiPAP 30 04/06/24 06:00 04/06/24 05:54 BiPAP 04/06/24 05:30 04/06/24 05:30 BiPAP 04/06/24 05:00 04/06/24 04:57 BiPAP 04/06/24 04:53 30 04/06/24 03:30 04/06/24 03:27 BiPAP 04/06/24 03:00 04/06/24 03:00 04/06/24 02:57 04/06/24 02:45 04/06/24 02:30 04/06/24 02:30 04/06/24 02:30 04/06/24 02:21 04/06/24 02:15 30 04/06/24 02:12 04/06/24 02:00 04/06/24 01:57 04/06/24 01:51 BiPAP 04/06/24 01:45 BiPAP 04/06/24 01:33 04/06/24 01:30 04/06/24 01:27 04/06/24 01:00 04/06/24 01:00 04/06/24 00:54 04/06/24 00:45 04/06/24 00:36 Nasal Cannula 3 04/06/24 00:30 04/06/24 00:30 04/06/24 00:27 04/06/24 00:24 04/06/24 00:24 Nasal Cannula 3 04/06/24 00:12 Nasal Cannula 2 04/06/24 00:00 04/06/24 00:00 04/05/24 23:51 Nasal Cannula 2 04/05/24 23:46 04/05/24 23:46 04/05/24 23:45 Room Air 04/05/24 23:31 Coding Level of Care Code 11847 CRITICAL CARE 1ST 30-74M Diagnoses Acute exacerbation of COPD with asthma J44.1 Narcotic overdose T40.601A Encounter type: initial encounter Injury intent: accidental or unintentional Respiratory acidosis E87.29 NGOZI (acute kidney injury) N17.9 Thrombocytopenia D69.6 (2) Narcotic overdose Encounter type: initial encounter Injury intent: accidental or unintentional Qualified Code(s): T40.601A - Poisoning by unspecified narcotics, accidental (unintentional), initial encounter
[2024-04-06 12:08] LABS: BUN Creatinine Ratio 25.8 (10-20); Calcium 9.8 mg/dl (8.6-10.3); Creatinine Clr Calc Pharmacy 30.5 ml/min; Potassium 4.6 mmol/L (3.5-5.1)
[2024-04-06 12:22] LABS: Basophils # (auto) 0.01 K/uL (0.00-0.20); Basophils % (auto) 0.5 %; Eosinophils # (auto) 0.01 K/uL (0.00-0.50); Eosinophils % (auto) 0.5 %; Hematocrit (blood only) 36.9 % (37.0-47.0); Hemoglobin 11.9 g/dl (12.0-16.0); Immature Granulocytes # (auto) 0.02 K/uL (0.01-0.20); Immature Granulocytes % (auto) 0.9 %; Lymphocytes # (auto) 0.55 K/uL (1.20-3.40); Lymphocytes % (auto) 24.9 %; Mean Corpuscular Hemoglobin 32.1 pg (25.0-34.0); Mean Corpuscular Hgb Conc 32.2 g/dL (32.0-36.0); Mean Corpuscular Volume 99.5 fL (80.0-100.0); Mean Platelet Volume 11.3 fL (9.4-12.4); Monocytes # (auto) 0.09 K/uL (0.11-0.59); Monocytes % (auto) 4.1 %; Neutrophils # (auto) 1.53 K/uL (1.40-6.50); Neutrophils % (auto) 69.1 %; Platelet Count 78 K/uL (130-400); RDW Coefficient of Variation 14.9 % (11.5-14.5); RDW Standard Deviation 54.3 fL (36.4-46.3); Red Blood Count 3.71 M/uL (4.20-5.40); White Blood Count 2.21 K/ul (4.8-10.8)
[2024-04-06 13:13] LABS: Adenovirus PCR Not Detected (NotDetected); Bordetella parapertussis PCR Not Detected (NotDetected); Bordetella pertussis PCR Not Detected (NotDetected); Chlamydia pneumoniae PCR Not Detected (NotDetected); Coronavirus 229E PCR Not Detected (NotDetected); Coronavirus CoV-2 (COVID19)PCR Not Detected (NotDetected); Coronavirus HKU1 PCR Not Detected (NotDetected); Coronavirus NL63 PCR Not Detected (NotDetected); Coronavirus OC43PCR Not Detected (NotDetected); Human Metapneumovirus PCR Not Detected (NotDetected); Influenza A PCR Not Detected (NotDetected); Influenza B PCR Not Detected (NotDetected); Mycoplasma pneumoniae PCR Not Detected (NotDetected); Parainfluenza Virus 1 PCR Not Detected (NotDetected); Parainfluenza Virus 2 PCR Not Detected (NotDetected); Parainfluenza Virus 3 PCR Not Detected (NotDetected); Parainfluenza Virus 4 PCR Not Detected (NotDetected); Respiratory Syncytial VirusPCR Not Detected (NotDetected); Rhinovirus/Enterovirus PCR Not Detected (NotDetected)
[2024-04-06 13:33] LABS: iSTAT Allen Test Pass; iSTAT Art Bld Gas pCO2 Correct 58 mmHg (35-46); iSTAT Art Bld Gas pH Corrected 7.203 (7.35-7.45); iSTAT Arterial Blood Gas HCO3 23 meg/L (19-24); iSTAT Arterial Blood Gas pCO2 60 mmHg (35-46); iSTAT Arterial Blood Gas pH 7.19 (7.35-7.45); iSTAT Arterial Blood Gas pO2 90 mmHg (80-95); iSTAT Arterial Blood Gas pO2 C 86; iSTAT Carbon Dioxide 25 mmol/L (24-31); iSTAT FiO2 30 %; iSTAT Hematocrit 36 % (37-47); iSTAT Hemoglobin 12.2 g/dl (12.0-16.0); iSTAT Potassium 4.8 mmol/L (3.3-5.0); iSTAT Sample Type Arterial; iSTAT Site L Radial; iSTAT Sodium 143 mmol/L (135-144); iSTAT SpO2 100
[2024-04-06] MEDS ORDERED: STAT IV Infusion **Titration per Protocol STA (13:37)
[2024-04-06] MEDS: PLASMA-LYTE A 1,000 ML IV SCH (14:23)
[2024-04-06] MEDS: NALOXONE HCL 5 MG in SODIUM CHLORIDE 0.9% 87.5 ML IV SCH (14:24)
[2024-04-06] MEDS: methylPREDNISolone 40 MG in SYRINGE 0 ML IV SCH (14:54)
[2024-04-07] MEDS: ACETAMINOPHEN 325 MG TAB PO PRN (04:33)
[2024-04-07 05:30] LABS: Hematocrit (blood only) 35.5 % (37.0-47.0); Hemoglobin 11.2 g/dl (12.0-16.0); Mean Corpuscular Hemoglobin 31.2 pg (25.0-34.0); Mean Corpuscular Hgb Conc 31.5 g/dL (32.0-36.0); Mean Corpuscular Volume 98.9 fL (80.0-100.0); Mean Platelet Volume 11.6 fL (9.4-12.4); Platelet Count 77 K/uL (130-400); RDW Coefficient of Variation 14.5 % (11.5-14.5); RDW Standard Deviation 52.9 fL (36.4-46.3); Red Blood Count 3.59 M/uL (4.20-5.40); White Blood Count 2.14 K/ul (4.8-10.8)
[2024-04-07 05:45] LABS: Creatinine Clr Calc Pharmacy 38.8 ml/min; Magnesium 1.9 mg/dl (1.7-2.4); Phosphorus 2.2 mg/dl (2.5-4.9); Potassium 4.8 mmol/L (3.5-5.1)
--- NOTE | 2024-04-07 07:55 | Hospitalist Progress Note ---
Date of Service April 07, 2024 Assessment & Plan (1) Hypoxia: (2) Respiratory acidosis: (3) NGOZI (acute kidney injury): (4) Elevated liver transaminase level: (5) Tobacco use: (6) Seizure disorder: (7) Hypercalcemia: Plan Patient is 58 year old female with PMH HTN, COPD, tobacco use, history drug abuse, on chronic methadone currently, history hepatitis B and C untreated, seizure disorder, fibromyalgia, depression presented to ER from [facility] 2/2 methadone overdose. Acute Hypoxic, hypercapnic respiratory failure Respiratory acidosis in setting of overdose of methadone Major Depressive disorder pt stopped methadone prior to and while at the [facility] today took a 145mg dose that resulted in hypoxia, somnolence, lethargy which prompted ER eval s/p IV narcan 0.2mg which improved sx VBG ph 7.2, pCO2 60 - protecting airway and no longer somnolent on admission 04/06 repeat VBGs not improved overnight and so pt on Bipap, received narcan overnight x2, also started treatment with zosyn and solumedrol - [employer] salesperson discussed w/ icu Currently laying in bed in NAD, on Bipap. She is arousable and can tell me she is in the hospital However VBG not improved - pulm. / icu aware -> stat ABG obtained and pt was transferred from ED to ICU 04/07 Pt in ICU on narcan drip, stopped at 10 pm last night. Also, off bipap, currently on NC. She is awake, alert, answers appropriately. Overall feels well. Plan to transfer out of ICU. Depression On admission - Pt denies SI or HI, placed on suicide checks and prn one -to- one Psychiatry consulted will hold methadone for now, encourage pt to discontinue use, she wishes to taper down, will need to be re evaluated once acidosis resolves Per psychiatry - Antidepressant medication can be resumed when she returns to facility. Plan to Return to [facility] upon discharge Possible CAP, possible aspiration CXR: Mild patchy bibasilar and right upper lung opacities may represent a mild infectious or inflammatory pneumonitis. Pt is w/o cough, fever, leukocytosis on admission and so at that time abx not started Pt's resp. status worsened overnight, received solumdrol and zosyn , as above Now abx stopped by icu/pulm provider, will cont. to monitor NGOZI baseline cr 1.0 Cr 1.6 on admission, lisinopril on hold, gentle IVF avoid nephrotoxic agents Following day Cr 1.86 - Nephrology consulted Current Cr improved 1.25 Hypercalcemia noted in past obtain PTH, vit d level, tsh level previously dx with primary hyperparathyroidism -pt unaware and never had further work up Nephrology consulted - Started her on David trial which should continue at discharge. Discharge Ernesto on chart. Possible primary hyperparathyroidism, which we will work up as an outpatient. NEPHRO D/C RECS -d/c on calcitriol above -[facility] d/c appt 40 min w/in a month w/ any physician provider in [facility] CKD clinic for w/u of HPTH w/in a month of d/c -labs for neph visit to be ordered by neph nurse >> urorisk (24 hr urine), PTH, 25 OHD, bmp, ionized calcium, cbc, phos, ACR, UACM -will f/u pending PTHrp (send out) as OP -continue IV fluids as feasible Hx of Hep B and C un treated Elevated transaminitis no abd complaints repeated - trending down consider US Tobacco abuse: encourage cessation, nicotine patch Seizure d/o: continue lamictal and keppra DVT ppx: SQ Lovenox FULL CODE PCP: Unassigned Dispo: ICU -> PCU Admission and Anticipated Discharge Date Admission Date: April 05, 2024 Subjective Pt seen in follow up, admitted for hypoxia, lethargy after methadone , from [facility] Received narcan in the ED, and was supposedly better repeat VBGs not improved overnight and so pt on Bipap, received narcan overnight x2, also started treatment with zosyn and solumedrol - automotive parts salesperson discussed w/ icu Pt eventually transferred to ICU from ED, was on narcan drip. Drip stopped at 10 pm. Currently laying in bed in NAD, off Bipap, on NC She is awake, alert, able to answer appropriately. Denies any fever, chills, chest pain, shortness of breath, abd. pain, n/v. Says she has a good appetite. Review of Systems Review of Systems: All systems reviewed & are unremarkable except as noted in Subjective Physical Exam Physical Exam: General Appearance: Thin, frail, elderly, ill-appearing,on Bipap Head: normocephalic, Atraumatic Eyes: normal inspection, EOMI Neck: supple Respiratory/Chest: Decreased breath sounds, CTA, No accessory muscle use Cardiovascular: S1, S2, No murmur Abdomen/GI:Soft, Non tender, Bowel sounds present Extremities/Musculoskeletal:normal inspection, no edema Neurologic/Psych:AAOX3, grossly no focal neurological deficits Skin: warm, dry Results & Data Results & Data Vital Signs (Past 12 Hours) Vital Signs Pulse Pulse Resp BP Pulse Ox O2 Del Method O2 Del Method 04/07/24 06:03 63 0 L 100/53 L 92 04/07/24 05:45 69 0 L 91 04/07/24 05:06 57 L 20 101/59 L 96 04/07/24 04:57 62 15 97 04/07/24 04:31 106/60 04/07/24 04:30 64 3 L 99 04/07/24 04:06 63 19 92/47 L 97 04/07/24 03:39 65 16 96 04/07/24 03:00 106/62 04/07/24 03:00 65 16 95 04/07/24 02:30 83 17 95 04/07/24 02:00 56 L 16 114/64 94 04/07/24 01:42 75 0 L 88 L 04/07/24 01:03 59 L 18 110/61 97 04/07/24 00:57 81 0 L 94 04/07/24 00:46 71 04/07/24 00:39 61 0 L 97 04/07/24 00:03 61 0 L 97/61 L 98 04/07/24 00:00 Nasal Cannula 04/06/24 23:57 61 0 L 97 04/06/24 23:30 65 0 L 97 04/06/24 23:00 135/83 04/06/24 23:00 74 0 L 135/83 97 04/06/24 22:33 71 0 L 96 04/06/24 22:00 54 L 0 L 111/73 97 04/06/24 21:45 56 L 0 L 98 04/06/24 21:02 57 L 0 L 129/77 96 04/06/24 20:38 65 9 L 96 04/06/24 20:05 51 L 16 131/80 99 04/06/24 20:03 54 L 20 99 Nasal Cannula 04/06/24 19:56 55 L 17 98 O2 Flow Rate O2 Flow Rate 04/07/24 06:03 04/07/24 05:45 04/07/24 05:06 04/07/24 04:57 04/07/24 04:31 04/07/24 04:30 04/07/24 04:06 04/07/24 03:39 04/07/24 03:00 04/07/24 03:00 04/07/24 02:30 04/07/24 02:00 04/07/24 01:42 04/07/24 01:03 04/07/24 00:57 04/07/24 00:46 04/07/24 00:39 04/07/24 00:03 04/07/24 00:00 2 04/06/24 23:57 04/06/24 23:30 04/06/24 23:00 04/06/24 23:00 04/06/24 22:33 04/06/24 22:00 04/06/24 21:45 04/06/24 21:02 04/06/24 20:38 04/06/24 20:05 04/06/24 20:03 3 04/06/24 19:56 Laboratory Results 04/07/24 04/06/24 04/06/24 Range/Units 05:09 13:16 12:10 WBC 2.14 L (4.8-10.8) K/ul RBC 3.59 L (4.20-5.40) M/uL Hgb 11.2 L (12.0-16.0) g/dl POC Hgb 12.2 (12.0-16.0) g/dl Hct 35.5 L (37.0-47.0) % POC Hct 36 L (37-47) % MCV 98.9 (80.0-100.0) fL MCH 31.2 (25.0-34.0) pg MCHC 31.5 L (32.0-36.0) g/dL RDW Std Deviation 52.9 H (36.4-46.3) fL RDW Coeff of Sol 14.5 (11.5-14.5) % Plt Count 77 L (130-400) K/uL MPV 11.6 (9.4-12.4) fL Immature Gran % (Auto) % Neut % (Auto) % Lymph % (Auto) % Gilmer % (Auto) % Eos % (Auto) % Baso % (Auto) % Neut # (Auto) (1.40-6.50) K/uL Lymph # (Auto) (1.20-3.40) K/uL Gilmer # (Auto) (0.11-0.59) K/uL Eos # (Auto) (0.00-0.50) K/uL Baso # (Auto) (0.00-0.20) K/uL Immature Gran # (Auto) (0.01-0.20) K/uL Specimen Type Arterial Sample Site L Radial POC pH 7.19 L* (7.35-7.45) POC pCO2 60 H (35-46) mmHg POC pO2 90 (80-95) mmHg POC HCO3 23 (19-24) byron/L POC Total CO2 25 (24-31) mmol/L POC Base Excess -5.0 (-9-1.8) byron/L O2 Sat Pulse Oximetry 100 ABG pH (Temp Correct) 7.203 L (7.35-7.45) ABG pCO2 (Temp Corrct 58 H (35-46) mmHg POC ABG pO2 at Pt Temp 86 POC ABG O2 Sat 94.0 (90-95) % Paulie Test Pass O2 Delivery Device BIPAP POC FiO2 30 % EPAP 5 IPAP 23 POC Sodium 143 (135-144) mmol/L Sodium 140 (136-145) mmol/L POC Potassium 4.8 (3.3-5.0) mmol/L Potassium 4.8 (3.5-5.1) mmol/L Chloride 113 H (98-107) mmol/L Carbon Dioxide 23 (21-32) mmol/L Anion Gap 4 (3-11) BUN 40 H (6-23) mg/dl Creatinine 1.25 H D (0.6-1.2) mg/dl Est Cr Clr Drug Dosing 38.8 ml/min eGFR 49.96 BUN/Creatinine Ratio 32.0 H (10-20) Glucose 173 H (70-99(Fasting)) mg/dl Calcium 10.0 (8.6-10.3) mg/dl Phosphorus 2.2 L (2.5-4.9) mg/dl Magnesium 1.9 (1.7-2.4) mg/dl Nasal Screen MRSA (PCR) Negative (Negative) Adenovirus (PCR) Not Detected (NotDetected) B. pertussis DNA (PCR) Not Detected (NotDetected) B.parapertussis DNA PCR Not Detected (NotDetected) C. pneumoniae DNA (PCR) Not Detected (NotDetected) Coronavirus OC43 (PCR) Not Detected (NotDetected) Coronavirus HKU1 (PCR) Not Detected (NotDetected) Coronavirus 229E (PCR) Not Detected (NotDetected) SARS-CoV-2 (PCR) Not Detected (NotDetected) Coronavirus NL63 (PCR) Not Detected (NotDetected) Human Metapneumovir PCR Not Detected (NotDetected) Influenza Type A (PCR) Not Detected (NotDetected) Influenza Type B (PCR) Not Detected (NotDetected) M. pneumoniae (PCR) Not Detected (NotDetected) Parainfluenza 1 (PCR) Not Detected (NotDetected) Parainfluenza 2 (PCR) Not Detected (NotDetected) Parainfluenza 3 (PCR) Not Detected (NotDetected) Parainfluenza 4 (PCR) Not Detected (NotDetected) RSV (PCR) Not Detected (NotDetected) Entero/Rhino (PCR) Not Detected (NotDetected) 04/06/24 04/06/24 04/06/24 Range/Units 11:54 11:37 09:04 WBC 2.21 L (4.8-10.8) K/ul RBC 3.71 L (4.20-5.40) M/uL Hgb 11.9 L (12.0-16.0) g/dl POC Hgb 12.2 (12.0-16.0) g/dl Hct 36.9 L (37.0-47.0) % POC Hct 36 L (37-47) % MCV 99.5 (80.0-100.0) fL MCH 32.1 (25.0-34.0) pg MCHC 32.2 (32.0-36.0) g/dL RDW Std Deviation 54.3 H (36.4-46.3) fL RDW Coeff of Sol 14.9 H (11.5-14.5) % Plt Count 78 L (130-400) K/uL MPV 11.3 (9.4-12.4) fL Immature Gran % (Auto) 0.9 % Neut % (Auto) 69.1 % Lymph % (Auto) 24.9 % Gilmer % (Auto) 4.1 % Eos % (Auto) 0.5 % Baso % (Auto) 0.5 % Neut # (Auto) 1.53 (1.40-6.50) K/uL Lymph # (Auto) 0.55 L (1.20-3.40) K/uL Gilmer # (Auto) 0.09 L (0.11-0.59) K/uL Eos # (Auto) 0.01 (0.00-0.50) K/uL Baso # (Auto) 0.01 (0.00-0.20) K/uL Immature Gran # (Auto) 0.02 (0.01-0.20) K/uL Specimen Type Arterial Sample Site POC pH 7.19 L* (7.35-7.45) POC pCO2 57 H (35-46) mmHg POC pO2 75 L (80-95) mmHg POC HCO3 22 (19-24) byron/L POC Total CO2 24 (24-31) mmol/L POC Base Excess -6.0 (-9-1.8) byron/L O2 Sat Pulse Oximetry ABG pH (Temp Correct) (7.35-7.45) ABG pCO2 (Temp Corrct (35-46) mmHg POC ABG pO2 at Pt Temp POC ABG O2 Sat 91.0 (90-95) % Paulie Test O2 Delivery Device POC FiO2 % EPAP IPAP POC Sodium 143 (135-144) mmol/L Sodium 141 (136-145) mmol/L POC Potassium 4.4 (3.3-5.0) mmol/L Potassium 4.6 (3.5-5.1) mmol/L Chloride 115 H (98-107) mmol/L Carbon Dioxide 23 (21-32) mmol/L Anion Gap 3 (3-11) BUN 41 H (6-23) mg/dl Creatinine 1.59 H (0.6-1.2) mg/dl Est Cr Clr Drug Dosing 30.5 ml/min eGFR 37.43 BUN/Creatinine Ratio 25.8 H (10-20) Glucose 106 H (70-99(Fasting)) mg/dl Calcium 9.8 (8.6-10.3) mg/dl Phosphorus (2.5-4.9) mg/dl Magnesium 2.0 (1.7-2.4) mg/dl Nasal Screen MRSA (PCR) (Negative) Adenovirus (PCR) (NotDetected) B. pertussis DNA (PCR) (NotDetected) B.parapertussis DNA PCR (NotDetected) C. pneumoniae DNA (PCR) (NotDetected) Coronavirus OC43 (PCR) (NotDetected) Coronavirus HKU1 (PCR) (NotDetected) Coronavirus 229E (PCR) (NotDetected) SARS-CoV-2 (PCR) (NotDetected) Coronavirus NL63 (PCR) (NotDetected) Human Metapneumovir PCR (NotDetected) Influenza Type A (PCR) (NotDetected) Influenza Type B (PCR) (NotDetected) M. pneumoniae (PCR) (NotDetected) Parainfluenza 1 (PCR) (NotDetected) Parainfluenza 2 (PCR) (NotDetected) Parainfluenza 3 (PCR) (NotDetected) Parainfluenza 4 (PCR) (NotDetected) RSV (PCR) (NotDetected) Entero/Rhino (PCR) (NotDetected) 04/06/24 Range/Units 03:52 WBC (4.8-10.8) K/ul RBC (4.20-5.40) M/uL Hgb (12.0-16.0) g/dl POC Hgb 11.9 L (12.0-16.0) g/dl Hct (37.0-47.0) % POC Hct 35 L (37-47) % MCV (80.0-100.0) fL MCH (25.0-34.0) pg MCHC (32.0-36.0) g/dL RDW Std Deviation (36.4-46.3) fL RDW Coeff of Sol (11.5-14.5) % Plt Count (130-400) K/uL MPV (9.4-12.4) fL Immature Gran % (Auto) % Neut % (Auto) % Lymph % (Auto) % Gilmer % (Auto) % Eos % (Auto) % Baso % (Auto) % Neut # (Auto) (1.40-6.50) K/uL Lymph # (Auto) (1.20-3.40) K/uL Gilmer # (Auto) (0.11-0.59) K/uL Eos # (Auto) (0.00-0.50) K/uL Baso # (Auto) (0.00-0.20) K/uL Immature Gran # (Auto) (0.01-0.20) K/uL Specimen Type Sample Site POC pH 7.19 L* (7.35-7.45) POC pCO2 63 H (35-46) mmHg POC pO2 59 L (80-95) mmHg POC HCO3 24 (19-24) byron/L POC Total CO2 26 (24-31) mmol/L POC Base Excess -4.0 (-9-1.8) byron/L O2 Sat Pulse Oximetry ABG pH (Temp Correct) (7.35-7.45) ABG pCO2 (Temp Corrct (35-46) mmHg POC ABG pO2 at Pt Temp POC ABG O2 Sat 82.0 L (90-95) % Paulie Test O2 Delivery Device POC FiO2 % EPAP IPAP POC Sodium 142 (135-144) mmol/L Sodium (136-145) mmol/L POC Potassium 4.0 (3.3-5.0) mmol/L Potassium (3.5-5.1) mmol/L Chloride (98-107) mmol/L Carbon Dioxide (21-32) mmol/L Anion Gap (3-11) BUN (6-23) mg/dl Creatinine (0.6-1.2) mg/dl Est Cr Clr Drug Dosing ml/min eGFR BUN/Creatinine Ratio (10-20) Glucose (70-99(Fasting)) mg/dl Calcium (8.6-10.3) mg/dl Phosphorus (2.5-4.9) mg/dl Magnesium (1.7-2.4) mg/dl Nasal Screen MRSA (PCR) (Negative) Adenovirus (PCR) (NotDetected) B. pertussis DNA (PCR) (NotDetected) B.parapertussis DNA PCR (NotDetected) C. pneumoniae DNA (PCR) (NotDetected) Coronavirus OC43 (PCR) (NotDetected) Coronavirus HKU1 (PCR) (NotDetected) Coronavirus 229E (PCR) (NotDetected) SARS-CoV-2 (PCR) (NotDetected) Coronavirus NL63 (PCR) (NotDetected) Human Metapneumovir PCR (NotDetected) Influenza Type A (PCR) (NotDetected) Influenza Type B (PCR) (NotDetected) M. pneumoniae (PCR) (NotDetected) Parainfluenza 1 (PCR) (NotDetected) Parainfluenza 2 (PCR) (NotDetected) Parainfluenza 3 (PCR) (NotDetected) Parainfluenza 4 (PCR) (NotDetected) RSV (PCR) (NotDetected) Entero/Rhino (PCR) (NotDetected) Medications Administered Current Inpatient Medications Acetaminophen (Acetaminophen 325 Mg Tab) 650 mg PO Q4H PRN PRN Reason: Pain or Fever Stop: 05/05/24 22:06 Last Admin: 04/07/24 04:33 Dose: 650 mg Albuterol (Albut/Ipratrop 3mg/0.5mg Neb 3 Ml Vial) 3 ml NEB Q4H PRN; Protocol PRN Reason: Shortness Of Breath Or Wheezing Stop: 05/06/24 01:04 Albuterol (Albut/Ipratrop 3mg/0.5mg Neb 3 Ml Vial) 3 ml NEB QIDR CASIE; Protocol Stop: 05/06/24 06:59 Last Admin: 04/06/24 20:03 Dose: Not Given Amlodipine Besylate (Amlodipine Besylate 5 Mg Tab) 5 mg PO DAILY [facility] Stop: 05/06/24 08:59 Last Admin: 04/06/24 08:30 Dose: Not Given Budesonide (Budesonide 0.5 Mg/2 Ml Vial (Pulmicort)) 0.5 mg NEB BIDR [facility] Stop: 05/06/24 10:31 Last Admin: 04/06/24 20:02 Dose: 0.5 mg Enoxaparin Sodium (Enoxaparin Inj 30 Mg/0.3 Ml Syr) 30 mg SQ HS [facility] Stop: 05/05/24 22:06 Last Admin: 04/06/24 20:35 Dose: 30 mg Formoterol Fumarate (Formoterol 20 Mcg/2 Ml Vial) 20 mcg NEB BIDR [facility] Stop: 05/06/24 10:31 Last Admin: 04/06/24 20:02 Dose: 20 mcg Gabapentin (Gabapentin 600 Mg Tab) 600 mg PO TID [facility] Stop: 05/05/24 22:06 Last Admin: 04/06/24 08:28 Dose: 600 mg Piperacillin Sod/Tazobactam Sod (Zosyn) 4.5 gm in 100 mls @ 25 mls/hr IV Q8H [facility]; Protocol Stop: 04/13/24 09:59 Last Admin: 04/07/24 02:26 Dose: 25 mls/hr Naloxone HCl 5 mg/ Sodium (Chloride) 100 mls @ 0 mls/hr IV .Q0M [facility]; Protocol Stop: 05/06/24 13:44 Last Titration: 04/06/24 21:03 Dose: 0 mg/hr, 0 mls/hr Parenteral Electrolytes (Plasma-Lyte A Ph 7.4) 1,000 mls @ 80 mls/hr IV .[id number] [facility] Stop: 04/07/24 13:59 Last Admin: 04/07/24 02:30 Dose: 80 mls/hr Methylprednisolone 40 mg/ (Syringe) 0.64 mls @ 1.5 mls/min IV BID [facility] Stop: 05/06/24 14:29 Last Admin: 04/06/24 20:35 Dose: 1.5 mls/min Lamotrigine (Lamotrigine 25 Mg Tab) 75 mg PO QAM [facility]; Protocol Stop: 05/06/24 08:59 Last Admin: 04/06/24 08:27 Dose: 75 mg Lamotrigine (Lamotrigine 100 Mg Tab) 100 mg PO [facility]; Protocol Stop: 05/05/24 22:06 Last Admin: 04/06/24 20:36 Dose: 100 mg Levetiracetam (Levetiracetam 500 Mg Tab) 500 mg PO BID [facility] Stop: 05/05/24 22:06 Last Admin: 04/06/24 20:35 Dose: 500 mg Magnesium Hydroxide (Magnesium Hydroxide Susp 30 Ml Udc) 30 ml PO Q12H PRN PRN Reason: Constipation Stop: 05/05/24 22:06 Miscellaneous (Remove Nicoderm Patch) 1 each N/A DAILY@0859 [facility] Stop: 05/06/24 08:58 Last Admin: 04/06/24 08:28 Dose: 1 each Nicotine (Nicotine 21 Mg/24 Hr Tdsy) 1 patch TD QAM [facility] Stop: 05/05/24 22:06 Last Admin: 04/06/24 08:27 Dose: 1 patch Ondansetron HCl (Ondansetron Inj 2 Mg/Ml 2 Ml Vial) 4 mg IV Q6H PRN PRN Reason: Nausea Stop: 05/05/24 22:06 Last Admin: 04/06/24 01:00 Dose: 4 mg Polyethylene Glycol (Polyethylene (Miralax) 17 Gm Pack) 17 gm PO DAILY PRN PRN Reason: Constipation Stop: 05/05/24 22:06
[2024-04-07] MEDS ORDERED: SODIUM PHOSPHATE 3 MMOL/1 ML INFUSION IV STA (08:19)
[2024-04-07] MEDS: POT PHOSPHATE MONOBASIC W/ SOD TAB PO SCH (08:30)
[2024-04-07 09:01] LABS: Base Excess VBG -1.8 mEq/L; HCO3 VBG 26 mmol/L; Oxygen Saturation VBG 70.4 %; PCO2 VBG 55 mmHg (38-50); PO2 VBG 39 mmHg; pH VBG 7.28 (7.36-7.41)
--- NOTE | 2024-04-07 09:26 | Nephrology Progress Note ---
Date of Service April 07, 2024 Assessment & Plan (1) Hypercalcemia: Plan: mild recurrent hypercalcemia resolved for now w/ supportive care / rehydration. calcium may well rise again given HPTH hx. plts from 166> 89 > 77 >> would monitor and reevaluate ar if unexpected MS changes -started calcitriol 0.25 mcg daily will sign off; NEPHRO D/C RECS -d/c on calcitriol above -[facility] d/c appt 40 min w/in a month w/ any physician provider in [facility] CKD clinic for w/u of HPTH w/in a month of d/c -labs for neph visit to be ordered by neph nurse >> urorisk (24 hr urine), PTH, 25 OHD, bmp, ionized calcium, cbc, phos, ACR, UACM -will f/u pending PTHrp (send out) as OP -continue IV fluids as feasible Care coordinated w/ Dr Melly franco renal function, calcium, f/u labs; appreciate c/s; we are in agreement (2) NGOZI (acute kidney injury): Plan: stage 1 nonoliguric NGOZI from both prerenal and ATN > clinicallly improving. few datapoints for baseline but was 1.01 November 2023. no e/o fluid overload or (other than calcium on admission) abnormal serum chemistries. both keppra and lamictal can cause NGOZI but these are obligate meds for her. abd imaging shows no obstruction. UA c/w ATN. currently on plasmalyte 80 ml/hr which she is tolerating and can continue >daily bmp -encourage PO Admission and Anticipated Discharge Date Admission Date: April 05, 2024 Subjective off of bipap; feels much improved; no sob or edema; no n/v/abd pain or constipation. denies voiding concerns Review of Systems 2 Review of Systems: All systems reviewed & are unremarkable except as noted in Subjective Physical Exam 2 Constitutional: well developed and + thin (very small framed); no acute distress Eyes: EOM intact bilaterally ENMT: Mouth: + dry oral mucous membranes Respiratory: normal respiratory effort (on 02NC); no respiratory distress A uscultation: + diminished lung sounds Cardiovascular: RRR, no murmur, no edema Gastrointestinal (Abdomen): Inspection/Auscultation: normal bowel sounds P ercussion/Palpation: abdomen soft; abdomen nontender Musculoskeletal: Extremities: strength 5/5 throughout Skin: no rashes, warm and dry Results & Data Vital Signs (Past 12 Hours) Vital Signs Pulse Pulse Resp BP Pulse Ox O2 Del Method O2 Del Method 04/07/24 07:53 81 18 97 Nasal Cannula 04/07/24 06:03 63 0 L 100/53 L 92 04/07/24 05:45 69 0 L 91 04/07/24 05:06 57 L 20 101/59 L 96 04/07/24 04:57 62 15 97 04/07/24 04:31 106/60 04/07/24 04:30 64 3 L 99 04/07/24 04:06 63 19 92/47 L 97 04/07/24 03:39 65 16 96 04/07/24 03:00 106/62 04/07/24 03:00 65 16 95 04/07/24 02:30 83 17 95 04/07/24 02:00 56 L 16 114/64 94 04/07/24 01:42 75 0 L 88 L 04/07/24 01:03 59 L 18 110/61 97 04/07/24 00:57 81 0 L 94 04/07/24 00:46 71 04/07/24 00:39 61 0 L 97 04/07/24 00:03 61 0 L 97/61 L 98 04/07/24 00:00 Nasal Cannula 04/06/24 23:57 61 0 L 97 04/06/24 23:30 65 0 L 97 04/06/24 23:00 135/83 04/06/24 23:00 74 0 L 135/83 97 04/06/24 22:33 71 0 L 96 04/06/24 22:00 54 L 0 L 111/73 97 04/06/24 21:45 56 L 0 L 98 O2 Flow Rate O2 Flow Rate 04/07/24 07:53 2 04/07/24 06:03 04/07/24 05:45 04/07/24 05:06 04/07/24 04:57 04/07/24 04:31 04/07/24 04:30 04/07/24 04:06 04/07/24 03:39 04/07/24 03:00 04/07/24 03:00 04/07/24 02:30 04/07/24 02:00 04/07/24 01:42 04/07/24 01:03 04/07/24 00:57 04/07/24 00:46 04/07/24 00:39 04/07/24 00:03 04/07/24 00:00 2 04/06/24 23:57 04/06/24 23:30 04/06/24 23:00 04/06/24 23:00 04/06/24 22:33 04/06/24 22:00 04/06/24 21:45 Laboratory Results 04/07/24 05:09 04/07/24 05:09
--- NOTE | 2024-04-07 10:18 | Critical Care Progress Note ---
Date of Service April 07, 2024 Assessment & Plan (1) Acute exacerbation of COPD with asthma: (2) Narcotic overdose: (3) Respiratory acidosis: (4) NGOZI (acute kidney injury): (5) Thrombocytopenia: Plan 58-year-old female with a history of major depressive disorder who recently was discharged from an inpatient psychiatric facility on methadone therapy presenting to the hospital due to somnolence and acute hypercapnic respiratory failure. Neurologic: Patient off Narcan infusion. Mental status dramatically improved today. Hold sedating medications. CT head with chronic posterior cerebral infarct and nonspecific white matter hypodensities. Questionable history of seizure disorder. Pulmonary: Will transition from her IV methylprednisone to p.o. prednisone. Recommended total course of 5 days. Continue ICS and LABA nebulized therapy and DuoNebs as needed. Patient with also possible signs of aspiration pneumonitis on CT chest. Antibiotics discontinued as no evidence of fever or significant cough. Respiratory viral panel and MRSA screen negative. VBG improved with mild acidosis seen. Cardiovascular: EKG reviewed with findings of sinus rhythm with short ND. Troponin negative. Hold lisinopril at this time due to NGOZI. Gastrointestinal: N.p.o. for the time being. Renal: CT abdomen pelvis without evidence of hydronephrosis. 3 mm nonobstructing left renal calculus seen. Patient with NGOZI which is improving. Monitor urine output closely due to Cohen. Appreciate nephrology input given mild hypercalcemia. Patient to follow-up as an outpatient. Infectious disease: Suspected mild element of aspiration pneumonitis. Patient without overt pneumon ia symptoms, fever or leukocytosis. Antibiotics discontinued. Hematologic: Patient with mild leukopenia and thrombocytopenia. Possible cirrhosis and/or medication induced. Will defer to primary team for further workup at this time. No evidence of bleeding at this time. Endocrine: TSH unremarkable. Maintain euglycemia. VTE prophylaxis: Lovenox CODE STATUS: Full code Family at bedside: None available at bedside Disposition: Transfer out of ICU today. Admission and Anticipated Discharge Date Admission Date: April 05, 2024 Subjective Patient much better today and alert and oriented. Off BiPAP. Off Narcan infusion. Denies any significant chest pain or shortness of breath. Has some mild bodyaches. No fevers or chills. Review of Systems Review of Systems: All systems reviewed & are unremarkable except as noted in HPI & below Physical Exam Physical Exam: Constitutional: Patient appears to be of their stated age. Cachectic appearing female in no apparent distress Eyes: Pupils are equal round and reactive to light. Conjunctivae are normal. Anicteric sclera. Ears nose, mouth and throat: BiPAP in place. No peripheral cyanosis. Neck: Trachea is midline. Visual inspection is normal. Respiratory: Clear to auscultation bilaterally. No use of accessory muscles. No significant clubbing noted. Cardiovascular: Regular rate and rhythm. No murmurs. No edema. Gastrointestinal: Normal bowel sounds, soft, nontender and nondistended. No hepatosplenomegaly noted. Musculoskeletal: No cyanosis. Patient is able to move all extremities. Strength is 5 out of 5 in the upper and lower extremities. Skin: No rashes, warm dry and intact. Neurologic: No obvious focal neurological deficits seen. Psychiatric: Alert and oriented x3 with a euthymic affect. Results & Data Results & Data Vital Signs (Past 12 Hours) Vital Signs Pulse Pulse Resp BP Pulse Ox O2 Del Method O2 Del Method 04/07/24 09:56 78 16 94 Nasal Cannula 04/07/24 07:53 81 18 97 Nasal Cannula 04/07/24 06:03 63 0 L 100/53 L 92 04/07/24 05:45 69 0 L 91 04/07/24 05:06 57 L 20 101/59 L 96 04/07/24 04:57 62 15 97 04/07/24 04:31 106/60 04/07/24 04:30 64 3 L 99 04/07/24 04:06 63 19 92/47 L 97 04/07/24 03:39 65 16 96 04/07/24 03:00 106/62 04/07/24 03:00 65 16 95 04/07/24 02:30 83 17 95 04/07/24 02:00 56 L 16 114/64 94 04/07/24 01:42 75 0 L 88 L 04/07/24 01:03 59 L 18 110/61 97 04/07/24 00:57 81 0 L 94 04/07/24 00:46 71 04/07/24 00:39 61 0 L 97 04/07/24 00:03 61 0 L 97/61 L 98 04/07/24 00:00 Nasal Cannula 04/06/24 23:57 61 0 L 97 04/06/24 23:30 65 0 L 97 04/06/24 23:00 135/83 04/06/24 23:00 74 0 L 135/83 97 04/06/24 22:33 71 0 L 96 O2 Flow Rate O2 Flow Rate 04/07/24 09:56 2 04/07/24 07:53 2 04/07/24 06:03 04/07/24 05:45 04/07/24 05:06 04/07/24 04:57 04/07/24 04:31 04/07/24 04:30 04/07/24 04:06 04/07/24 03:39 04/07/24 03:00 04/07/24 03:00 04/07/24 02:30 04/07/24 02:00 04/07/24 01:42 04/07/24 01:03 04/07/24 00:57 04/07/24 00:46 04/07/24 00:39 04/07/24 00:03 04/07/24 00:00 2 04/06/24 23:57 04/06/24 23:30 04/06/24 23:00 04/06/24 23:00 04/06/24 22:33 Coding Level of Care Code 58879 SUB INP/OBS CARE 2/35MIN Diagnoses Acute exacerbation of COPD with asthma J44.1 Narcotic overdose T40.601A Encounter type: initial encounter Injury intent: accidental or unintentional Respiratory acidosis E87.29 NGOZI (acute kidney injury) N17.9 Thrombocytopenia D69.6 (2) Narcotic overdose Encounter type: initial encounter Injury intent: accidental or unintentional Qualified Code(s): T40.601A - Poisoning by unspecified narcotics, accidental (unintentional), initial encounter
[2024-04-07] MEDS: CALCITRIOL 0.25 MCG CAPSULE PO SCH (11:38)
[2024-04-07] MEDS: hydrOXYzine HCl 25 MG TAB PO PRN (22:39)
[2024-04-08] MEDS: predniSONE 20 MG TAB PO SCH (07:38)
[2024-04-08 07:44] LABS: Hematocrit (blood only) 36.2 % (37.0-47.0); Hemoglobin 11.7 g/dl (12.0-16.0); Mean Corpuscular Hemoglobin 30.9 pg (25.0-34.0); Mean Corpuscular Hgb Conc 32.3 g/dL (32.0-36.0); Mean Corpuscular Volume 95.5 fL (80.0-100.0); Mean Platelet Volume 11.7 fL (9.4-12.4); Platelet Count 77 K/uL (130-400); RDW Coefficient of Variation 14.3 % (11.5-14.5); RDW Standard Deviation 49.8 fL (36.4-46.3); Red Blood Count 3.79 M/uL (4.20-5.40)
[2024-04-08 07:51] LABS: Calcium 9.8 mg/dl (8.6-10.3); Creatinine Clr Calc Pharmacy 51.6 ml/min; Magnesium 1.8 mg/dl (1.7-2.4); Phosphorus 2.2 mg/dl (2.5-4.9); Potassium 3.8 mmol/L (3.5-5.1)
--- NOTE | 2024-04-08 09:23 | Electrocardiogram Report ---
Test Reason : Blood Pressure : */* mmHG Vent. Rate : 77 BPM Atrial Rate : 77 BPM P-R Int : 118 ms QRS Dur : 96 ms QT Int : 378 ms P-R-T Axes : 126 140 169 degrees QTcB Int : 427 ms ARM lead reversal Probable Sinus rhythm Right axis deviation Minimal voltage criteria for LVH, may be normal variant Abnormal ECG When compared with ECG of 05-Apr-2024 13:43, Criteria for Septal infarct no longer present Lead reversal now present Confirmed by Brett Adams [id number]) on 04/08/2024 9:23:21 AM Referred By: Marcelina [facility] Confirmed By: Brett Adams
[2024-04-08] MEDS: GABAPENTIN 100 MG CAP PO ONE ×2 (12:56→14:46)
--- NOTE | 2024-04-08 14:55 | Psychiatric Progress Note ---
Date of Service April 08, 2024 Impression / Recommendations Impression 58 y/o F h/o depression presents from [facility] with accidental methadone OD after 1+ week break from medication and was restarted at facility when admitted for depression. Psychiatry consulted for evaluation given recent psychiatry admission. Current medical problems include hypercapnia, NGOZI with Cr of 1.86, UTI, elevated PTH. Labs reviewed: CBC, CMP unremarkable, Vit D low at 12.5, PTH elevated at 241.6, UA+LE+, urine wbc+, UDS+methadone, elevated transaminases. Patient initially presented to [facility] for worsening depressive episode with no initial or current suicidal ideation. She is able to contract for safety. She is future oriented and requests to return to [facility] upon medical stabilization. No acute safety concerns presented. Antidepressant medication can be resumed when she returns to facility. A: Increased irritability, anger and reports increased anxiety despite use of gabapentin and lamictal. She declines offers to initiate an SSRI or SNRI and review of other medication options as she is focused on desire for controlled medications. Discussed that I felt these medications were contraindicated given her history of substance use disorder and non-ideal for longer term management of anxiety, depression and insomnia. Offered alternative options all of which she declined. Significant concern for possible secondary gain or substance use disorder given her level of medication seeking behaviors and help seeking/help rejecting with various providers and RNs. She declined any substance use treatment options as she denies any recent substance use issues. Inpatient psychiatric hospitalization could be considered given her report of depression though unclear what symptoms or treatments she is seeking as her main focus is on achieving access to benzodiazepines and Ambien. Acute risk of self-harm is low given denial of SI, future-oriented, and reports strong deterrents to suicide. Chronic risk is low to moderate given no prior attempts but with some non-modifiable risk factors but also with protective factors. Reviewed options to reduce risk and address depression and anxiety including medications and outpatient referrals and non-pharmacological coping skills. Does not meet criteria for 302 commitment given denial of SI, denial of HI and no evidence for psychosis or severe mood episode. Overall, I spent a total of 60 minutes with this case including review of chart records, review of labwork, direct evaluation of the patient at bedside, counseling the patient, discussion of the patient with the Nurse and with the hospitalist provider, discussion with the psychiatric liason during clinical rounds and documentation in the electronic health record. (1) Depression: (2) Elevated liver transaminase level: (3) NGOZI (acute kidney injury): (4) Respiratory acidosis: (5) Narcotic overdose: (6) Anxiety: (7) Insomnia: Plan -Can leave AMA if she desires, doesn't meet 302 criteria and referenced that she may want to leave if she cannot have controlled substances -Discussed and offered multiple medication options including: * Starting an SSRI or SNRI-she refuses * Option to use Vistaril prn for anxiety-she refuses * Starting mirtazapine to help with sleep/anxiety/depression-she refuses but then told the RN she would like to try this. If she remains agreeable would start mirtazapine 15mg HS po with option for an additional 15mg HS prn for insomnia if initial dose does not help with sleep after 1 hour. * Ongoing use of gabapentin reasonable as this can also be helpful off-label for anxiety * Could also consider use of propranolol IR 10mg BID prn for anxiety if medically appropriate -Discussed option to make referrals for outpatient providers for psychiatry and therapy-she declines at this time -For now she is considering option to return to the [facility] once medically stable Interval History Identifying Information 58 y/o F presents from [facility] facility with accidental methadone OD after 1+ week break from medication and was restarted at facility when admitted for depression. Psychiatry consulted for evaluation given recent psychiatry admission. Chief Complaint "I won't be here long, why can't I just have Xanax and Ambien". Subjective Subjective Patient was seen & assessed and interval progress reviewed. Reported increased anxiety today and also wanting to sleep. On assessment does not appear anxious but rather seems quite irritable and states her main goal is to get some sleep. Reviewed recent and past events. She reports stopping methadone recently after "my daughter stole it" and initially reports she was being tapered off it by psychiatric provider at her methadone clinic but then recants this. Blames an RN at the [facility] for giving her the incorrect dose of Methadone. Since these events she's decided she never wants to take Methadone again. Focuses throughout conversation on desire to get Ambien and Xanax. Gets increasingly irritable and starts swearing and bargaining for alternative benzodiazepines when I stated my concerns regarding both classes of medication. She reports feeling that she is "withdrawing from narcan" and wants these medications while she's in the hospital. Discussed goal of finding a medication that offer longer term benefit, she refuses this. Discussed alternative medications for anxiety, depression and insomnia, she declined all options. States she might want to return to the [facility] but otherwise wants to go home, especially if she can't have Ambien or "something to sleep right now". Reviewed concerns about sleeping mid-day and how this could negatively impact sleep cycle and goal of trying a sedation medication tonight if she wants to remain in the hospital to try this. She is not willing to discuss recent depressive symptoms except to state that "not wanting to do anything". Denies hopelessness and denies any current nor recent SI. Denies any prior suicide attempts. Chart noted history of prior methadone overdose but at the time she clarified that this was fabricated as she felt it would allow her to meet criteria for inpatient psych treatment. She denies any recent substance use. Denies access to guns. States strong deterrents to suicide of her alevism and her daughters stating "I would never do that". Denies any history of joya or bipolar disorder, clarifies lamictal is prescribed for history of seizures. She becomes increasingly irritable and states her intent to leave AMA if she cannot have sleeping medication "now". Tells me to leave her room, swears at me and the psychiatric liason on our way out. Physical Exam Psychiatric Orientation: alert and oriented x 3; + uncooperative Apperance: appropriately dressed and appropriately groomed Eye Contact: good eye contact Motor Behavior: no abnormal motor movements Speech: + loud speech and normal rate/rhythm/volume of speech Affect: + angry affect Mood: + irritable mood and + angry mood Thought Process: goal directed thought process Thought Content: + preoccupation and reality based without delusions Suicidal Thoughts: denies suicidal thoughts Homicidal Thoughts: denies homicidal thoughts Hallucinations: no auditory hallucinations and no visual hallucinations Cognition: recent memory grossly intact, remote memory grossly intact, attention grossly intact and language grossly intact Insight: + limited insight Judgment: + poor judgement Vital Signs (Past 24 Hours) Last Vital Signs Temp 36.7 C 04/08/24 13:26 Pulse 113 H 04/08/24 13:26 Resp 18 04/08/24 13:26 BP 188/111 H 12/07/24 13:26 Pulse Ox 93 04/08/24 13:26 O2 Del Method Room Air 04/08/24 13:26 O2 Flow Rate 95 04/07/24 11:39 FiO2 30 04/06/24 15:54 Results & Data ([facility]) Laboratory Results Laboratory Results - last 24 hr 04/08/24 06:55 WBC 3.90 L RBC 3.79 L Hgb 11.7 L Hct 36.2 L MCV 95.5 MCH 30.9 MCHC 32.3 RDW Std Deviation 49.8 H RDW Coeff of Sol 14.3 Plt Count 77 L MPV 11.7 Sodium 143 Potassium 3.8 D Chloride 112 H Carbon Dioxide 28 Anion Gap 3 BUN 32 H Creatinine 0.94 D Est Cr Clr Drug Dosing 51.6 eGFR 70.33 BUN/Creatinine Ratio 34.0 H Glucose 83 Calcium 9.8 Phosphorus 2.2 L Magnesium 1.8 Current Inpatient Medications Current Inpatient Medications: Current Inpatient Medications Acetaminophen (Acetaminophen 325 Mg Tab) 650 mg PO Q4H PRN PRN Reason: Pain or Fever Stop: 05/05/24 22:06 Last Admin: 04/07/24 04:33 Dose: 650 mg Albuterol (Albut/Ipratrop 3mg/0.5mg Neb 3 Ml Vial) 3 ml NEB Q4H PRN; Protocol PRN Reason: Shortness Of Breath Or Wheezing Stop: 05/06/24 01:04 Amlodipine Besylate (Amlodipine Besylate 5 Mg Tab) 5 mg PO DAILY CASIE Stop: 05/06/24 08:59 Last Admin: 04/08/24 07:37 Dose: 5 mg Budesonide (Budesonide 0.5 Mg/2 Ml Vial (Pulmicort)) 0.5 mg NEB BIDR CASIE Stop: 05/06/24 10:31 Last Admin: 04/08/24 08:05 Dose: Not Given Calcitriol (Calcitriol 0.25 Mcg Capsule) 0.25 mcg PO QAM CASIE Stop: 05/07/24 09:29 Last Admin: 04/08/24 07:38 Dose: 0.25 mcg Enoxaparin Sodium (Enoxaparin Inj 30 Mg/0.3 Ml Syr) 30 mg SQ HS CASIE Stop: 05/05/24 22:06 Last Admin: 04/07/24 20:07 Dose: 30 mg Formoterol Fumarate (Formoterol 20 Mcg/2 Ml Vial) 20 mcg NEB BIDR [facility] Stop: 05/06/24 10:31 Last Admin: 04/08/24 08:05 Dose: Not Given Gabapentin (Gabapentin 600 Mg Tab) 600 mg PO TID [facility] Stop: 05/05/24 22:06 Last Admin: 04/06/24 08:28 Dose: 600 mg Hydroxyzine HCl (Hydroxyzine Hcl 25 Mg Tab) 50 mg PO Q8H PRN PRN Reason: For sleep/anxiety Stop: 05/07/24 22:11 Last Admin: 04/07/24 22:39 Dose: 50 mg Magnesium Sulfate/Dextrose (Magnesium Sulfate / D5w) 1 gm in 100 mls @ 50 mls/hr IV ONE ONE Stop: 04/08/24 15:49 Last Admin: 04/08/24 14:46 Dose: 50 mls/hr [facility]otrigine ([facility] 25 Mg Tab) [facility] Protocol Stop: 05/06/24 08:59 Last Admin: 04/08/24 07:36 Dose: 75 mg Lamotrigine (Lamotrigine 100 Mg Tab) 100 mg PO HS [facility]; Protocol Stop: 05/05/24 22:06 Last Admin: 04/07/24 20:08 Dose: 100 mg Levetiracetam (Levetiracetam 500 Mg Tab) 500 mg PO BID [facility] Stop: 05/05/24 22:06 Last Admin: 04/08/24 07:37 Dose: 500 mg Miscellaneous (Remove Nicoderm Patch) 1 each N/A DAILY@0859 [facility] Stop: 05/06/24 08:58 Last Admin: 04/08/24 07:37 Dose: 1 each Nicotine (Nicotine 21 Mg/24 Hr Tdsy) 1 patch TD QAM [facility] Stop: 05/05/24 22:06 Last Admin: 04/08/24 07:36 Dose: 1 patch Ondansetron HCl (Ondansetron Inj 2 Mg/Ml 2 Ml Vial) 4 mg IV Q6H PRN PRN Reason: Nausea Stop: 05/05/24 22:06 Last Admin: 04/06/24 01:00 Dose: 4 mg Polyethylene Glycol (Polyethylene (Miralax) 17 Gm Pack) 17 gm PO DAILY PRN PRN Reason: Constipation Stop: 05/05/24 22:06 Prednisone (Prednisone 20 Mg Tab) 40 mg PO DAILY CASIE Stop: 05/08/24 08:59 Last Admin: 04/08/24 07:38 Dose: 40 mg (5) Narcotic overdose Encounter type: initial encounter Injury intent: accidental or unintentional Qualified Code(s): T40.601A - Poisoning by unspecified narcotics, accidental (unintentional), initial encounter
--- NOTE | 2024-04-08 15:13 | Hospitalist Progress Note ---
Date of Service April 08, 2024 Assessment & Plan (1) Hypoxia: (2) Respiratory acidosis: (3) NGOZI (acute kidney injury): (4) Elevated liver transaminase level: (5) Tobacco use: (6) Seizure disorder: (7) Hypercalcemia: Plan Patient is 58 year old female with PMH HTN, COPD, tobacco use, history drug abuse, on chronic methadone currently, history hepatitis B and C untreated, seizure disorder, fibromyalgia, depression presented to ER from [facility] 2/2 methadone overdose. 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 She is arousable and can tell me she is in the hospital However VBG not improved - pulm. / icu aware -> stat ABG obtained and pt was transferred from ED to ICU 04/07 Pt in ICU on narcan drip, stopped at 10 pm last night. Also, off bipap, currently on NC. She is awake, alert, answers appropriately. Overall feels well. Plan to transfer out of ICU. 04/08 Pt is on RA, no difficulty breathing. Cr normalized as well. Denies any complaints besides anxiety, and lack of sleep Depression On admission - Pt denies SI or HI, placed on suicide checks and prn one-to-one Psychiatry consulted will hold methadone for now, encourage pt to discontinue use, she wishes to taper down, will need to be re evaluated once acidosis resolves Per psychiatry - Antidepressant medication can be resumed when she returns to facility. Plan to Return to [facility] upon discharge 04/08 Pt very anxious today, psychiatry asked to evaluate the patient and help with meds, appreciate their input Possible CAP, possible aspiration CXR: Mild patchy bibasilar and right upper lung opacities may represent a mild infectious or inflammatory pneumonitis. Pt is w/o cough, fever, leukocytosis on admission and so at that time abx not started Pt's resp. status worsened overnight, received solumdrol and zosyn , as above Now abx stopped by icu/pulm provider, will cont. to monitor NGOZI - resolved baseline cr 1.0 Cr 1.6 on admission, lisinopril on hold, gentle IVF avoid nephrotoxic agents Following day Cr 1.86 - Nephrology consulted Current Cr improved 0.9 Hypercalcemia noted in past obtain PTH, vit d level, tsh level previously dx with primary hyperparathyroidism -pt unaware and never had further work up Nephrology consulted - Started her on David trial which should continue at discharge. Discharge Ernesto on chart. Possible primary hyperparathyroidism, which we will work up as an outpatient. NEPHRO D/C RECS -d/c on calcitriol above -hopsital d/c appt 40 min w/in a month w/ any physician provider in [facility] for w/u of HPTH w/in a month of d/c -labs for neph visit to be ordered by neph nurse >> urorisk (24 hr urine), PTH, 25 OHD, bmp, ionized calcium, cbc, phos, ACR, UACM -will f/u pending PTHrp (send out) as OP -continue IV fluids as feasible Hx of Hep B and C un treated Elevated transaminitis no abd complaints repeated - trending down consider US Tobacco abuse: encourage cessation, nicotine patch Seizure d/o: continue lamictal and keppra DVT ppx: SQ Lovenox FULL CODE PCP: Unassigned Dispo: PCU (from [facility]) Admission and Anticipated Discharge Date Admission Date: April 05, 2024 Subjective Pt seen in follow up, admitted for hypoxia, lethargy after methadone , from [facility] Received narcan in the ED, and was supposedly better repeat VBGs not improved overnight and so pt on Bipap, received narcan overnight x2, also started treatment with zosyn and 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 Drip stopped at 10 pm. Yesterday in NAD, off Bipap, on NC Today (04/08) on RA, without any difficulty breathing, has good appetite. She is awake, alert, able to answer appropriately. Denies any fever, chills, chest pain, shortness of breath, abd. pain, n/v. However, she is anxious and crying, says she could not sleep last night. She was given hydroxyzine 50 and says 'it was garbage" and did not help at all. Says she does not want methadone ever again. Psychiatry also contacted and discussed with to help w/ symptom management. In contact w/ pt's RN multiple times throughout the day, gabapentin slowly resumed. Pt wishes to return to [facility], CM involved. Review of Systems Review of Systems: All systems reviewed & are unremarkable except as noted in Subjective Physical Exam Physical Exam: General Appearance: Thin, frail, elderly F on RA Head: normocephalic, Atraumatic Eyes: normal inspection, EOMI Neck: supple Respiratory/Chest: Decreased breath sounds, CTA, No accessory muscle use Cardiovascular: S1, S2, No murmur Abdomen/GI:Soft, Non tender, Bowel sounds present Extremities/Musculoskeletal:normal inspection, no edema Neurologic/Psych:AAOX3, grossly no focal neurological deficits, anxious Skin: warm, dry Results & Data Results & Data Vital Signs (Past 12 Hours) Vital Signs Temp Pulse Resp BP Pulse Ox O2 Del Method 04/08/24 13:26 36.7 C 113 H 18 188/111 H 93 Room Air 04/08/24 11:54 36.1 C L 109 H 18 157/102 H 92 Room Air 04/08/24 10:09 36.8 C 105 H 18 163/94 H 93 Room Air 04/08/24 03:38 36.7 C 80 18 154/95 H 91 Room Air Laboratory Results 04/08/24 Range/Units 06:55 WBC 3.90 L (4.8-10.8) K/ul RBC 3.79 L (4.20-5.40) M/uL Hgb 11.7 L (12.0-16.0) g/dl Hct 36.2 L (37.0-47.0) % MCV 95.5 (80.0-100.0) fL MCH 30.9 (25.0-34.0) pg MCHC 32.3 (32.0-36.0) g/dL RDW Std Deviation 49.8 H (36.4-46.3) fL RDW Coeff of Sol 14.3 (11.5-14.5) % Plt Count 77 L (130-400) K/uL MPV 11.7 (9.4-12.4) fL Sodium 143 (136-145) mmol/L Potassium 3.8 D (3.5-5.1) mmol/L Chloride 112 H (98-107) mmol/L Carbon Dioxide 28 (21-32) mmol/L Anion Gap 3 (3-11) BUN 32 H (6-23) mg/dl Creatinine 0.94 D (0.6-1.2) mg/dl Est Cr Clr Drug Dosing 51.6 ml/min eGFR 70.33 BUN/Creatinine Ratio 34.0 H (10-20) Glucose 83 (70-99(Fasting)) mg/dl Calcium 9.8 (8.6-10.3) mg/dl Phosphorus 2.2 L (2.5-4.9) mg/dl Magnesium 1.8 (1.7-2.4) mg/dl Medications Administered Current Inpatient Medications Acetaminophen (Acetaminophen 325 Mg Tab) 650 mg PO Q4H PRN PRN Reason: Pain or Fever Stop: 05/05/24 22:06 Last Admin: 04/07/24 04:33 Dose: 650 mg Albuterol (Albut/Ipratrop 3mg/0.5mg Neb 3 Ml Vial) 3 ml NEB Q4H PRN; Protocol PRN Reason: Shortness Of Breath Or Wheezing Stop: 05/06/24 01:04 Amlodipine Besylate (Amlodipine Besylate 5 Mg Tab) 5 mg PO DAILY [facility] Stop: 05/06/24 08:59 Last Admin: 04/08/24 07:37 Dose: 5 mg Budesonide (Budesonide 0.5 Mg/2 Ml Vial (Pulmicort)) 0.5 mg NEB BIDR [facility] Stop: 05/06/24 10:31 Last Admin: 04/08/24 08:05 Dose: Not Given Calcitriol (Calcitriol 0.25 Mcg Capsule) 0.25 mcg PO QAM [facility] Stop: 05/07/24 09:29 Last Admin: 04/08/24 07:38 Dose: 0.25 mcg Enoxaparin Sodium (Enoxaparin Inj 30 Mg/0.3 Ml Syr) 30 mg SQ HS [facility] Stop: 05/05/24 22:06 Last Admin: 04/07/24 20:07 Dose: 30 mg Formoterol Fumarate (Formoterol 20 Mcg/2 Ml Vial) 20 mcg NEB BIDR [facility] Stop: 05/06/24 10:31 Last Admin: 04/08/24 08:05 Dose: Not Given Gabapentin (Gabapentin 600 Mg Tab) 600 mg PO TID [facility] Stop: 05/05/24 22:06 Last Admin: 04/06/24 08:28 Dose: 600 mg Hydroxyzine HCl (Hydroxyzine Hcl 25 Mg Tab) 50 mg PO Q8H PRN PRN Reason: For sleep/anxiety Stop: 05/07/24 22:11 Last Admin: 04/07/24 22:39 Dose: 50 mg Magnesium Sulfate/Dextrose (Magnesium Sulfate / D5w) 1 gm in 100 mls @ 50 mls/hr IV ONE ONE Stop: 04/08/24 15:49 Last Admin: 04/08/24 14:46 Dose: 50 mls/hr Lamotrigine (Lamotrigine 25 Mg Tab) [facility] [place] [facility] [place] Protocol Stop: 05/06/24 08:59 Last Admin: 04/08/24 07:36 Dose: 75 mg Lamotrigine (Lamotrigine 100 Mg Tab) 100 mg PO HS [facility]; Protocol Stop: 05/05/24 22:06 Last Admin: 04/07/24 20:08 Dose: 100 mg Levetiracetam (Levetiracetam 500 Mg Tab) 500 mg PO BID [facility] Stop: 05/05/24 22:06 Last Admin: 04/08/24 07:37 Dose: 500 mg Miscellaneous (Remove Nicoderm Patch) 1 each N/A DAILY@0859 [facility] Stop: 05/06/24 08:58 Last Admin: 04/08/24 07:37 Dose: 1 each Nicotine (Nicotine 21 Mg/24 Hr Tdsy) 1 patch TD [facility] Stop: 05/05/24 22:06 Last Admin: 04/08/24 07:36 Dose: 1 patch Ondansetron HCl (Ondansetron Inj 2 Mg/Ml 2 Ml Vial) 4 mg IV Q6H PRN PRN Reason: Nausea Stop: 05/05/24 22:06 Last Admin: 04/06/24 01:00 Dose: 4 mg Polyethylene Glycol (Polyethylene (Miralax) 17 Gm Pack) 17 gm PO DAILY PRN PRN Reason: Constipation Stop: 05/05/24 22:06 Prednisone (Prednisone 20 Mg Tab) 40 mg PO DAILY [facility] Stop: 05/08/24 08:59 Last Admin: 04/08/24 07:38 Dose: 40 mg
[2024-04-08] MEDS: LORazepam 0.5 MG TAB PO STA (16:55)
[2024-04-08] MEDS: MAGNESIUM SULFATE / D5W 1 GM/100 ML BAG IV ONE (17:00)
[2024-04-08] MEDS: GABAPENTIN 250 MG/5 ML 470 ML BTL PO ONE (17:02)
[2024-04-08] MEDS: MIRTAZAPINE TAB 15 MG TAB PO SCH (17:02)
[2024-04-08] MEDS: GABAPENTIN 600 MG TAB PO SCH (20:40)
[2024-04-09] MEDS: MIRTAZAPINE TAB 15 MG TAB PO ONE ×2 (01:59→20:48)
[2024-04-09 04:33] LABS: Methadone, Ur Metabolite >10000 ng/mL (<100); Methadone, Ur Verification >10000 ng/mL (<100)
[2024-04-09 06:00] LABS: Hematocrit (blood only) 39.2 % (37.0-47.0); Hemoglobin 12.9 g/dl (12.0-16.0); Mean Corpuscular Hemoglobin 31.2 pg (25.0-34.0); Mean Corpuscular Hgb Conc 32.9 g/dL (32.0-36.0); Mean Corpuscular Volume 94.9 fL (80.0-100.0); Mean Platelet Volume 11.3 fL (9.4-12.4); Platelet Count 87 K/uL (130-400); RDW Coefficient of Variation 13.9 % (11.5-14.5); RDW Standard Deviation 48.6 fL (36.4-46.3); Red Blood Count 4.13 M/uL (4.20-5.40); White Blood Count 4.64 K/ul (4.8-10.8)
[2024-04-09 06:14] LABS: BUN Creatinine Ratio 37.3 (10-20); Calcium 10.5 mg/dl (8.6-10.3); Creatinine Clr Calc Pharmacy 56.6 ml/min; Phosphorus 2.3 mg/dl (2.5-4.9); Potassium 3.6 mmol/L (3.5-5.1)
[2024-04-09] MEDS: lisinopril 40 MG TAB PO SCH (09:09)
[2024-04-09] MEDS: POTASSIUM CHLORIDE CRTAB 20 MEQ TABCR PO STA (12:18)
--- NOTE | 2024-04-09 15:13 | Psychiatric Progress Note ---
Date of Service April 09, 2024 Impression / Recommendations Impression 58 y/o F h/o depression presents from [facility] with accidental methadone OD after 1+ week break from medication and was restarted at facility when admitted for depression. Psychiatry consulted for evaluation given recent psychiatry admission. Current medical problems include hypercapnia, NGOZI with Cr of 1.86, UTI, elevated PTH. Labs reviewed: CBC, CMP unremarkable, Vit D low at 12.5, PTH elevated at 241.6, UA+LE+, urine wbc+, UDS+methadone, elevated transaminases. Acute risk of self-harm is low given denial of SI, future-oriented, and reports strong deterrents to suicide. Chronic risk is low to moderate given no prior attempts but with some non-modifiable risk factors but also with protective factors. Reviewed options to reduce risk and address depression and anxiety including medications and outpatient referrals and non-pharmacological coping skills. Does not meet criteria for 302 commitment given denial of SI, denial of HI and no evidence for psychosis or severe mood episode. A: Today slept well with mirtazapine but reports opioid withdrawal symptoms, recommendations for symptomatic management per below. Slightly atypical to be having such significant withdrawal this far out from narcan administration but also unclear what if any other substances or any additional opioid use may have been occurring recently. Would recommend hospitalist team confirm her outpatient provider (previously [facility]) would be willing to continue her methadone script before it is restarted in the hospital. Given recent respiratory suppression would advise starting at initial dose rather than returning to her previous dose given unclear timeline of absence of use and unclear what if any other substances may have been used recently. Mood otherwise stable, endorses some increased emotional lability which she attributes to withdrawal symptoms. Future focused. Overall, I spent a total of 35 minutes with this case including review of chart records, review of labwork, direct evaluation of the patient at bedside, counseling the patient, discussion of the patient with the Nurse and with the hospitalist provider, discussion with the psychiatric liason during clinical rounds and documentation in the electronic health record. (1) Depression: (2) Elevated liver transaminase level: (3) NGOZI (acute kidney injury): (4) Respiratory acidosis: (5) Narcotic overdose: (6) Anxiety: (7) Insomnia: Plan 04/09/2024: -Continue mirtazapine 15mg HS scheduled -Consider monitoring withdrawal using COWS (Clinical Opiate Withdrawal Scale). -Symptomatic medication options: * Clonidine day 1-4: 0.1 mg q6h prn up to 1.2 mg/day (hold for SBP<100), day 5 complete and reduce dose by 0.2 mg per day until discontinued OR can use clonidine patch 0.2 mg per day. * dicyclomine 20mg q6h prn abdominal cramps * loperamide 2mg q6h prn diarrhea * ibuprofen 600 mg q6h prn pain * hydroxyzine 50mg q6h prn anxiety * mirtazapine 15mg qhs prn for insomnia 04/08/2024: -Can leave AMA if she desires, doesn't meet 302 criteria and referenced that she may want to leave if she cannot have controlled substances -Discussed and offered multiple medication options including: * Starting an SSRI or SNRI-she refuses * Option to use Vistaril prn for anxiety-she refuses * Starting mirtazapine to help with sleep/anxiety/depression-she refuses but then told the RN she would like to try this. If she remains agreeable would start mirtazapine 15mg HS po with option for an additional 15mg HS prn for insomnia if initial dose does not help with sleep after 1 hour. * Ongoing use of gabapentin reasonable as this can also be helpful off-label for anxiety * Could also consider use of propranolol IR 10mg BID prn for anxiety if medically appropriate -Discussed option to make referrals for outpatient providers for psychiatry and therapy-she declines at this time -For now she is considering option to return to the [facility] once medically stable Interval History Identifying Information 58 y/o F presents from [facility] facility with accidental methadone OD after 1+ week break from medication and was restarted at facility when admitted for depression. Psychiatry consulted for evaluation given recent psychiatry admission. Chief Complaint "I'm withdrawing". Subjective Subjective Patient was seen & assessed and interval progress reviewed. Reports she did sleep well with mirtazapine last night. Denies any side effects. Apolgizes for being irritable yesterday and feels she is irritable again today due to "withdrawing". States her desire to restart Methadone, reviewed that typically this would require confirmation with her outpatient clinic that they would be willing to re-prescribe especially given that she stopped her Methadone vs was not able to re-prescribed two weeks prior to admission under unclear circumstances. Physical Exam Psychiatric Orientation: alert and oriented x 3 Apperance: appropriately dressed and + disheveled Eye Contact: + fair eye contact Motor Behavior: no abnormal motor movements Speech: + loud speech and normal rate/rhythm/volume of speech Affect: + anxious affect and + irritable affect Mood: + anxious mood and + irritable mood Thought Process: goal directed thought process Thought Content: + preoccupation and reality based without delusions Suicidal Thoughts: denies suicidal thoughts Homicidal Thoughts: denies homicidal thoughts Hallucinations: no auditory hallucinations and no visual hallucinations Cognition: recent memory grossly intact, remote memory grossly intact, attention grossly intact and language grossly intact Insight: + limited insight Judgment: + limited judgement Vital Signs (Past 24 Hours) Last Vital Signs Temp 36.6 C 04/09/24 10:00 Pulse 91 H 04/09/24 12:25 Resp 18 04/09/24 12:25 BP 143/91 H 04/09/24 12:25 Pulse Ox 92 04/09/24 12:25 O2 Del Method Room Air 04/09/24 12:25 O2 Flow Rate 0 04/09/24 10:00 FiO2 30 04/06/24 15:54 Results & Data ([facility]) Laboratory Results Laboratory Results - last 24 hr 04/05/24 04/09/24 19:29 05:40 WBC 4.64 L RBC 4.13 L Hgb 12.9 Hct 39.2 MCV 94.9 MCH 31.2 MCHC 32.9 RDW Std Deviation 48.6 H RDW Coeff of Sol 13.9 Plt Count 87 L MPV 11.3 Sodium 144 Potassium 3.6 Chloride 111 H Carbon Dioxide 29 Anion Gap 4 BUN 31 H Creatinine 0.83 Est Cr Clr Drug Dosing 56.6 eGFR 81.66 BUN/Creatinine Ratio 37.3 H Glucose 79 Calcium 10.5 H Phosphorus 2.3 L Magnesium 2.0 U Methadone Metabolites >01337 H Ur Methadone Confirm >09033 H Drug Screen Comment SEE NOTE Current Inpatient Medications Current Inpatient Medications: Current Inpatient Medications Acetaminophen (Acetaminophen 325 Mg Tab) 650 mg PO Q4H PRN PRN Reason: Pain or Fever Stop: 05/05/24 22:06 Last Admin: 04/07/24 04:33 Dose: 650 mg Albuterol (Albut/Ipratrop 3mg/0.5mg Neb 3 Ml Vial) 3 ml NEB Q4H PRN; Protocol PRN Reason: Shortness Of Breath Or Wheezing Stop: 05/06/24 01:04 Amlodipine Besylate (Amlodipine Besylate 5 Mg Tab) 5 mg PO DAILY [facility] Stop: 05/06/24 08:59 Last Admin: 04/09/24 08:16 Dose: 5 mg Budesonide (Budesonide 0.5 Mg/2 Ml Vial (Pulmicort)) 0.5 mg NEB BIDR [facility] Stop: 05/06/24 10:31 Last Admin: 04/09/24 07:19 Dose: Not Given Calcitriol (Calcitriol 0.25 Mcg Capsule) 0.25 mcg PO QAM [facility] Stop: 05/07/24 09:29 Last Admin: 04/09/24 09:10 Dose: 0.25 mcg Enoxaparin Sodium (Enoxaparin Inj 30 Mg/0.3 Ml Syr) 30 mg SQ [facility] Stop: 05/05/24 22:06 Last Admin: 04/08/24 20:40 Dose: 30 mg Formoterol Fumarate (Formoterol 20 Mcg/2 Ml Vial) 20 mcg NEB BIDR [facility] Stop: 05/06/24 10:31 Last Admin: 04/09/24 07:19 Dose: Not Given Gabapentin (Gabapentin 600 Mg Tab) 300 mg PO TID [facility] Stop: 05/08/24 20:59 Last Admin: 04/09/24 12:17 Dose: 300 mg Hydroxyzine HCl (Hydroxyzine Hcl 25 Mg Tab) 50 mg PO Q8H PRN PRN Reason: For sleep/anxiety Stop: 05/07/24 22:11 Last Admin: 04/07/24 22:39 Dose: 50 mg Lamotrigine (Lamotrigine 25 Mg Tab) [facility]; Protocol Stop: 05/06/24 08:59 Last Admin: 04/09/24 09:11 Dose: 75 mg Lamotrigine (Lamotrigine 100 Mg Tab) 100 mg PO [facility]; Protocol Stop: 05/05/24 22:06 Last Admin: 04/08/24 20:40 Dose: 100 mg Levetiracetam (Levetiracetam 500 Mg Tab) 500 mg PO BID [facility] Stop: 05/05/24 22:06 Last Admin: 04/09/24 09:13 Dose: 500 mg Lisinopril (Lisinopril 40 Mg Tab) 40 mg PO DAILY [facility] Stop: 05/09/24 08:59 Last Admin: 04/09/24 09:09 Dose: 40 mg Mirtazapine (Mirtazapine Tab 15 Mg Tab) 15 mg PO HS [facility] Stop: 05/08/24 20:59 Last Admin: 04/08/24 17:02 Dose: 15 mg Miscellaneous (Remove Nicoderm Patch) 1 each N/A DAILY@0859 [facility] Stop: 05/06/24 08:58 Last Admin: 04/09/24 09:13 Dose: 1 each Nicotine (Nicotine 21 Mg/24 Hr Tdsy) 1 patch TD QAM [facility] Stop: 05/05/24 22:06 Last Admin: 04/09/24 09:13 Dose: 1 patch Ondansetron HCl (Ondansetron Inj 2 Mg/Ml 2 Ml Vial) 4 mg IV Q6H PRN PRN Reason: Nausea Stop: 05/05/24 22:06 Last Admin: 04/06/24 01:00 Dose: 4 mg Polyethylene Glycol (Polyethylene (Miralax) 17 Gm Pack) 17 gm PO DAILY PRN PRN Reason: Constipation Stop: 05/05/24 22:06 Prednisone (Prednisone 20 Mg Tab) 40 mg PO DAILY [facility] Stop: 05/08/24 08:59 Last Admin: 04/09/24 09:11 Dose: 40 mg (5) Narcotic overdose Encounter type: initial encounter Injury intent: accidental or unintentional Qualified Code(s): T40.601A - Poisoning by unspecified narcotics, accidental (unintentional), initial encounter
[2024-04-09] MEDS ORDERED: DICYCLOMINE HCL 20 MG TAB PO PRN (15:22)
[2024-04-09] MEDS: cloNIDine HCL 0.1 MG TAB PO ONE (16:21)
[2024-04-09] MEDS: LOPERAMIDE HCL 2 MG CAP PO PRN (16:21)
--- NOTE | 2024-04-09 17:15 | Hospitalist Progress Note ---
Date of Service April 09, 2024 Assessment & Plan (1) Hypoxia: (2) Respiratory acidosis: (3) NGOZI (acute kidney injury): (4) Elevated liver transaminase level: (5) Tobacco use: (6) Seizure disorder: (7) Hypercalcemia: Plan Patient is 58 year old female with PMH HTN, COPD, tobacco use, history drug abuse, on chronic methadone currently, history hepatitis B and C untreated, seizure disorder, fibromyalgia, depression presented to ER from [facility] 2/2 methadone overdose. Acute Hypoxic, hypercapnic respiratory failure Respiratory acidosis in setting of overdose of methadone Major Depressive disorder pt stopped methadone prior to and while at the [facility] today took a 145mg dose that resulted in hypoxia, somnolence, lethargy which prompted ER eval s/p IV narcan 0.2mg which improved sx VBG ph 7.2, pCO2 60 - protecting airway and no longer somnolent on admission 04/06 repeat VBGs not improved overnight and so pt on Bipap, received narcan overnight x2, also started treatment with zosyn and solumedrol - transport specialist discussed w/ icu on Bipap. She is arousable and can tell me she is in the hospital However VBG not improved - pulm. / icu aware -> stat ABG obtained and pt was transferred from ED to ICU 04/07 Pt in ICU on narcan drip, stopped at 10 pm last night. Also, off bipap, currently on NC. She is awake, alert, answers appropriately. Overall feels well. Plan to transfer out of ICU. 04/08 Pt is on RA, no difficulty breathing. Cr normalized as well. Denies any complaints besides anxiety, and lack of sleep 04/09 Improved sleep w/ mirtazapine. However, continues to be anxious. Psychiatry involved. Depression, hx of methadone use On admission - Pt denies SI or HI, placed on suicide checks and prn one-to-one Psychiatry consulted will hold methadone for now, encourage pt to discontinue use, she wishes to taper down, will need to be re evaluated once acidosis resolves Per psychiatry - Antidepressant medication can be resumed when she returns to facility. Plan to Return to [facility] upon discharge 04/08 Pt very anxious today, psychiatry asked to evaluate the patient and help with meds, appreciate their input 04/09 Sleep improved w/ mirtazapine. Continues to be anxious, feels she is withdrawing. Psychiatry involved. Possible CAP, possible aspiration CXR: Mild patchy bibasilar and right upper lung opacities may represent a mild infectious or inflammatory pneumonitis. Pt is w/o cough, fever, leukocytosis on admission and so at that time abx not started Pt's resp. status worsened overnight, received solumdrol and zosyn , as above Now abx stopped by icu/pulm provider, will cont. to monitor NGOZI - resolved baseline cr 1.0 Cr 1.6 on admission, lisinopril on hold, gentle IVF avoid nephrotoxic agents Following day Cr 1.86 - Nephrology consulted Current Cr improved 0.9 Hypercalcemia noted in past obtain PTH, vit d level, tsh level previously dx with primary hyperparathyroidism -pt unaware and never had further work up Nephrology consulted - Started her on David trial which should continue at discharge. Discharge Ernesto on chart. Possible primary hyperparathyroidism, which we will work up as an outpatient. NEPHRO D/C RECS -d/c on calcitriol above -hopsital d/c appt 40 min w/in a month w/ any physician provider in [facility] for w/u of HPTH w/in a month of d/c -labs for neph visit to be ordered by neph nurse >> urorisk (24 hr urine), PTH, 25 OHD, bmp, ionized calcium, cbc, phos, ACR, UACM -will f/u pending PTHrp (send out) as OP -continue IV fluids as feasible Hx of Hep B and C un treated Elevated transaminitis no abd complaints repeated - trending down consider US Tobacco abuse: encourage cessation, nicotine patch Seizure d/o: continue lamictal and keppra DVT ppx: SQ Lovenox FULL CODE PCP: Unassigned Dispo: PCU (from [facility]) Admission and Anticipated Discharge Date Admission Date: April 05, 2024 Subjective Pt seen in follow up, admitted for hypoxia, lethargy after methadone , from [facility] Received narcan in the ED, and was supposedly better repeat VBGs not improved overnight and so pt on Bipap, received narcan overnight x2, also started treatment with zosyn and solumedrol - transport specialist discussed w/ icu Pt eventually transferred to ICU from ED, was on narcan drip. Yesterday (04/08) on RA, without any difficulty breathing, has good appetite. She is awake, alert, able to answer appropriately. Denies any fever, chills, chest pain, shortness of breath, abd. pain, n/v. However, she is anxious and crying, says she could not sleep last night. She was given hydroxyzine 50 and says 'it was garbage" and did not help at all. Says she does not want methadone ever again. Psychiatry also contacted and discussed with to help w/ symptom management. In contact w/ pt's RN multiple times throughout the day, gabapentin slowly resumed. Pt wishes to return to [facility] involved. 04/09 Pt used mirtazapine as recommended by psych and slept well. However continues to be anxious, says she is withdrawing from methadone. Discussed w/ psychiatry again - adjusted meds. Pt also thinks she wants to be on methadone. Communicated w/ RN multiple times throughout a day. Review of Systems Review of Systems: All systems reviewed & are unremarkable except as noted in Subjective Physical Exam Physical Exam: General Appearance: Thin, frail, elderly F on RA Head: normocephalic, Atraumatic Eyes: normal inspection, EOMI Neck: supple Respiratory/Chest: Decreased breath sounds, CTA, No accessory muscle use Cardiovascular: S1, S2, No murmur Abdomen/GI:Soft, Non tender, Bowel sounds present Extremities/Musculoskeletal:normal inspection, no edema Neurologic/Psych:AAOX3, grossly no focal neurological deficits, anxious Skin: warm, dry Results & Data Results & Data Vital Signs (Past 12 Hours) Vital Signs Temp Pulse Pulse Resp BP Pulse Ox O2 Del Method 04/09/24 16:25 36.6 C 100 H 17 157/108 H 92 Room Air 04/09/24 12:25 91 H 18 143/91 H 92 Room Air 04/09/24 10:59 Room Air 04/09/24 10:00 36.6 C 105 H 18 167/92 H 92 Room Air 04/09/24 08:03 203/143 H 04/09/24 08:02 36.8 C 92 H 18 178/110 H 96 Room Air 04/09/24 08:00 76 04/09/24 08:00 186/112 H O2 Flow Rate 04/09/24 16:25 04/09/24 12:25 04/09/24 10:59 04/09/24 10:00 0 04/09/24 08:03 04/09/24 08:02 04/09/24 08:00 04/09/24 08:00 Laboratory Results 04/09/24 04/05/24 Range/Units 05:40 19:29 WBC 4.64 L (4.8-10.8) K/ul RBC 4.13 L (4.20-5.40) M/uL Hgb 12.9 (12.0-16.0) g/dl Hct 39.2 (37.0-47.0) % MCV 94.9 (80.0-100.0) fL MCH 31.2 (25.0-34.0) pg MCHC 32.9 (32.0-36.0) g/dL RDW Std Deviation 48.6 H (36.4-46.3) fL RDW Coeff of Sol 13.9 (11.5-14.5) % Plt Count 87 L (130-400) K/uL MPV 11.3 (9.4-12.4) fL Sodium 144 (136-145) mmol/L Potassium 3.6 (3.5-5.1) mmol/L Chloride 111 H (98-107) mmol/L Carbon Dioxide 29 (21-32) mmol/L Anion Gap 4 (3-11) BUN 31 H (6-23) mg/dl Creatinine 0.83 (0.6-1.2) mg/dl Est Cr Clr Drug Dosing 56.6 ml/min eGFR 81.66 BUN/Creatinine Ratio 37.3 H (10-20) Glucose 79 (70-99(Fasting)) mg/dl Calcium 10.5 H (8.6-10.3) mg/dl Phosphorus 2.3 L (2.5-4.9) mg/dl Magnesium 2.0 (1.7-2.4) mg/dl U Methadone Metabolites >33483 H (<100) ng/mL Ur Methadone Confirm >70243 H (<100) ng/mL Drug Screen Comment SEE NOTE Medications Administered Current Inpatient Medications Acetaminophen (Acetaminophen 325 Mg Tab) 650 mg PO Q4H PRN PRN Reason: Pain or Fever Stop: 05/05/24 22:06 Last Admin: 04/07/24 04:33 Dose: 650 mg Albuterol (Albut/Ipratrop 3mg/0.5mg Neb 3 Ml Vial) 3 ml NEB Q4H PRN; Protocol PRN Reason: Shortness Of Breath Or Wheezing Stop: 05/06/24 01:04 Amlodipine Besylate (Amlodipine Besylate 5 Mg Tab) 5 mg PO DAILY [facility] Stop: 05/06/24 08:59 Last Admin: 04/09/24 08:16 Dose: 5 mg Budesonide (Budesonide 0.5 Mg/2 Ml Vial (Pulmicort)) 0.5 mg NEB BIDR [facility] Stop: 05/06/24 10:31 Last Admin: 04/09/24 07:19 Dose: Not Given Calcitriol (Calcitriol 0.25 Mcg Capsule) 0.25 mcg PO QAM [facility] Stop: 05/07/24 09:29 Last Admin: 04/09/24 09:10 Dose: 0.25 mcg Dicyclomine HCl (Dicyclomine Hcl 20 Mg Tab) 20 mg PO Q6H PRN PRN Reason: abdominal cramps Stop: 05/09/24 15:29 Enoxaparin Sodium (Enoxaparin Inj 30 Mg/0.3 Ml Syr) 30 mg SQ [facility] Stop: 05/05/24 22:06 Last Admin: 04/08/24 20:40 Dose: 30 mg Formoterol Fumarate (Formoterol 20 Mcg/2 Ml Vial) 20 mcg NEB BIDR [facility] Stop: 05/06/24 10:31 Last Admin: 04/09/24 07:19 Dose: Not Given Gabapentin (Gabapentin 300 Mg Cap) 300 mg PO QID [facility] Stop: 05/09/24 16:59 Hydroxyzine HCl (Hydroxyzine Hcl 25 Mg Tab) 50 mg PO Q8H PRN PRN Reason: For sleep/anxiety Stop: 05/07/24 22:11 Last Admin: 04/07/24 22:39 Dose: 50 mg [facility]otrigine ([facility]ine 25 Mg Tab) [facility] [place] Protocol Stop: 05/06/24 08:59 Last Admin: 04/09/24 09:11 Dose: 75 mg Lamotrigine (Lamotrigine 100 Mg Tab) 100 mg PO [facility]; Protocol Stop: 05/05/24 22:06 Last Admin: 04/08/24 20:40 Dose: 100 mg Levetiracetam (Levetiracetam 500 Mg Tab) 500 mg PO BID [facility] Stop: 05/05/24 22:06 Last Admin: 04/09/24 09:13 Dose: 500 mg Lisinopril (Lisinopril 40 Mg Tab) 40 mg PO DAILY [facility] Stop: 05/09/24 08:59 Last Admin: 04/09/24 09:09 Dose: 40 mg Loperamide HCl (Loperamide Hcl 2 Mg Cap) 2 mg PO Q6H PRN PRN Reason: Diarrhea Stop: 05/09/24 15:22 Last Admin: 04/09/24 16:21 Dose: 2 mg Mirtazapine (Mirtazapine Tab 15 Mg Tab) 15 mg PO HS [facility] Stop: 05/08/24 20:59 Last Admin: 04/08/24 17:02 Dose: 15 mg Miscellaneous (Remove Nicoderm Patch) 1 each N/A DAILY@0859 [facility] Stop: 05/06/24 08:58 Last Admin: 04/09/24 09:13 Dose: 1 each Nicotine (Nicotine 21 Mg/24 Hr Tdsy) 1 patch TD QAM [facility] Stop: 05/05/24 22:06 Last Admin: 04/09/24 09:13 Dose: 1 patch Ondansetron HCl (Ondansetron Inj 2 Mg/Ml 2 Ml Vial) 4 mg IV Q6H PRN PRN Reason: Nausea Stop: 05/05/24 22:06 Last Admin: 04/06/24 01:00 Dose: 4 mg Polyethylene Glycol (Polyethylene (Miralax) 17 Gm Pack) 17 gm PO DAILY PRN PRN Reason: Constipation Stop: 05/05/24 22:06 Prednisone (Prednisone 20 Mg Tab) 40 mg PO DAILY [facility] Stop: 05/08/24 08:59 Last Admin: 04/09/24 09:11 Dose: 40 mg
[2024-04-09] MEDS ORDERED: FORMOTEROL 20 MCG/2 ML VIAL NEB PRN (18:02)
[2024-04-09] MEDS ORDERED: BUDESONIDE 0.5 MG/2 ML VIAL (PULMICORT) NEB PRN (18:02)
[2024-04-09] MEDS: GABAPENTIN 300 MG CAP PO SCH (18:07)
[2024-04-10 06:37] LABS: Hematocrit (blood only) 38.5 % (37.0-47.0); Hemoglobin 12.9 g/dl (12.0-16.0); Mean Corpuscular Hemoglobin 31.5 pg (25.0-34.0); Mean Corpuscular Hgb Conc 33.5 g/dL (32.0-36.0); Mean Corpuscular Volume 93.9 fL (80.0-100.0); Mean Platelet Volume 11.5 fL (9.4-12.4); Platelet Count 100 K/uL (130-400); RDW Standard Deviation 48.1 fL (36.4-46.3); White Blood Count 5.82 K/ul (4.8-10.8)
[2024-04-10 06:46] LABS: Calcium 10.4 mg/dl (8.6-10.3); Creatinine Clr Calc Pharmacy 44.8 ml/min; Magnesium 1.9 mg/dl (1.7-2.4); Phosphorus 2.3 mg/dl (2.5-4.9)
[2024-04-10 08:13] VITALS: PULSE 97
[2024-04-10] MEDS: GABAPENTIN 300 MG CAP PO SCH (08:49)
[2024-04-10 12:18] VITALS: BP 139/93; RESP 18; TEMP 98.4; O2SAT 90
--- NOTE | 2024-04-10 14:15 | Discharge Summary ---
Date of Service April 10, 2024 Admission HPI Per Admitting Provider Patient is 58 year old female with PMH HTN, COPD, tobacco use, history drug abuse, on chronic methadone currently, history hepatitis B and C untreated, seizure disorder, fibromyalgia, depression presented to ER from [facility] 2/2 methadone overdose. She reports hx of drug abuse in the past. Hx of heroin abuse. Last used was 14 yrs ago. Since then she has been on methadone. Around Thanksgiving pt stopped taking her methadone after an interaction with her daughter. She was brought to the hospital after the [facility] gave her a full dose of her methadone 146mg after being w/o it for 14 days. Her sx started shortly after receiving the methadone. She developed SOB and significant fatigue and somnolence. When she arrived in the ED she was significant somnolent and had respiratory depression with hypercapnia. ED providers ordered IV Narcan, 1/2 dose, to be administered which improved her symptoms relatively quickly. She reports feeling much better than when she came in. She denies f/c/s, chest pain, cough, n/v/d, abd pain. She has hx of elevate calcium although pt is not aware. She denies taking Ca or Vit D supplements. She has never had a parathyroid work up. She currently denies any hx of H.I or S.I. She reports major depression which is why she is at the [facility]. She feels she has no will to live. She smokes 1ppd. She denies any alcohol use. Admission Exam Per Admitting Provider General Appearance: Thin, frail, elderly, ill-appearing, no apparent distress Head: normocephalic, Atraumatic Eyes: normal inspection, EOMI Neck: supple, Trachea midline Respiratory/Chest: Decreased breath sounds, CTA, No accessory muscle use Cardiovascular: S1, S2, No murmur Abdomen/GI:Soft, Non tender, Bowel sounds present Extremities/Musculoskeletal:normal inspection, no edema Neurologic/Psych:AAOX3, grossly no focal neurological deficits Skin: normal color, warm Principal Diagnosis Acute Hypoxic, hypercapnic respiratory failure Respiratory acidosis in setting of overdose of methadone Major Depressive disorder NGOZI Discharge Exam General Appearance: Thin, frail, elderly F on RA Head: normocephalic, Atraumatic Eyes: normal inspection, EOMI Neck: supple Respiratory/Chest: Decreased breath sounds, CTA, No accessory muscle use Cardiovascular: S1, S2, No murmur Abdomen/GI:Soft, Non tender, Bowel sounds present Extremities/Musculoskeletal:normal inspection, no edema Neurologic/Psych:AAOX3, grossly no focal neurological deficits, anxious Skin: warm, dry Discharge Data Allergies Allergy/AdvReac Type Severity Reaction Status Date / Time No Known Allergies Allergy Verified 11/02/23 21:35 Consultations 04/05/24 15:37 ED Decision to Admit Stat 04/05/24 16:23 Consult Psychiatry Routine 04/06/24 08:03 Consult Pulmonology Routine 04/06/24 10:42 Consult Fishing Rod Trimmer Routine Ordered Studies 04/06/24 09:54 CT Abdomen and Pelvis [CT abd pelvis wo con] Urgent FINDINGS: Please note that the chest CT will be reported separately. No pneumatosis, free air or portal venous gas is present. Moderate biliary ductal dilatation is similar to ultrasound of November 02, 2023. There are numerous gallstones within the gallbladder. The gallbladder is mildly distended. There may be trace pericholecystic fluid. Mild pancreatic ductal dilatation is also unchanged since prior ultrasound. There is a 3 mm left lower pole renal calculus. A left pelvic calcification favors a phlebolith although the course of the left ureter is difficult to follow. There is no hydronephrosis. No hepatic lesions are identified on unenhanced exam. There are partially calcified upper abdominal lymph nodes. There is no evidence for a bowel obstruction. Mild rectal wall thickening with mild perirectal stranding is present. There are no extraluminal gas. The bladder is distended. Avascular necrosis of the right femoral head is incidentally noted. No acute fractures within the visualized skeletal structures are present. There is a moderate amount stool within the colon. IMPRESSION: 1. No hydronephrosis. No definite ureteral calculi. 3 mm nonobstructing left renal calculus. 2. Cholelithiasis with mild gallbladder distention. If right upper quadrant pain, ultrasound is recommended. 3. No change in biliary ductal dilatation since ultrasound of November 02, 2023. This remains indeterminate and correlation with liver function tests is recommended. 4. Mild rectal wall thickening with adjacent stranding. This favors a mild nonspecific proctitis. 5. Moderate amount of stool within the colon. 6. No evidence for a bowel obstruction. CT chest diagnostic wo con Urgent ADDENDUM Addendum: Left lower lobe opacity favors atelectasis however developing aspiration pneumonitis would be difficult to exclude. Mild interlobular septal thickening suggests mild interstitial pulmonary edema. Electronically signed by: Carlos Alberto Haddad M.D. 04/06/2024 10:[address] OF THE CHEST WITHOUT IV CONTRAST CLINICAL HISTORY: aspiration pna? COMPARISON STUDY: Chest radiograph April 05, 2024. CT DOSE: 1296.83 mGy.cm TECHNIQUE: Axial images of the chest were obtained without IV contrast. Images were reviewed in the axial, sagittal, and coronal planes. IV contrast was not administered for this examination. Automated exposure control was utilized for the study. A dose lowering technique was utilized adhering to the principles of ALARA. FINDINGS: No enlarged axillary, mediastinal or hilar lymph nodes are present. The heart is mildly enlarged. There is no pericardial effusion. No pneumothorax or pleural effusion is present. The central airways are patent. No consolidation is identified. Bilateral lower lobe linear densities and groundglass opacities are present. There are also lingular and right middle lobe linear densities. No acute fractures within the bony thorax are present. Old T4 and T7 compression fractures are incidentally noted. Please note that the abdomen and pelvis CT will be reported separately. IMPRESSION: 1. Bilateral lower lobe, right middle lobe and lingular linear densities in groundglass opacities. Atelectasis is favored. No definite consolidation to suggest pneumonia or aspiration pneumonitis. 2. Mild cardiomegaly. 3. No thoracic lymphadenopathy. CT head/brain wo con Urgent FINDINGS: No acute intracranial hemorrhage, midline shift, intracranial mass, hydrocephalus, territorial ischemia or abnormal extra-axial collection. 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 Involutional changes with moderate white matter hypodensities of the cervical hemispheres favoring chronic microvascular ischemic disease. The calvarium is intact. The paranasal sinuses, mastoid air cells, and middle ear cavities are clear. IMPRESSION: 1. No acute intracranial abnormality identified. 2. Chronic posterior cerebral artery infarcts. 3. Nonspecific white matter hypodensities, likely representing chronic microvascular ischemic disease. Hospital Course (1) Hypoxia: (2) Respiratory acidosis: (3) NGOZI (acute kidney injury): (4) Elevated liver transaminase level: (5) Tobacco use: (6) Seizure disorder: (7) Hypercalcemia: Plan Patient is 58 year old female with PMH HTN, COPD, tobacco use, history drug abuse, on chronic methadone currently, history hepatitis B and C untreated, seizure disorder, fibromyalgia, depression presented to ER from [facility] 2/2 methadone overdose. Acute Hypoxic, hypercapnic respiratory failure Respiratory acidosis in setting of overdose of methadone Major Depressive disorder pt stopped methadone prior to and while at the [facility] today took a 145mg dose that resulted in hypoxia, somnolence, lethargy which prompted ER eval s/p IV narcan 0.2mg which improved sx VBG ph 7.2, pCO2 60 - protecting airway and no longer somnolent on admission 04/06 repeat VBGs not improved overnight and so pt on Bipap, received narcan overnight x2, also started treatment with zosyn and solumedrol - airline flight attendant discussed w/ icu on Bipap. She is arousable and can tell me she is in the hospital However VBG not improved - pulm. / icu aware -> stat ABG obtained and pt was transferred from ED to ICU 04/07 Pt in ICU on narcan drip, stopped at 10 pm last night. Also, off bipap, currently on NC. She is awake, alert, answers appropriately. Overall feels well. Plan to transfer out of ICU. 04/08 Pt is on RA, no difficulty breathing. Cr normalized as well. Denies any complaints besides anxiety, and lack of sleep 04/09 Improved sleep w/ mirtazapine. However, continues to be anxious. Psychiatry involved. 04/10 Much less anxious, and medically doing well, breathing on RA without any difficulty. Some loose stools reported. good appetite. Depression, hx of methadone use On admission - Pt denies SI or HI, placed on suicide checks and prn one-to-one Psychiatry consulted will hold methadone for now, encourage pt to discontinue use, she wishes to taper down, will need to be re evaluated once acidosis resolves Per psychiatry - Antidepressant medication can be resumed when she returns to facility. Plan to Return to [facility] upon discharge 04/08 Pt very anxious today, psychiatry asked to evaluate the patient and help with meds, appreciate their input 04/09 Sleep improved w/ mirtazapine. Continues to be anxious, feels she is withdrawing. Psychiatry involved. 04/10 Less anxious, wishes to return back to [facility]. Plan to Dc to [facility]. Pt now interested in methadone again - discussed w/ psychiatry - will not restart methadone here - can discuss w/ providers at [facility]. Per RN - counselor Kyle from [facility] is reachable at [phone]. can discuss about continuing her Methadone. He will be the one continuing her script. Possible CAP, possible aspiration CXR: Mild patchy bibasilar and right upper lung opacities may represent a mild infectious or inflammatory pneumonitis. Pt is w/o cough, fever, leukocytosis on admission and so at that time abx not started Pt's resp. status worsened overnight, received solumdrol and zosyn , as above Now abx stopped by icu/pulm provider, will cont. to monitor NGOZI - resolved baseline cr 1.0 Cr 1.6 on admission, lisinopril on hold, gentle IVF avoid nephrotoxic agents Following day Cr 1.86 - Nephrology consulted Current Cr improved 0.9 Hypercalcemia noted in past obtain PTH, vit d level, tsh level previously dx with primary hyperparathyroidism -pt unaware and never had further work up Nephrology consulted - Started her on David trial which should continue at discharge. Discharge Ernesto on chart. Possible primary hyperparathyroidism, which we will work up as an outpatient. NEPHRO D/C RECS -d/c on calcitriol above -hopsital d/c appt 40 min w/in a month w/ any physician provider in [facility] for w/u of HPTH w/in a month of d/c -labs for neph visit to be ordered by neph nurse >> urorisk (24 hr urine), PTH, 25 OHD, bmp, ionized calcium, cbc, phos, ACR, UACM -will f/u pending PTHrp (send out) as OP -continue IV fluids as feasible Hx of Hep B and C un treated Elevated transaminitis no abd complaints repeated - trending down consider US Tobacco abuse: encourage cessation, nicotine patch Seizure d/o: continue lamictal and keppra Total Time Total Time Spent Total Time Spent (In Minutes): 40 Discharge Plan Discharge Items Patient Disposition: Transfer [facility] Reason For Visit: METHADONE OVERDOSE, NGOZI, PNA Discharge Diagnosis: Acute Hypoxic, hypercapnic respiratory failure Respiratory acidosis in setting of overdose of methadone Major Depressive disorder NGOZI Activity: Per Instructions section Non-emergency contact: Primary Care Provider, Specialist and Psychiatrist Call non-emergency contact if: you have any medication questions and your symptoms worsen Follow-up/Referrals: Marcelina Bird [Primary Care Provider] - Diet: Regular Addtl Attending Provider Instructions: Patient to be transferred back to [facility] for further treatment. Patient was seen by nephrology (kidney doctor) while at [facility] for elevated calcium level - started on calcitriol. Need to further follow up as outpatient for further work up. Patient was also seen by psychiatry. Hydroxyzine prn was added for anxiety and mirtazapine was added for insomnia. Pending Studies at Discharge: No Stand-Alone Forms: [facility] Skilled Items DNR: No Lines: None Urinary Catheter: No Medications and DC Order Prescriptions: New calcitriol 0.25 mcg Capsule 0.25 mcg PO QAM Qty: 30 0RF hydroxyzine HCl 25 mg Tablet 50 mg PO Q8H PRN (Reason: anxiety) Qty: 14 0RF mirtazapine 15 mg Tablet 15 mg PO HS Qty: 7 0RF Continued gabapentin 600 mg tablet 600 mg PO TID levetiracetam 500 mg tablet 500 mg PO BID lamotrigine 25 mg tablet 75 mg PO QAM lisinopril 40 mg tablet 40 mg PO DAILY lamotrigine 100 mg tablet 100 mg PO HS amlodipine 5 mg tablet 5 mg PO DAILY Held methadone 146 mg PO DIRECTED Hold Instructions: Resume on 04/17/24. Discuss with your health care providers if/ when you should resume methadone. Rx Instructions: Pt takes 146 mg methadone concentrate PO as directed Discharge Orders: Discharge Order (Routine); Ordered 04/10/24 Ordered By: Abdulaziz Pickard Admission Data Admit Date/Time: 04/05/24 15:43 Attending Provider: Abdulaziz Pickard Admit Provider: Luisito Ang Primary Care Provider: Marcelina Bird Other Providers: Kenan Treviño; Luisito Ang; Tiffanie Sykes; Justin Martins; Estee Thurston; Valeria Anderson; Gen Cartagena; Elo Liriano
== END 2024-04-10 17:17 | DRG 189 ==
LOC: ED 13:30 → EDINP 15:43 → SUATTDRO 15:43 → 1E 22:08 → 4W 04-07 21:19

== ENCOUNTER 2024-04-16 11:26 | Inpatient (IN) ==
--- NOTE | 2024-04-16 11:57 | Emergency Department Note ---
Impression & Plan Acute hypoxic respiratory failure, Fall, Fracture of shoulder ED Provider Note NAME: LIZZETH LOPEZ AGE: 58 SEX: F : 1965 ARRIVES VIA: Ambulance INFORMANT: Patient ED PROVIDER(S): Morgan Rodriguez DO CHIEF COMPLAINT: Right shoulder pain HPI: Patient is a 56-year-old female who presents to the ER with a past medical history of anxiety, narcotic overdose for falling around 3 AM in the morning. She notes she got up and lost her balance and fell. She is not dizzy or lightheaded. She denies hitting her head. She notes she fell onto her right shoulder. This occurred at the [facility]. She was brought in by EMS for evaluation. She was found to be hypoxic. Denies any headache or neck pain. No chest pain or shortness of breath. No belly pain. No other exacerbating or remitting factors. ADDITIONAL HISTORY OBTAINED: Per HPI Chronic Medical/Social Conditions Affecting Care: Per HPI PAST MEDICAL HISTORY:See Below PAST SURGICAL HISTORY:See Below FAMILY HISTORY:See Below SOCIAL HISTORY:See Below HOME MEDICATIONS:See Below ALLERGIES:See Below VITALS:See Below PHYSICAL EXAMINATION: GENERAL: Laying in bed on nasal cannula. Awakens to loud voice and the light sternal rub. Falls asleep midsentence. HEAD: normal cephalic, atraumatic EYE EXAM: normal conjunctiva, PERRL and EOM's grossly intact OROPHARYNX: no exudate, no erythema, lips, buccal mucosa, and tongue normal and mucous membranes are moist NECK: supple, no nuchal rigidity, no adenopathy, non-tender CHEST: stable to compression anteriorly and posteriorly LUNGS: clear to auscultation. Normal chest wall mechanics HEART: no murmurs, S1 normal and S2 normal ABDOMEN: abdomen soft, non-tender, normo-active bowel sounds, no masses, no rebound or guarding. PELVIS: stable to compression anteriorly and posteriorly BACK: Back is symmetrical on inspection and there is no deformity, no midline tenderness, no CVA tenderness. UPPER EXTREMITIES: Flexion-extension left shoulder elbow wrist and wrist intact without tenderness in the entire left upper extremity. Tenderness over the right humeral head. No tenderness throughout the distal humerus forearm wrist or hand. Radial pulse 2 out of 4. LOWER EXTREMITIES: full active and passive range of motion of all joints without tenderness to palpation NEURO EXAM: Oriented person place and time, cranial nerves II-XII grossly intact, normal speech, no gross weakness of arms, no gross weakness of legs. GCS: 15. MEDICAL DECISION MAKING: Patient is a 58-year-old female who presents ER for the above-stated complaint. IV was established and blood work was obtained. Labs show leukopenia 4000. No significant anemia. Platelets were low at 100. VBG with a pH of 7.2 and a CO2 slightly elevated at 59. BMP was fairly unremarkable. LFTs consistently elevated at 100. Troponin was negative. Patient upon arrival was found to be hypoxic. She falls asleep quickly and difficult to stay awake. She does appear to be overmedicated. She was placed on 2 L nasal cannula. Chest x-ray was clean. X-ray of the shoulder shows a right shoulder fracture. She was placed in a sling and this was discussed with orthopedics. CT of the head was negative. Case discussed with the hospitalist and she was admitted for further workup. When awake she is oriented to person place or time and very agitated complaining that she needs more pain meds. She was given Toradol. She did adamantly denies any neck pain, tingling numbness or weakness in the arms or legs. Consults/Care Managements Discussions: Per MDM Triage Nursing notes reviewed. Limited review of prior medical records performed Vital Signs: reviewed and remarkable for hypoxic on 2 L nasal cannula Differential diagnosis: Differential diagnoses includes but is not limited to pneumonia, bronchitis, COPD/Asthma exacerbation, pneumothorax, pulmonary embolism, congestive heart failure, acute coronary syndrome ER treatment provided: See below Diagnostics interpreted by me include EKG and cardiac monitoring as listed below: -Cardiac Monitoring: An order was placed for continuous cardiac monitoring. The monitor shows a rate of 90 with sinus rhythm. -ECG: Sinus rhythm rate 81 Normal axis No PVCs QTc 441 -Laboratory studies:Interpreted by me as stated above in MDM and shown below. Imaging studies: Xrays: As interpreted by me: X-ray of the right shoulder show a humeral neck fracture Chest x-ray shows no focal infiltrate CTs show: CT head was negative per radiology Procedures:none Critical Care: I have personally spent 35 minutes of critical care time in the direct management of this patient. This includes bedside care, interpretation of diagnostic studies, and testing, discussion with consultants, patient, and family members, and other required patient management activities. This 35 minutes is in excess of all separately billable procedures. Past Med/Surg History Problem List (Updated 04/16/24 @ 16:58 by Morgan Rodriguez, DO) Fracture of shoulder (Acute) Fall (Acute) Acute hypoxic respiratory failure (Acute) Shoulder fracture, right Unwitnessed fall COPD (chronic obstructive pulmonary disease) Insomnia Anxiety MDD (major depressive disorder), recurrent episode Thrombocytopenia Acute exacerbation of COPD with asthma Hypercalcemia Elevated liver transaminase level (Acute) NGOZI (acute kidney injury) (Acute) Respiratory acidosis Hypoxia Nausea & vomiting Biliary obstruction Suicidal ideation (Acute) Frequent PVCs (Acute) Bradycardia (Acute) Narcotic overdose (Acute) Medical History Hepatitis h/o hep B & C both untreated History of drug abuse COPD (chronic obstructive pulmonary disease) Tobacco use Seizure disorder Hypertension Depression CVA (cerebral vascular accident) Hypertension Surgical History Hx of tubal ligation Family History Other Diabetes Heart disease Social History Smoking Status: Current every day smoker Tobacco Type: Cigarettes Cigarettes Per Day: 1 pk/day; Second Hand Exposure: No; Do You Dip or Chew Tobacco: No; Tobacco Cessation Education Requested by Patient: No Hx Alcohol Use: No Hx Substance Use: No Preferred Language: Kiswahili Communication Ability: Effective Insurance Plan Specialist Required: No Beliefs That Will Affect Care: None Current Living Situation: Rehab Other Information That Helps Us Care for You: No Feels Safe at Home: Yes Safety Concerns: Feels Safe At This Time Assistive Devices: Other Assistive Devices Comment: sling on right arm Allergies Allergies Allergy/AdvReac Type Severity Reaction Status Date / Time No Known Allergies Allergy Verified 11/02/23 21:35 Home Meds Home Medications Medication Instructions Recorded Confirmed gabapentin 600 mg tablet 600 mg PO TID 11/02/23 04/16/24 lamotrigine 100 mg tablet 100 mg PO HS 11/02/23 04/16/24 lamotrigine 25 mg tablet 75 mg PO QAM 11/02/23 04/16/24 levetiracetam 500 mg tablet 500 mg PO BID 11/02/23 04/16/24 lisinopril 40 mg tablet 40 mg PO DAILY 11/02/23 04/16/24 amlodipine 5 mg tablet 5 mg PO DAILY 11/03/23 04/16/24 atomoxetine 10 mg capsule 10 mg PO DAILY 04/16/24 04/16/24 hydroxyzine HCl 25 mg tablet 100 mg PO HS PRN anxiety 04/16/24 04/16/24 methadone 10 mg tablet 40 mg PO DAILY 04/16/24 04/16/24 mirtazapine 15 mg tablet 7.5 mg PO HS 04/16/24 04/16/24 multivitamin 1 tab PO DAILY 04/16/24 04/16/24 nicotine 21 mg/24 hr daily 1 patch transdermal DAILY 04/16/24 04/16/24 transdermal patch Previous Rx's Medication Instructions Recorded calcitriol 0.25 mcg capsule 0.25 mcg PO QAM #30 caps 04/10/24 Results & Data (ED) Vital Signs Vital Signs - 24 hr 04/16/24 11:19 04/16/24 11:20 04/16/24 11:41 Temperature 37.2 C Temperature Source Oral Pulse Rate 83 88 Pulse Rate [Apical] Pulse Rhythm Regular Pulse Rhythm [Apical] Pulse Strength Normal Respiratory Rate 15 14 Respiratory Effort / Characteristics Non-Labored Spontaneous Non-Labored Spontaneous Respiratory Depth Normal Normal Respiratory Pattern Regular Regular Blood Pressure 107/80 Blood Pressure [Left Arm] Blood Pressure Mean 89 Blood Pressure Mean [Left Arm] Blood Pressure Position Lying Blood Pressure Position [Left Arm] Pulse Oximetry 84 L 94 Oxygen Delivery Method Room Air Nasal Cannula Oxygen Flow Rate 4 Sepsis Recent Fever Within 48 Hours No Sepsis New/Unexplained Change in Mental Status No Sepsis Action Taken by Nursing No Action Required 04/16/24 12:11 04/16/24 13:01 Temperature Temperature Source Pulse Rate 78 Pulse Rate [Apical] 73 Pulse Rhythm Regular Pulse Rhythm [Apical] Regular Pulse Strength Respiratory Rate 20 14 Respiratory Effort / Characteristics Non-Labored Spontaneous Respiratory Depth Normal Respiratory Pattern Regular Blood Pressure Blood Pressure [Left Arm] 98/66 L Blood Pressure Mean Blood Pressure Mean [Left Arm] 76 Blood Pressure Position Blood Pressure Position [Left Arm] Lying Pulse Oximetry 96 97 Oxygen Delivery Method Nasal Cannula Nasal Cannula Oxygen Flow Rate 4 4 Sepsis Recent Fever Within 48 Hours Sepsis New/Unexplained Change in Mental Status Sepsis Action Taken by Nursing Laboratory Data 04/16/24 12:05 04/16/24 12:05 Lab Results 04/16/24 Range/Units 12:05 WBC 4.15 L (4.8-10.8) K/ul RBC 3.83 L (4.20-5.40) M/uL Hgb 12.0 (12.0-16.0) g/dl Hct 37.7 (37.0-47.0) % MCV 98.4 (80.0-100.0) fL MCH 31.3 (25.0-34.0) pg MCHC 31.8 L (32.0-36.0) g/dL RDW Std Deviation 51.8 H (36.4-46.3) fL RDW Coeff of Sol 14.3 (11.5-14.5) % Plt Count 100 L (130-400) K/uL MPV 11.5 (9.4-12.4) fL Immature Gran % (Auto) 0.2 % Neut % (Auto) 55.5 % Lymph % (Auto) 21.7 % Imperial % (Auto) 20.2 % Eos % (Auto) 2.2 % Baso % (Auto) 0.2 % Neut # (Auto) 2.30 (1.40-6.50) K/uL Lymph # (Auto) 0.90 L (1.20-3.40) K/uL Imperial # (Auto) 0.84 H (0.11-0.59) K/uL Eos # (Auto) 0.09 (0.00-0.50) K/uL Baso # (Auto) 0.01 (0.00-0.20) K/uL Immature Gran # (Auto) 0.01 (0.01-0.20) K/uL VBG pH 7.26 L (7.36-7.41) VBG pCO2 59 H (38-50) mmHg VBG pO2 57 mmHg VBG HCO3 27 mmol/L VBG O2 Saturation 88.9 % VBG Base Excess -1.4 mEq/L Sodium 139 (136-145) mmol/L Potassium 4.3 (3.5-5.1) mmol/L Chloride 109 H (98-107) mmol/L Carbon Dioxide 27 (21-32) mmol/L Anion Gap 3 (3-11) BUN 42 H (6-23) mg/dl Creatinine 1.17 (0.6-1.2) mg/dl Est Cr Clr Drug Dosing 43.4 ml/min eGFR 54.09 BUN/Creatinine Ratio 35.9 H (10-20) Glucose 115 H (70-99(Fasting)) mg/dl Calcium 10.8 H (8.6-10.3) mg/dl Total Bilirubin 0.5 (0.2-1.0) mg/dl AST 110 H (13-39) U/L ALT 116 H (7-52) U/L Alkaline Phosphatase 213 H (34-104) U/L Troponin I High Sens 4.8 (0-14) pg/ml Total Protein 7.5 (6.0-8.3) gm/dl Albumin 3.8 (3.4-5.0) gm/dl Globulin 3.7 (2.5-4.0) gm/dl Albumin/Globulin Ratio 1.0 (0.9-2) Lipase 387 H (11-82) U/L Administered Medications Acetaminophen (Acetaminophen 500 Mg Tab) 1,000 mg PO Q8H CASIE Stop: 05/16/24 14:29 Last Admin: 04/16/24 16:26 Dose: 1,000 mg Documented By: SEK Discontinued Medications Ketorolac Tromethamine (Ketorolac Tromethamine 15 Mg/Ml Vial) 10 mg IV NOW ONE Stop: 04/16/24 13:02 Last Admin: 04/16/24 13:59 Dose: 10 mg Documented By: [facility] Imaging Data Radiologist's Impression: Head CT 04/16/24 11:52 CT OF THE HEAD WITHOUT CONTRAST CLINICAL HISTORY: fall COMPARISON STUDY: Head CT April 06, 2024. CT DOSE: 1499.97 mGy.cm TECHNIQUE: Helical axial images of the head were obtained without IV contrast. Automated exposure control was utilized for the study. A dose lowering technique was utilized adhering to the principles of ALARA. FINDINGS: No acute intracranial hemorrhage, midline shift or mass effect is present. The ventricular system is stable. White matter hypodensities are unchanged and favor small vessel disease. Bilateral parietooccipital encephalomalacia is again noted. The basal cisterns are patent. No extra-axial collections are present. There are no findings to suggest acute dural sinus thrombosis or acute territorial infarct. No significant calvarial abnormalities are present. Visualized portions of the sinuses and mastoid air cells are clear. IMPRESSION: 1. No acute intracranial findings. No change in appearance of the brain. 2. No calvarial fractures. ACT 112: Negative or not required by law. Electronically signed by: Carlos Alberto Haddad M.D. 04/16/2024 1:18 PM Shoulder X-Ray 04/16/24 11:52 XR shoulder RT min 2V routine CLINICAL HISTORY: Fall. Right shoulder pain. COMPARISON: Chest radiograph April 05, 2024 FINDINGS: There is an acute mildly displaced transverse right humeral neck fracture. Fracture extends into the humeral head. Alignment of the right acromioclavicular and glenohumeral joints is anatomic. There are no additional fractures. IMPRESSION: Acute mildly displaced transverse right humeral neck fracture which slightly extends into the humeral head. ACT 112: Negative or not required by law. Electronically signed by: Carlos Alberto Haddad M.D. 04/16/2024 12:48 PM Chest X-Ray 04/16/24 11:53 XR chest 1V portable CLINICAL HISTORY: Chest pain, nonspecific COMPARISON STUDY: Chest radiograph April 05, 2024. Chest CT April 06, 2024. FINDINGS: An acute mildly displaced right humeral neck fracture is better depicted on the right shoulder radiographs. There is no pneumothorax or pleural effusion. Linear left lower lung densities favor atelectasis or scarring. There is no consolidation to suggest pneumonia. Cardiomediastinal silhouette is stable. IMPRESSION: 1. No acute cardiopulmonary findings. 2. Acute mildly displaced right humeral neck fracture. ACT 112: Negative or not required by law. Electronically signed by: Carlos Alberto Haddad M.D. 04/16/2024 12:47 PM Discharge Plan Visit Data Chief Complaint: Shoulder Pain Stated Complaint: SHOULDER PAIN ED Provider: Morgan Rodriguez Discharge Problem: Acute hypoxic respiratory failure, Fall, Fracture of shoulder Patient Disposition: Admitted As Inpatient Discharge Instructions Interventions: ED Discharge Assessment Last Done: 04/16/24 14:08 Discharge Problem: Fall Qualifiers: Encounter type: initial encounter Qualified Code(s): W19.XXXA - Unspecified fall, initial encounter Fracture of shoulder Qualifiers: Encounter type: initial encounter Fracture type: closed Laterality: right Q ualified Code(s): S42.91XA - Fracture of right shoulder girdle, part unspecified, initial encounter for closed fracture
[2024-04-16 12:21] LABS: Base Excess VBG -1.4 mEq/L; HCO3 VBG 27 mmol/L; Oxygen Saturation VBG 88.9 %; PCO2 VBG 59 mmHg (38-50); PO2 VBG 57 mmHg; pH VBG 7.26 (7.36-7.41)
[2024-04-16 12:35] LABS: Basophils # (auto) 0.01 K/uL (0.00-0.20); Basophils % (auto) 0.2 %; Eosinophils # (auto) 0.09 K/uL (0.00-0.50); Eosinophils % (auto) 2.2 %; Hematocrit (blood only) 37.7 % (37.0-47.0); Immature Granulocytes # (auto) 0.01 K/uL (0.01-0.20); Immature Granulocytes % (auto) 0.2 %; Lymphocytes % (auto) 21.7 %; Mean Corpuscular Hemoglobin 31.3 pg (25.0-34.0); Mean Corpuscular Hgb Conc 31.8 g/dL (32.0-36.0); Mean Corpuscular Volume 98.4 fL (80.0-100.0); Mean Platelet Volume 11.5 fL (9.4-12.4); Monocytes # (auto) 0.84 K/uL (0.11-0.59); Monocytes % (auto) 20.2 %; Neutrophils % (auto) 55.5 %; Platelet Count 100 K/uL (130-400); RDW Coefficient of Variation 14.3 % (11.5-14.5); RDW Standard Deviation 51.8 fL (36.4-46.3); Red Blood Count 3.83 M/uL (4.20-5.40); White Blood Count 4.15 K/ul (4.8-10.8)
[2024-04-16 12:44] LABS: Albumin Level 3.8 gm/dl (3.4-5.0); BUN Creatinine Ratio 35.9 (10-20); Bilirubin,Total 0.5 mg/dl (0.2-1.0); Calcium 10.8 mg/dl (8.6-10.3); Creatinine Clr Calc Pharmacy 43.4 ml/min; Globulin 3.7 gm/dl (2.5-4.0); Potassium 4.3 mmol/L (3.5-5.1); Total Protein 7.5 gm/dl (6.0-8.3)
--- NOTE | 2024-04-16 12:48 | XRay Report ---
XR chest 1V portable CLINICAL HISTORY: Chest pain, nonspecific COMPARISON STUDY: Chest radiograph April 05, 2024. Chest CT April 06, 2024. FINDINGS: An acute mildly displaced right humeral neck fracture is better depicted on the right shoul ray radiographs. There is no pneumothorax or pleural effusion. Linear left lower lung densities favor atelectasis or scarring. There is no consolidation to suggest pneumonia. Cardiomediastinal silhouett e is stable. IMPRESSION: 1. No acute cardiopulmonary findings. 2. Acute mildly displaced right humeral neck fracture. ACT 112: Negative or not required by law. Electronically signed by: Carlos Alberto Haddad M.D. 04/16/2024 12:47 PM
--- NOTE | 2024-04-16 12:49 | XRay Report ---
XR shoulder RT min 2V routine CLINICAL HISTORY: Fall. Right shoulder pain. COMPARISON: Chest radiograph April 05, 2024 FINDINGS: There is an acute mildly displaced transverse right humeral neck fracture. Fracture extend s into the humeral head. Alignment of the right acromioclavicular and glenohumeral joints is anatomic . There are no additional fractures. IMPRESSION: Acute mildly displaced transverse right humeral neck fracture which slightly extends into the humeral head. ACT 112: Negative or not required by law. Electronically signed by: Carlos Alberto Haddad M.D. 04/16/2024 12:48 PM
[2024-04-16 12:50] LABS: Troponin I High Sensitivity 4.8 pg/ml (0-14)
--- NOTE | 2024-04-16 13:20 | CT Scan Report ---
CT OF THE HEAD WITHOUT CONTRAST CLINICAL HISTORY: fall COMPARISON STUDY: Head CT April 06, 2024. CT DOSE: 1499.97 mGy.cm TECHNIQUE: Helical axial images of the head were obtained without IV contrast. Automated exposure con trol was utilized for the study. A dose lowering technique was utilized adhering to the principles o f ALARA. FINDINGS: No acute intracranial hemorrhage, midline shift or mass effect is present. The ventricular system is stable. White matter hypodensities are unchanged and favor small vessel disease. Bilateral parietooccipital encephalomalacia is again noted. The basal cisterns are patent. No extra-axial colle ctions are present. There are no findings to suggest acute dural sinus thrombosis or acute territoria l infarct. No significant calvarial abnormalities are present. Visualized portions of the sinuses and mastoid air cells are clear. IMPRESSION: 1. No acute intracranial findings. No change in appearance of the brain. 2. No calvarial fractures. ACT 112: Negative or not required by law. Electronically signed by: Carlos Alberto Haddad M.D. 04/16/2024 1:18 PM
--- NOTE | 2024-04-16 13:40 | History & Physical Report ---
Date of Service April 16, 2024 Assessment & Plan (1) Unwitnessed fall: (2) Shoulder fracture, right: (3) Anxiety: (4) MDD (major depressive disorder), recurrent episode: (5) COPD (chronic obstructive pulmonary disease): (6) History of drug abuse: (7) Insomnia: Plan This is a 58-year-old female with PMH of history of drug abuse currently on methadone, MDD, anxiety, COPD, levothyroxine, seizure disorder, history hepatitis B and C untreated, insomnia and other medical problems listed below who presents from the [facility] after unwitnessed fall around 0200 and was found to have a R humeral neck fracture. Acute mildly displaced transverse right humeral neck fracture Unwitnessed fall Right humeral neck fracture Unwitnessed fall, around 0200 Right shoulder x-ray with Acute mildly displaced transverse right humeral neck fracture which slightly extends into the humeral head. Ortho consulted, NPO @ [place] for possible OR Scheduled Tylenol, lidocaine patch, current methadone dose Fall precautions History of opioid dependence, on methadone Recently admitted for methadone overdose - was temporarily held and resumed at the [facility] at reduced dose of 40mg daily Initial concern for confusion but improved by time of admission Last took this AM Continue home dose Hypoxia COPD Intermittent hypoxia noted, now saturating 98% on 2L NC VBG ph 7.26, [id number]. bicarb 27 - protecting airway, no longer lethargic Consider repeat ABG if menation changes History of intermittent O2 requirement No evidence of opacity or acute finding on CXR Wean O2 as tolerated Seizure disorder Continue lamictal and keppra - took this AM Continue home doses for now (lamictal and keppra levels pending) Tobacco use disorder Nicotine patch ordered Major Depressive disorder Continue Lamictal Was admitted at the [facility] prior to fall HTN Lisinopril 40mg recently started at the [facility] - hypotensive in ED Hold amlodipine and lisinopril for now Hx of Hep B and C untreated Elevated transaminitis No abdominal complaints CMP in AM Hypercalcemia Calcium 10.8 today, known issue from previous admission Continue calcitriol daily Insomnia Continue hydroxyzine, mirtazapine DVT ppx: SCDs Code: FULL PCP: admitted at the [facility] Dispo: admit to PCU Pt was seen and examined in collaboration with Dr. Ang, please see addendum. I spent a total of 75 minutes coordinating, documenting, and providing care for this patient excluding time spent in the performance of separately billed services. History of Present Illness Chief Complaint: Fall, unwitnessed Primary Care Provider: Marcelina Bird This is a 58-year-old female with PMH of history of drug abuse currently on methadone, MDD, anxiety, COPD, levothyroxine, seizure disorder, history hepatitis B and C untreated, insomnia and other medical problems listed below who presents from the [facility] after unwitnessed fall around 0200. Patient states she was on the toilet and fell forward, landing on her right shoulder. Denies head trauma or loss of consciousness. States she has a history of frequent falls due to neuropathy in both her feet as well as some right sided residual weakness from a former stroke. Does not use ambulatory devices at baseline. Was recently admitted at the beginning of April for methadone overdose and was discharged to the [facility]. Since then, they have resumed methadone at 40 mg daily, of which she last took at 0800 today. Having constant pain in right shoulder at the site of the fracture. Denies any fever, chills, chest pain, shortness of breath, nausea, vomiting, abdominal pain. No dysuria, diarrhea or constipation. Allergies Allergy/AdvReac Type Severity Reaction Status Date / Time No Known Allergies Allergy Verified 11/02/23 21:35 Home Medications Medication Instructions Recorded Confirmed Type gabapentin 600 mg tablet 600 mg PO TID 11/02/23 04/16/24 History lamotrigine 100 mg tablet 100 mg PO HS 11/02/23 04/16/24 History lamotrigine 25 mg tablet 75 mg PO QAM 11/02/23 04/16/24 History levetiracetam 500 mg tablet 500 mg PO BID 11/02/23 04/16/24 History lisinopril 40 mg tablet 40 mg PO DAILY 11/02/23 04/16/24 History amlodipine 5 mg tablet 5 mg PO DAILY 11/03/23 04/16/24 History calcitriol 0.25 mcg capsule 0.25 mcg PO QAM #30 caps 04/10/24 04/16/24 Rx atomoxetine 10 mg capsule 10 mg PO DAILY 04/16/24 04/16/24 History hydroxyzine HCl 25 mg tablet 100 mg PO HS PRN anxiety 04/16/24 04/16/24 History methadone 10 mg tablet 40 mg PO DAILY 04/16/24 04/16/24 History mirtazapine 15 mg tablet 7.5 mg PO HS 04/16/24 04/16/24 History multivitamin 1 tab PO DAILY 04/16/24 04/16/24 History nicotine 21 mg/24 hr daily 1 patch transdermal DAILY 04/16/24 04/16/24 History transdermal patch Past Med/Surg History Problem List (Updated 04/16/24 @ 18:48 by Lee Mcnulty MD) Fracture of neck of humerus Fracture of shoulder (Acute) Fall (Acute) Acute hypoxic respiratory failure (Acute) Shoulder fracture, right Unwitnessed fall COPD (chronic obstructive pulmonary disease) Insomnia Anxiety MDD (major depressive disorder), recurrent episode Thrombocytopenia Acute exacerbation of COPD with asthma Hypercalcemia Elevated liver transaminase level (Acute) NGOZI (acute kidney injury) (Acute) Respiratory acidosis Hypoxia Nausea & vomiting Biliary obstruction Suicidal ideation (Acute) Frequent PVCs (Acute) Bradycardia (Acute) Narcotic overdose (Acute) Medical History Hepatitis h/o hep B & C both untreated History of drug abuse Tobacco use Seizure disorder Hypertension Depression CVA (cerebral vascular accident) Hypertension Surgical History Hx of tubal ligation Family History Other Diabetes Heart disease Social History Smoking Status: Current every day smoker Tobacco Type: Cigarettes Cigarettes Per Day: 1 pk/day; Second Hand Exposure: No; Do You Dip or Chew Tobacco: No; Tobacco Cessation Education Requested by Patient: No Hx Alcohol Use: No Hx Substance Use: No Preferred Language: Taiwanese Communication Ability: Effective Customer Service Operator Required: No Beliefs That Will Affect Care: None Current Living Situation: Rehab Other Information That Helps Us Care for You: No Feels Safe at Home: Yes Safety Concerns: Feels Safe At This Time Assistive Devices: Other Assistive Devices Comment: sling on right arm Review of Systems Review of Systems: At least ten systems reviewed and negative except as noted in the HPI. Physical Exam Physical Exam: Please see Dr. Ang's addendum for physical exam. Results & Data Results & Data Vital Signs (Past 12 Hours) Vital Signs Temp Pulse Pulse Resp BP BP Pulse Ox 04/16/24 13:01 73 14 98/66 L 97 04/16/24 12:11 78 20 96 04/16/24 11:41 88 04/16/24 11:20 14 94 04/16/24 11:19 37.2 C 83 15 107/80 84 L O2 Del Method O2 Flow Rate 04/16/24 13:01 Nasal Cannula 4 04/16/24 12:11 Nasal Cannula 4 04/16/24 11:41 04/16/24 11:20 Nasal Cannula 4 04/16/24 11:19 Room Air Laboratory Results Short CBC 04/16/24 Range/Units 12:05 WBC 4.15 L (4.8-10.8) K/ul Hgb 12.0 (12.0-16.0) g/dl Hct 37.7 (37.0-47.0) % Plt Count 100 L (130-400) K/uL BMP 04/16/24 12:05 Sodium 139 Potassium 4.3 Chloride 109 H Carbon Dioxide 27 BUN 42 H Creatinine 1.17 Glucose 115 H Calcium 10.8 H Liver Function 04/16/24 Range/Units 12:05 Total Bilirubin 0.5 (0.2-1.0) mg/dl AST 110 H (13-39) U/L ALT 116 H (7-52) U/L Alkaline Phosphatase 213 H (34-104) U/L Albumin 3.8 (3.4-5.0) gm/dl Diagnostic Findings Head CT 04/16/24 11:52 CT OF THE HEAD WITHOUT CONTRAST CLINICAL HISTORY: fall COMPARISON STUDY: Head CT April 06, 2024. CT DOSE: 1499.97 mGy.cm TECHNIQUE: Helical axial images of the head were obtained without IV contrast. Automated exposure control was utilized for the study. A dose lowering technique was utilized adhering to the principles of ALARA. FINDINGS: No acute intracranial hemorrhage, midline shift or mass effect is present. The ventricular system is stable. White matter hypodensities are unchanged and favor small vessel disease. Bilateral parietooccipital encephalomalacia is again noted. The basal cisterns are patent. No extra-axial collections are present. There are no findings to suggest acute dural sinus thrombosis or acute territorial infarct. No significant calvarial abnormalities are present. Visualized portions of the sinuses and mastoid air cells are clear. IMPRESSION: 1. No acute intracranial findings. No change in appearance of the brain. 2. No calvarial fractures. ACT 112: Negative or not required by law. Electronically signed by: Carlos Alberto Haddad M.D. 04/16/2024 1:18 PM Shoulder X-Ray 04/16/24 11:52 XR shoulder RT min 2V routine CLINICAL HISTORY: Fall. Right shoulder pain. COMPARISON: Chest radiograph April 05, 2024 FINDINGS: There is an acute mildly displaced transverse right humeral neck fracture. Fracture extends into the humeral head. Alignment of the right acromioclavicular and glenohumeral joints is anatomic. There are no additional fractures. IMPRESSION: Acute mildly displaced transverse right humeral neck fracture which slightly extends into the humeral head. ACT 112: Negative or not required by law. Electronically signed by: Carlos Alberto Haddad M.D. 04/16/2024 12:48 PM Chest X-Ray 04/16/24 11:53 XR chest 1V portable CLINICAL HISTORY: Chest pain, nonspecific COMPARISON STUDY: Chest radiograph April 05, 2024. Chest CT April 06, 2024. FINDINGS: An acute mildly displaced right humeral neck fracture is better depicted on the right shoulder radiographs. There is no pneumothorax or pleural effusion. Linear left lower lung densities favor atelectasis or scarring. There is no consolidation to suggest pneumonia. Cardiomediastinal silhouette is stable. IMPRESSION: 1. No acute cardiopulmonary findings. 2. Acute mildly displaced right humeral neck fracture. ACT 112: Negative or not required by law. Electronically signed by: Carlos Alberto Haddad M.D. 04/16/2024 12:47 PM Supervising Physician Co-Signing Physician Notes Patient is a 58-year-old female with history of drug abuse, COPD, depression, fibromyalgia, seizure disorder, hepatitis C and B, on chronic methadone, tobacco use disorder, hypertension, and other medical problems presents with right shoulder pain after sustaining a fall this morning. Patient was trying to use bathroom, and suddenly felt weak and fell on her right shoulder. She denies any trauma, loss of consciousness. She admits to have multiple falls which she attributes to neuropathy in her feet. She has not been using her walker as previously suggested. She states having right shoulder pain significantly with movement but denies any change in numbness or tingling (chronic due to neuropathy). Please review HPI for complete details of presentation. I per sonally reviewed blood work and imaging studies. VBG suggestive of chronic respiratory acidosis with mild hypercarbia. Noted chronic hypercalcemia 10.8. Mild transaminitis. Lipase elevated to 387. Imaging studies suggestive of acute mildly displaced right humeral neck fracture. EKG showed normal sinus rhythm, QTc 441. Physical Exam: Vitals signs as noted above General Appearance: Thin, frail, chronic ill appearing, no apparent distress Head: normocephalic, Atraumatic Eyes: normal inspection, EOMI Neck: supple, Trachea midline Respiratory/Chest: Decreased breath sounds, basal crackles, No accessory muscle use Cardiovascular: S1, S2, No murmur Abdomen/GI:Soft, Non tender, Bowel sounds present Extremities/Musculoskeletal:normal inspection, trace pedal edema, chronic venous stasis changes, right shoulder tender, decreased range of movement due to pain Spine: Scoliosis Neurologic/Psych:AAOX3, grossly no focal neurological deficits Skin: normal color, warm Acute mildly displaced right humeral neck fracture Secondary to fall Fall precautions PT OT as able Pain control Orthopedic consulted Minimize sedative meds as able as patient already on methadone Hypercalcemia Chronic Continue calcitriol IV fluids Monitor calcium levels closely Elevated lipase levels Denies any abdominal pain Chronic thrombocytopenia Monitor platelet count I personally interviewed and examined at bedside. Patient's care is coordinated with Rosalba Whitten PA-C. I have reviewed the advanced practitioner's documentation, and I agree with plan of care. Please refer to the documentation above for details of patient's presentation and for discussion of other issues. I spent a total [id number] coordinating, documenting, and providing care for this patient excluding time spent in the performance of separately billed services.
[2024-04-16] MEDS: KETOROLAC TROMETHAMINE 15 MG/ML VIAL IV ONE ×2 (13:59→22:30)
[2024-04-16] MEDS ORDERED: POLYETHYLENE (MIRALAX) 17 GM PACK PO PRN (15:08)
[2024-04-16] MEDS ORDERED: ONDANSETRON INJ 2 MG/ML 2 ML VIAL IV PRN (15:08)
[2024-04-16] MEDS: ACETAMINOPHEN 500 MG TAB PO SCH (16:26)
--- NOTE | 2024-04-16 18:50 | Orthopedic Consultation ---
Date of Service April 16, 2024 Assessment & Plan (1) Fracture of neck of humerus: 58-year-old female with a fracture of the proximal humerus in acceptable alignment for nonoperative management. Recommend sling for comfort. Should be nonweightbearing to the right upper extremity. Range of motion as tolerated to the elbow wrist and digits. Should have repeat x-rays in approximately 2 weeks as an outpatient. She can carefully come out of the sling for hygiene and ADLs such as getting dressed. May loosen the sling and position with pillows as needed for comfort while sleeping. History of Present Illness Reason for Consultation: Right proximal humerus fracture Requesting Physician: . Attending Physician: Luisito Ang MD 58-year-old female admitted with mental status changes after a fall at her inpatient rehabilitation facility. She reports she has gotten lightheaded at times because of her blood pressure medication. This caused her fall. She thinks that is what happened when she was confused in the ER. She reports no previous injuries to her right arm or shoulder. Pain is isolated to the proximal arm. She denies any numbness or tingling. Pain is tolerable right now. Allergies Allergy/AdvReac Type Severity Reaction Status Date / Time No Known Allergies Allergy Verified 11/02/23 21:35 Home Medications Medication Instructions Recorded Confirmed Type gabapentin 600 mg tablet 600 mg PO TID 11/02/23 04/16/24 History lamotrigine 100 mg tablet 100 mg PO HS 11/02/23 04/16/24 History lamotrigine 25 mg tablet 75 mg PO QAM 11/02/23 04/16/24 History levetiracetam 500 mg tablet 500 mg PO BID 11/02/23 04/16/24 History lisinopril 40 mg tablet 40 mg PO DAILY 11/02/23 04/16/24 History amlodipine 5 mg tablet 5 mg PO DAILY 11/03/23 04/16/24 History calcitriol 0.25 mcg capsule 0.25 mcg PO QAM #30 caps 04/10/24 04/16/24 Rx atomoxetine 10 mg capsule 10 mg PO DAILY 04/16/24 04/16/24 History hydroxyzine HCl 25 mg tablet 100 mg PO HS PRN anxiety 04/16/24 04/16/24 History methadone 10 mg tablet 40 mg PO DAILY 04/16/24 04/16/24 History mirtazapine 15 mg tablet 7.5 mg PO HS 04/16/24 04/16/24 History multivitamin 1 tab PO DAILY 04/16/24 04/16/24 History nicotine 21 mg/24 hr daily 1 patch transdermal DAILY 04/16/24 04/16/24 History transdermal patch Past Med/Surg History Problem List (Updated 04/16/24 @ 18:48 by Lee Mcnulty MD) Fracture of neck of humerus Fracture of shoulder (Acute) Fall (Acute) Acute hypoxic respiratory failure (Acute) Shoulder fracture, right Unwitnessed fall COPD (chronic obstructive pulmonary disease) Insomnia Anxiety MDD (major depressive disorder), recurrent episode Thrombocytopenia Acute exacerbation of COPD with asthma Hypercalcemia Elevated liver transaminase level (Acute) NGOZI (acute kidney injury) (Acute) Respiratory acidosis Hypoxia Nausea & vomiting Biliary obstruction Suicidal ideation (Acute) Frequent PVCs (Acute) Bradycardia (Acute) Narcotic overdose (Acute) Medical History Hepatitis h/o hep B & C both untreated History of drug abuse Tobacco use Seizure disorder Hypertension Depression CVA (cerebral vascular accident) Hypertension Surgical History Hx of tubal ligation Family History Other Diabetes Heart disease Social History Smoking Status: Current every day smoker Tobacco Type: Cigarettes Cigarettes Per Day: 1 pk/day; Second Hand Exposure: No; Do You Dip or Chew Tobacco: No; Tobacco Cessation Education Requested by Patient: No Hx Alcohol Use: No Hx Substance Use: No Preferred Language: Italian Communication Ability: Effective Firer [employer]n Required: No Beliefs That Will Affect Care: None Current Living Situation: Rehab Other Information That Helps Us Care for You: No Feels Safe at Home: Yes Safety Concerns: Feels Safe At This Time Assistive Devices: Other Assistive Devices Comment: sling on right arm Review of Systems All systems reviewed & are unremarkable except as noted in HPI & below. Physical Exam Right upper extremity: Appears comfortable but the sling is disheveled. It was reorganized and fit again. She is full unrestricted motion of her wrist and digits. She is neuro vastly intact to light touch sensation and motor th roughout. Focal tenderness of the proximal humerus, as expected. Mild edema about the deltoid. Nontender over the clavicle and AC joint. Nontender about the elbow. Constitutional WD/WN, vitals as above no acute distress and not intoxicated appearing Respiratory normal respiratory effort; no labored breathing Cardiovascular Extremities: normal capillary refill Results & Data Results & Data Laboratory Results . Diagnostic Findings Right humeral x-rays were evaluated by me. I agree with the radiologist that there is a fracture at the neck of the humerus. It is minimally displaced. PG Care Time/CCT Total # of Minutes Spent Total Time Spent with Patient: Total time spent is greater than 50% in coordination of care (as documented) at patient's floor/unit and/or counseling patient: Coding Level of Care Code 26097 IN/OBS CONSULT LVL 3,45M Diagnoses Fracture of neck of humerus S42.213A
[2024-04-16] MEDS: LIDOCAINE 5% 1 PATCH TD STA ×2 (21:28→21:53)
[2024-04-16] MEDS: levETIRAcetam 500 MG TAB PO SCH (21:29)
[2024-04-16] MEDS: lamoTRIgine 100 MG TAB PO SCH (21:29)
[2024-04-16] MEDS: MIRTAZAPINE TAB 15 MG TAB PO SCH (21:29)
[2024-04-16] MEDS: GABAPENTIN 600 MG TAB PO SCH (21:29)
[2024-04-16] MEDS: hydrOXYzine HCl 25 MG TAB PO PRN (22:29)
[2024-04-16 22:56] LABS: Phosphorus 3.6 mg/dl (2.5-4.9)
[2024-04-16] MEDS: SODIUM CHLORIDE 0.9% 1,000 ML IV ONE (23:06)
[2024-04-17] MEDS: KETOROLAC TROMETHAMINE 15 MG/ML VIAL IV PRN (04:29)
--- NOTE | 2024-04-17 05:55 | Electrocardiogram Report ---
Test Reason : Blood Pressure : */* mmHG Vent. Rate : 81 BPM Atrial Rate : 81 BPM P-R Int : 128 ms QRS Dur : 86 ms QT Int : 380 ms P-R-T Axes : 32 37 28 degrees QTcB Int : 441 ms Normal sinus rhythm Normal ECG When compared with ECG of 08-Apr-2024 06:22, Limb lead reversal is no longer present Confirmed by Boo Austin ([id number]) on 04/17/2024 5:55:43 AM Referred By: Confirmed By: Boo Austin
[2024-04-17] MEDS: lamoTRIgine 25 MG TAB PO SCH (07:58)
[2024-04-17] MEDS: ATOMOXETINE HCL 10 MG CAPSULE PO SCH (07:59)
[2024-04-17] MEDS: NICOTINE 21 MG/24 HR TDSY TD SCH (08:00)
[2024-04-17] MEDS: MULTIVITAMIN TAB PO SCH (08:00)
[2024-04-17 08:57] LABS: Hematocrit (blood only) 31.9 % (37.0-47.0); Hemoglobin 9.8 g/dl (12.0-16.0); Mean Corpuscular Hemoglobin 31.4 pg (25.0-34.0); Mean Corpuscular Hgb Conc 30.7 g/dL (32.0-36.0); Mean Corpuscular Volume 102.2 fL (80.0-100.0); Mean Platelet Volume 11.7 fL (9.4-12.4); Platelet Count 79 K/uL (130-400); RDW Coefficient of Variation 14.6 % (11.5-14.5); RDW Standard Deviation 54.1 fL (36.4-46.3); Red Blood Count 3.12 M/uL (4.20-5.40); White Blood Count 3.54 K/ul (4.8-10.8)
[2024-04-17] MEDS ORDERED: CALCITRIOL 0.25 MCG CAPSULE PO SCH (09:00)
[2024-04-17] MEDS: METHADONE HCL 10 MG TAB PO SCH ×2 (09:12→10:01)
[2024-04-17 09:18] LABS: Albumin Level 2.9 gm/dl (3.4-5.0); BUN Creatinine Ratio 35.7 (10-20); Bilirubin,Total 0.4 mg/dl (0.2-1.0); Calcium 10.1 mg/dl (8.6-10.3); Creatinine Clr Calc Pharmacy 35.5 ml/min; Magnesium 2.1 mg/dl (1.7-2.4); Potassium 5.2 mmol/L (3.5-5.1); Total Protein 5.8 gm/dl (6.0-8.3)
--- NOTE | 2024-04-17 09:21 | Hospitalist Progress Note ---
Date of Service April 17, 2024 Assessment & Plan (1) Shoulder fracture, right: Plan: X-ray was reviewed which showed a minimally displaced right proximal humeral fracture, seen by orthopedics, no surgical intervention and continue with immobilization with sling. Adjust pain control. (2) Unwitnessed fall: Plan: Patient reports poor balance and gait abnormality, PT OT evaluation is underway. (3) COPD (chronic obstructive pulmonary disease): Plan: Clinically stable, continue to monitor and treat as needed. (4) Seizure disorder: Plan: Clinically stable, no report of any seizure in the hospital, continue with Lamictal, Keppra. (5) MDD (major depressive disorder), recurrent episode: Plan: Patient is on atomoxetine and gabapentin, I have reviewed the last psychiatric note, psychiatry is on consult. Will review if there is any new input. Plan continue with current's, adjust pain control, psychiatry consult. PT and OT and case management consult for possible need for rehabilitation. Admission and Anticipated Discharge Date Admission Date: April 16, 2024 Subjective Patient is a 58-year-old female who was admitted to the hospital after a unwitnessed fall resulted in a right humeral fracture, patient has underlying anxiety disorder, major depression, COPD and history of chronic back pain for which she is on methadone. Patient was seen by orthopedics and recommended immobilization with sling which patient was put on. Patient was seen and examined, she was complaining of her pain being uncontrolled. Physical Exam Physical Exam: VITALS: Reviewed. WEIGHT/BMI reviewed. GEN: Healthy appearing, well-developed, NAD. CV: RRR, no m/r/g. LUNGS: CTAB, no w/r/c. ABD: Soft, NT/ND, NBS, no masses or organomegaly. SKIN: Warm, well perfused. No skin rashes or abnormal lesions. MSK: Right upper extremity in sling Results & Data Results & Data Vital Signs (Past 12 Hours) Vital Signs Temp Pulse Pulse Resp BP Pulse Ox O2 Del Method 04/17/24 07:14 36.8 C 88 16 119/77 96 Nasal Cannula 04/17/24 02:42 36.9 C 71 18 106/64 94 Nasal Cannula 04/16/24 22:49 36.8 C 82 18 116/70 92 Room Air Laboratory Results Laboratory Results - last 24 hr 04/16/24 04/17/24 12:05 08:26 WBC 4.15 L 3.54 L RBC 3.83 L 3.12 L Hgb 12.0 9.8 L Hct 37.7 31.9 L MCV 98.4 102.2 H MCH 31.3 31.4 MCHC 31.8 L 30.7 L RDW Std Deviation 51.8 H 54.1 H RDW Coeff of Sol 14.3 14.6 H Plt Count 100 L 79 L MPV 11.5 11.7 Immature Gran % (Auto) 0.2 Neut % (Auto) 55.5 Lymph % (Auto) 21.7 [place] % (Auto) 20.2 Eos % (Auto) 2.2 Baso % (Auto) 0.2 Neut # (Auto) 2.30 Lymph # (Auto) 0.90 L [place] # (Auto) 0.84 H Eos # (Auto) 0.09 Baso # (Auto) 0.01 Immature Gran # (Auto) 0.01 VBG pH 7.26 L VBG pCO2 59 H VBG pO2 57 VBG HCO3 27 VBG O2 Saturation 88.9 VBG Base Excess -1.4 Sodium 139 Pending Potassium 4.3 Pending Chloride 109 H Pending Carbon Dioxide 27 Pending Anion Gap 3 Pending BUN 42 H Pending Creatinine 1.17 Pending Est Cr Clr Drug Dosing 43.4 Pending eGFR 54.09 Pending BUN/Creatinine Ratio 35.9 H Pending Glucose 115 H Pending Calcium 10.8 H Pending Phosphorus 3.6 Magnesium Pending Total Bilirubin 0.5 Pending Direct Bilirubin Pending AST 110 H Pending ALT 116 H Pending Alkaline Phosphatase 213 H Pending Troponin I High Sens 4.8 Total Protein 7.5 Pending Albumin 3.8 Pending Globulin 3.7 Albumin/Globulin Ratio 1.0 Lipase 387 H PTH Intact Pending Lamotrigine Pending Levetiracetam Pending Diagnostic Findings Head CT 04/16/24 11:52 CT OF THE HEAD WITHOUT CONTRAST CLINICAL HISTORY: fall COMPARISON STUDY: Head CT April 06, 2024. CT DOSE: 1499.97 mGy.cm TECHNIQUE: Helical axial images of the head were obtained without IV contrast. Automated exposure control was utilized for the study. A dose lowering technique was utilized adhering to the principles of ALARA. FINDINGS: No acute intracranial hemorrhage, midline shift or mass effect is present. The ventricular system is stable. White matter hypodensities are unchanged and favor small vessel disease. Bilateral parietooccipital encephalomalacia is again noted. The basal cisterns are patent. No extra-axial collections are present. There are no findings to suggest acute dural sinus thrombosis or acute territorial infarct. No significant calvarial abnormalities are present. Visualized portions of the sinuses and mastoid air cells are clear. IMPRESSION: 1. No acute intracranial findings. No change in appearance of the brain. 2. No calvarial fractures. ACT 112: Negative or not required by law. Electronically signed by: Carlos Alberto Haddad M.D. 04/16/2024 1:18 PM Shoulder X-Ray 04/16/24 11:52 XR shoulder RT min 2V routine CLINICAL HISTORY: Fall. Right shoulder pain. COMPARISON: Chest radiograph April 05, 2024 FINDINGS: There is an acute mildly displaced transverse right humeral neck fracture. Fracture extends into the humeral head. Alignment of the right acromioclavicular and glenohumeral joints is anatomic. There are no additional fractures. IMPRESSION: Acute mildly displaced transverse right humeral neck fracture which slightly extends into the humeral head. ACT 112: Negative or not required by law. Electronically signed by: Carlos Alberto Haddad M.D. 04/16/2024 12:48 PM Chest X-Ray 04/16/24 11:53 XR chest 1V portable CLINICAL HISTORY: Chest pain, nonspecific COMPARISON STUDY: Chest radiograph April 05, 2024. Chest CT April 06, 2024. FINDINGS: An acute mildly displaced right humeral neck fracture is better depicted on the right shoulder radiographs. There is no pneumothorax or pleural effusion. Linear left lower lung densities favor atelectasis or scarring. There is no consolidation to suggest pneumonia. Cardiomediastinal silhouette is stable. IMPRESSION: 1. No acute cardiopulmonary findings. 2. Acute mildly displaced right humeral neck fracture. ACT 112: Negative or not required by law. Electronically signed by: Carlos Alberto Haddad M.D. 04/16/2024 12:47 PM Medications Administered Current Inpatient Medications Acetaminophen (Acetaminophen 500 Mg Tab) 1,000 mg PO Q8H [facility] Stop: 05/16/24 14:29 Last Admin: 04/17/24 05:53 Dose: 1,000 mg Atomoxetine HCl (Atomoxetine Hcl 10 Mg Capsule) 10 mg PO DAILY [facility] Stop: 05/17/24 08:59 Last Admin: 04/17/24 07:59 Dose: 10 mg Gabapentin (Gabapentin 600 Mg Tab) 600 mg PO TID [facility] Stop: 05/16/24 20:59 Last Admin: 04/17/24 07:59 Dose: 600 mg Hydroxyzine HCl (Hydroxyzine Hcl 25 Mg Tab) 100 mg PO HS PRN PRN Reason: anxiety Stop: 05/16/24 15:07 Last Admin: 04/16/24 22:29 Dose: 100 mg Ketorolac Tromethamine (Ketorolac Tromethamine 15 Mg/Ml Vial) 15 mg IV Q6H PRN PRN Reason: Pain Stop: 04/21/24 22:18 Last Admin: 04/17/24 04:29 Dose: 15 mg Lamotrigine (Lamotrigine 25 Mg Tab) 75 mg PO QAM [facility]; Protocol Stop: 05/17/24 08:59 Last Admin: 04/17/24 07:58 Dose: 75 mg Lamotrigine (Lamotrigine 100 Mg Tab) 100 mg PO HS [facility]; Protocol Stop: 05/16/24 20:59 Last Admin: 04/16/24 21:29 Dose: 100 mg Levetiracetam (Levetiracetam 500 Mg Tab) 500 mg PO BID [facility] Stop: 05/16/24 20:59 Last Admin: 04/17/24 07:59 Dose: 500 mg Methadone HCl (Methadone Hcl 10 Mg Tab) 40 mg PO DAILY [facility] Stop: 05/01/24 08:59 Last Admin: 04/17/24 09:12 Dose: 40 mg Mirtazapine (Mirtazapine Tab 15 Mg Tab) 7.5 mg PO HS [facility] Stop: 05/16/24 20:59 Last Admin: 04/16/24 21:29 Dose: 7.5 mg Miscellaneous (Remove Nicoderm Patch) 1 each N/A DAILY@0859 [facility] Stop: 05/17/24 08:58 Multivitamins (Multivitamin Tab) 1 tab PO DAILY [facility] Stop: 05/17/24 08:59 Last Admin: 04/17/24 08:00 Dose: 1 tab Nicotine (Nicotine 21 Mg/24 Hr Tdsy) 1 patch TD DAILY [facility] Stop: 05/17/24 08:59 Last Admin: 04/17/24 08:00 Dose: Not Given Ondansetron HCl (Ondansetron Inj 2 Mg/Ml 2 Ml Vial) 4 mg IV Q6H PRN PRN Reason: Nausea Stop: 05/16/24 15:07 Polyethylene Glycol (Polyethylene (Miralax) 17 Gm Pack) 17 gm PO DAILY PRN PRN Reason: Constipation Stop: 05/16/24 15:07 (1) Shoulder fracture, right Encounter type: initial encounter Fracture type: closed Qualified Code(s): S42.91XA - Fracture of right shoulder girdle, part unspecified, initial encounter for closed fracture (3) COPD (chronic obstructive pulmonary disease) Emphysema type: unspecified COPD type: emphysema Qualified Code(s): J43.9 - Emphysema, unspecified (5) MDD (major depressive disorder), recurrent episode Major depression episode severity: mild Qualified Code(s): F33.0 - Major depressive disorder, recurrent, mild
[2024-04-17 09:25] LABS: iSTAT Arterial Blood Gas HCO3 27 meg/L (19-24); iSTAT Arterial Blood Gas pCO2 60 mmHg (35-46); iSTAT Arterial Blood Gas pH 7.26 (7.35-7.45); iSTAT Arterial Blood Gas pO2 71 mmHg (80-95); iSTAT Carbon Dioxide 29 mmol/L (24-31); iSTAT Hematocrit 33 % (37-47); iSTAT Hemoglobin 11.2 g/dl (12.0-16.0); iSTAT Potassium 4.6 mmol/L (3.3-5.0); iSTAT Sodium 140 mmol/L (135-144)
[2024-04-17 23:51] LABS: Appearance Urine Clear (Clear); Bilirubin Urine Negative (Negative); Blood Urine Negative (Negative); Color Urine Yellow; Glucose Urine UA Negative (Negative); Ketones Urine Negative (Negative); Leukocyte Esterase Urine Negative (Negative); Nitrite Urine Negative (Negative); Protein Urine Negative (Negative); Specific Gravity Urine 1.019 (1.000-1.030); Urobilinogen Urine Negative (Negative)
--- NOTE | 2024-04-18 06:12 | Electrocardiogram Report ---
Test Reason : Blood Pressure : */* mmHG Vent. Rate : 74 BPM Atrial Rate : 74 BPM P-R Int : 144 ms QRS Dur : 88 ms QT Int : 406 ms P-R-T Axes : 44 29 26 degrees QTcB Int : 450 ms Sinus rhythm with occasional Premature ventricular complexes Otherwise normal ECG When compared with ECG of 16-Apr-2024 11:56, Premature ventricular complexes are now Present Confirmed by Boo Austin ([id number]) on 04/18/2024 6:12:43 AM Referred By: Marcelina Bird Confirmed By: Boo Austin
[2024-04-18 07:21] LABS: Hematocrit (blood only) 29.9 % (37.0-47.0); Hemoglobin 9.2 g/dl (12.0-16.0); Mean Corpuscular Hemoglobin 31.3 pg (25.0-34.0); Mean Corpuscular Hgb Conc 30.8 g/dL (32.0-36.0); Mean Corpuscular Volume 101.7 fL (80.0-100.0); Mean Platelet Volume 11.3 fL (9.4-12.4); Platelet Count 85 K/uL (130-400); RDW Coefficient of Variation 14.5 % (11.5-14.5); RDW Standard Deviation 54.4 fL (36.4-46.3); Red Blood Count 2.94 M/uL (4.20-5.40); White Blood Count 4.67 K/ul (4.8-10.8)
[2024-04-18 07:38] LABS: BUN Creatinine Ratio 37.5 (10-20); Creatinine Clr Calc Pharmacy 37.3 ml/min; Potassium 5.3 mmol/L (3.5-5.1)
--- NOTE | 2024-04-18 11:11 | Hospitalist Progress Note ---
Date of Service April 18, 2024 Assessment & Plan (1) Shoulder fracture, right: Plan: Continue with pain control and immobilization with sling. (2) Unwitnessed fall: Plan: Based on PT and OT evaluation, patient requires to go to inpatient rehab. Case management is on board. (3) COPD (chronic obstructive pulmonary disease): Plan: Clinically stable, continue to monitor and treat as needed. (4) Seizure disorder: Plan: Clinically stable, no report of any seizure in the hospital, continue with Lamictal, Keppra. (5) MDD (major depressive disorder), recurrent episode: Plan: Patient is on atomoxetine and gabapentin, patient has been reviewed by behavioral unit liaison. Plan Medically stable, awaiting inpatient rehab placement. Admission and Anticipated Discharge Date Admission Date: April 16, 2024 Subjective Patient is a 58-year-old female who was admitted to the hospital after a unwitnessed fall resulted in a right humeral fracture, patient has underlying anxiety disorder, major depression, COPD and history of chronic back pain for which she is on methadone. Patient was seen by orthopedics and recommended immobilization with sling which patient was put on. Patient was seen and examined, continue with pain control, seen by physical therapy and rehabilitation as inpatient was recommended, discussed with case management, case management was sent request for [facility]. Physical Exam Physical Exam: VITALS: Reviewed. GEN: Healthy appearing, well-developed, NAD. CV: RRR, no m/r/g. LUNGS: CTAB, no w/r/c. MSK: Right upper extremity in sling Results & Data Results & Data Vital Signs (Past 12 Hours) Vital Signs Temp Pulse Pulse Resp BP Pulse Ox O2 Del Method 04/18/24 08:01 36.4 C L 79 17 119/75 90 Room Air 04/18/24 03:08 36.5 C 75 16 100/66 90 Room Air 04/18/24 01:40 82 04/17/24 23:39 36.7 C 78 17 104/60 91 Nasal Cannula Laboratory Results Laboratory Results - last 24 hr 04/17/24 04/18/24 22:04 06:44 WBC 4.67 L RBC 2.94 L Hgb 9.2 L Hct 29.9 L MCV 101.7 H MCH 31.3 MCHC 30.8 L RDW Std Deviation 54.4 H RDW Coeff of Sol 14.5 Plt Count 85 L MPV 11.3 Sodium 139 Potassium 5.3 H Chloride 112 H Carbon Dioxide 27 Anion Gap 0 L BUN 51 H Creatinine 1.36 H Est Cr Clr Drug Dosing 37.3 eGFR 45.15 BUN/Creatinine Ratio 37.5 H Glucose 95 Calcium 10.0 Urine Color Yellow Urine Appearance Clear Urine pH 5.0 Ur Specific [place] 1.019 Urine Protein Negative Urine Glucose (UA) Negative Urine Ketones Negative Urine Blood Negative Urine Nitrite Negative Urine Bilirubin Negative Urine Urobilinogen Negative Ur Leukocyte Esterase Negative Medications Administered Current Inpatient Medications Acetaminophen (Acetaminophen 500 Mg Tab) 1,000 mg PO Q8H [facility] Stop: 05/16/24 14:29 Last Admin: 04/18/24 05:43 Dose: 1,000 mg Atomoxetine HCl (Atomoxetine Hcl 10 Mg Capsule) 10 mg PO DAILY [facility] Stop: 05/17/24 08:59 Last Admin: 04/18/24 09:18 Dose: 10 mg Gabapentin (Gabapentin 600 Mg Tab) 600 mg PO TID [facility] Stop: 05/16/24 20:59 Last Admin: 04/18/24 09:18 Dose: 600 mg Hydroxyzine HCl (Hydroxyzine Hcl 25 Mg Tab) 100 mg PO HS PRN PRN Reason: anxiety Stop: 05/16/24 15:07 Last Admin: 04/17/24 21:18 Dose: 100 mg Ketorolac Tromethamine (Ketorolac Tromethamine 15 Mg/Ml Vial) 15 mg IV Q6H PRN PRN Reason: Pain Stop: 04/21/24 22:18 Last Admin: 04/18/24 02:22 Dose: 15 mg Lamotrigine (Lamotrigine 25 Mg Tab) 75 mg PO QAM [facility]; Protocol Stop: 05/17/24 08:59 Last Admin: 04/18/24 09:18 Dose: 75 mg Lamotrigine (Lamotrigine 100 Mg Tab) 100 mg PO HS [facility]; Protocol Stop: 05/16/24 20:59 Last Admin: 04/17/24 21:18 Dose: 100 mg Levetiracetam (Levetiracetam 500 Mg Tab) 500 mg PO BID [facility] Stop: 05/16/24 20:59 Last Admin: 04/18/24 09:18 Dose: 500 mg Methadone HCl (Methadone Hcl 10 Mg Tab) 40 mg PO DAILY [facility] Stop: 05/01/24 08:59 Last Admin: 04/18/24 09:35 Dose: 40 mg Methadone HCl (Methadone Hcl 10 Mg Tab) 10 mg PO QAM [facility] Stop: 05/01/24 09:24 Last Admin: 04/18/24 09:35 Dose: 10 mg Mirtazapine (Mirtazapine Tab 15 Mg Tab) 7.5 mg PO HS [facility] Stop: 05/16/24 20:59 Last Admin: 04/17/24 21:18 Dose: 7.5 mg Miscellaneous (Remove Nicoderm Patch) 1 each N/A DAILY@0859 [facility] Stop: 05/17/24 08:58 Last Admin: 04/18/24 09:16 Dose: 1 each Multivitamins (Multivitamin Tab) 1 tab PO DAILY [facility] Stop: 05/17/24 08:59 Last Admin: 04/18/24 09:18 Dose: 1 tab Nicotine (Nicotine 21 Mg/24 Hr Tdsy) 1 patch TD DAILY [facility] Stop: 05/17/24 08:59 Last Admin: 04/18/24 09:18 Dose: 1 patch Ondansetron HCl (Ondansetron Inj 2 Mg/Ml 2 Ml Vial) 4 mg IV Q6H PRN PRN Reason: Nausea Stop: 05/16/24 15:07 Polyethylene Glycol (Polyethylene (Miralax) 17 Gm Pack) 17 gm PO DAILY PRN PRN Reason: Constipation Stop: 05/16/24 15:07 (1) Shoulder fracture, right Encounter type: initial encounter Fracture type: closed Qualified Code(s): S42.91XA - Fracture of right shoulder girdle, part unspecified, initial encounter for closed fracture (3) COPD (chronic obstructive pulmonary disease) COPD type: emphysema Emphysema type: unspecified Qualified Code(s): J43.9 - Emphysema, unspecified (5) MDD (major depressive disorder), recurrent episode Major depression episode severity: mild Qualified Code(s): F33.0 - Major depressive disorder, recurrent, mild
--- NOTE | 2024-04-19 00:46 | Communication Note ---
Date of Service: April 19, 2024 Notified by RN of O2 sats 70s. Patient noted to be lethargic after receiving as needed hydroxyzine for anxiety along with scheduled mirtazapine, Lamictal, gabapentin and Keppra at 9 PM. No unusual cough or SOB symptoms as per RN. VBG pH 7.24, pCO2 63 AP Encephalopathy secondary to hypercapnic respiratory failure Underlying COPD Secondary to polypharmacy BiPAP Recheck VBG Hold parameters for patient's narcotics and neuropsychotropic medications. Decrease as needed hydroxyzine dose for anxiety. Pulmonology consult if without improvement.
[2024-04-19 00:49] LABS: Base Excess VBG -1.7 mEq/L; HCO3 VBG 27 mmol/L; Oxygen Saturation VBG 93.6 %; PCO2 VBG 63 mmHg (38-50); PO2 VBG 62 mmHg; pH VBG 7.24 (7.36-7.41)
[2024-04-19 00:53] LABS: Basophils # (auto) 0.01 K/uL (0.00-0.20); Basophils % (auto) 0.3 %; Eosinophils # (auto) 0.11 K/uL (0.00-0.50); Eosinophils % (auto) 3.3 %; Hematocrit (blood only) 30.8 % (37.0-47.0); Hemoglobin 9.5 g/dl (12.0-16.0); Immature Granulocytes # (auto) 0.01 K/uL (0.01-0.20); Immature Granulocytes % (auto) 0.3 %; Lymphocytes # (auto) 0.78 K/uL (1.20-3.40); Lymphocytes % (auto) 23.6 %; Mean Corpuscular Hemoglobin 31.5 pg (25.0-34.0); Mean Corpuscular Hgb Conc 30.8 g/dL (32.0-36.0); Mean Platelet Volume 10.7 fL (9.4-12.4); Monocytes # (auto) 0.71 K/uL (0.11-0.59); Monocytes % (auto) 21.5 %; Neutrophils # (auto) 1.69 K/uL (1.40-6.50); Platelet Count 89 K/uL (130-400); RDW Coefficient of Variation 14.5 % (11.5-14.5); RDW Standard Deviation 54.4 fL (36.4-46.3); Red Blood Count 3.02 M/uL (4.20-5.40); White Blood Count 3.31 K/ul (4.8-10.8)
[2024-04-19 01:20] LABS: Partial Thromboplastin Time 27 Seconds (21-31)
[2024-04-19 01:31] LABS: BUN Creatinine Ratio 33.8 (10-20); Calcium 10.1 mg/dl (8.6-10.3); Creatinine Clr Calc Pharmacy 38.1 ml/min; Magnesium 2.3 mg/dl (1.7-2.4); Potassium 5.6 mmol/L (3.5-5.1)
[2024-04-19 02:17] LABS: Base Excess VBG -1.7 mEq/L; HCO3 VBG 27 mmol/L; Oxygen Saturation VBG 83.6 %; PCO2 VBG 59 mmHg (38-50); PO2 VBG 47 mmHg; pH VBG 7.26 (7.36-7.41)
[2024-04-19] MEDS: SODIUM CHLORIDE 0.9% 1,000 ML IV ONE (02:37)
[2024-04-19] MEDS: INSULIN HUMAN REGULAR PER UNIT 5 UNITS in SYRINGE 4.95 ML IV STA (02:38)
[2024-04-19] MEDS: DEXTROSE 50% 50 ML SYRINGE IV STA (02:39)
--- NOTE | 2024-04-19 02:55 | XRay Report ---
EXAM: XR chest 1V portable CLINICAL HISTORY: LOW 02. TECHNIQUE: X-ray image of the chest is obtained in AP projection. COMPARISON: 04/16/2024 CR. FINDINGS: Pulmonary Parenchyma: Suspected left lower zone opacity obliterating the left costophrenic angle. Linear adjacent opacities in the left lower zone, likely atelectasis. No definite consolidation or collapse in the right lung. No right-sided pleural effusion. Prominent central broncho vascular markings. Heart and Mediastinum: Apparent cardiomegaly with prominent hilar shadows. Bony Thorax: Diffuse decreased bone density with degenerative changes of the visualized skeleton. High-riding left humerus. The left distal humerus shows focal bony expansion with cortical thickening. Soft Tissues: Soft tissues overlying the chest wall are unremarkable. IMPRESSION: 1. Suspected left lower zone opacity obliterating the left costophrenic angle. This could be exaggerated due to projectional factors. However, clinical correlation is advised to assess for pneumonic infiltrate and pleural effusion. (New finding) 2. No other significant interval change. 3. Left distal humeral bony expansion with cortical thickening. Clinical correlation is advised to assess for an old fracture, however, other differentials like Paget's disease cannot be ruled out. Electronically signed by Tim Disla 04-19-2024 02:55 AM
[2024-04-19 03:13] LABS: Appearance Urine Clear (Clear); Bilirubin Urine Negative (Negative); Blood Urine Negative (Negative); Color Urine Yellow; Glucose Urine UA Negative (Negative); Ketones Urine Negative (Negative); Leukocyte Esterase Urine Negative (Negative); Nitrite Urine Negative (Negative); Protein Urine Negative (Negative); Specific Gravity Urine 1.015 (1.000-1.030); Urobilinogen Urine Negative (Negative)
[2024-04-19 03:43] LABS: Base Excess VBG -0.9 mEq/L; HCO3 VBG 29 mmol/L; Oxygen Saturation VBG 86.9 %; PCO2 VBG 70 mmHg (38-50); PO2 VBG 54 mmHg; pH VBG 7.22 (7.36-7.41)
[2024-04-19 06:43] LABS: Base Excess VBG -3.3 mEq/L; HCO3 VBG 26 mmol/L; Oxygen Saturation VBG < 60.0 %; PCO2 VBG 67 mmHg (38-50); PO2 VBG < 20 mmHg
[2024-04-19 09:11] LABS: HCO3 VBG 27 mmol/L; Oxygen Saturation VBG < 60.0 %; PCO2 VBG 58 mmHg (38-50); PO2 VBG 31 mmHg; pH VBG 7.27 (7.36-7.41)
--- NOTE | 2024-04-19 10:31 | Pulmonary Consultation ---
Date of Consultation April 19, 2024 Assessment & Plan (1) Respiratory acidosis: (2) COPD (chronic obstructive pulmonary disease): COPD type: emphysema Emphysema type: unspecified Qualified Code(s): J43.9 - Emphysema, unspecified (3) Respiratory depression: Plan IMPRESSION: 58-year-old female with a significant past medical history of COPD, tobacco abuse, narcotic abuse currently treated with methadone, and recent hospitalization with associated respiratory acidosis and respiratory depression. Pulmonary medicine consulted for the same. RECOMMENDATIONS: 1. Respiratory acidosis - Secondary to respiratory depression. The patient is on multiple medications resulting in respiratory depression. Additionally, it should be noted that the patient does have an apparent NGOZI which did seem to be somewhat contributory to increasing respiratory suppression with associated continuation of her maintenance methadone as well as other respiratory depressant medications as well. Consider holding these medications as well as dose reduction to minimal effective dose. In the interim, the patient should continue to require BiPAP with any sleep and/or naps. I am familiar with the patient from prior ICU visit. She is much more awake, alert, and oriented at this juncture. No recommendation for Narcan currently, however could be considered if she is with significant respiratory depression and without responsiveness. She typically does do well while she is awake, however when she sleeps she has poor ventilation secondary to her likely underlying severe COPD with associated respiratory suppression secondary to her multiple medications. Overall, the goal would be to remove patient from her significant doses of respiratory depressants including methadone. No need for pulmonary intervention at this time. Certainly, consideration for outpatient evaluation from a pulmonary perspective moving forward, but this can be done upon her returning home to [place] after discharge from inpatient psychiatric facility. 2. COPD - While we are without formal pulmonary function testing, given her exam findings consistent with barrel chest as well as substantial smoking history and need for intermittent use of rescue inhaler, this is presumptive diagnosis. Recommend outpatient follow-up with pulmonary medicine when she returns home to [place]. 3. Respiratory depression - She is on multiple medications that would result in this. Especially in a patient with NGOZI, consider dose reduction which should be goal moving forward in this patient with significant psychiatric issues. Thank you for allowing us to participate in the care of this pleasant patient. Supervising Physician Co-Signing Physician Notes Patient seen and examined. EMR reviewed. Discussed with critical care CATALINA and agree with assessment plan as noted. Patient has hypercarbic respiratory failure which is likely multifactorial. A significant point likely due to the patient using significant respiratory depressant medications. She apparently has had prior sleep studies performed and was told that she did not have need for nocturnal positive airway pressure however her elevated CO2 and ongoing use of respiratory suppressant medications would argue for potential need for BiPAP ST or AVAPS. The patient is open to the prospect of using AVAPS going forward. Will continue to use positive airway pressure when sleeping and try to get the patient set up in the outpatient setting. She will need to follow-up with a community relations director in [place] closer to home at follow-up. The above recommendations and plan were discussed with the patient. Questions were answered to the best my ability. History of Present Illness Reason for Consultation: resp failure Requesting Physician: Dr. Morataya Attending Physician: Silas Mae MD History of Present Illness The patient is a 58-year-old female with a significant past medical history of COPD, tobacco abuse disorder, opioid dependence currently treated with methadone, seizure disorder, major depressive disorder, insomnia, and recent psychiatric inpatient stay who presented to the hospital after sustaining an unwitnessed fall with associated transverse RIGHT humeral neck fracture. Patient had been recently admitted to this institution on 04/06/2024 concerns for methadone overdose. She has been a brief amount of time in the ICU where she received push dose Narcan followed by drip with improvement of symptoms. She was quickly downgraded with recommendations for intermittent BiPAP use as needed with sleep. She eventually was discharged from this institution, but returns today in the setting of fall with fracture. Apparently, the patient became more obtunded last night after receiving sedative medications. She was placed on her BiPAP and pulmonary medicine was consulted in the setting of "respiratory failure" with respiratory acidosis. Upon assessment in room 2171, the patient is awake, alert, and oriented. She is currently eating her breakfast. She provides me an entire history of her recent visit. Patient reports that she does have a significant smoking history, but requires no maintenance inhalers at this time. She has not smoked for the last few weeks while being inpatient. Currently, she offers no complaints of headaches, dizziness, lightheadedness, chest pain, palpitations, dizziness, lightheadedness, shortness of breath. Allergies Allergy/AdvReac Type Severity Reaction Status Date / Time No Known Allergies Allergy Verified 11/02/23 21:35 Home Medications Medication Instructions Recorded Confirmed Type gabapentin 600 mg tablet 600 mg PO TID 11/02/23 04/16/24 History lamotrigine 100 mg tablet 100 mg PO HS 11/02/23 04/16/24 History lamotrigine 25 mg tablet 75 mg PO QAM 11/02/23 04/16/24 History levetiracetam 500 mg tablet 500 mg PO BID 11/02/23 04/16/24 History lisinopril 40 mg tablet 40 mg PO DAILY 11/02/23 04/16/24 History amlodipine 5 mg tablet 5 mg PO DAILY 11/03/23 04/16/24 History calcitriol 0.25 mcg capsule 0.25 mcg PO QAM #30 caps 04/10/24 04/16/24 Rx atomoxetine 10 mg capsule 10 mg PO DAILY 04/16/24 04/16/24 History hydroxyzine HCl 25 mg tablet 100 mg PO HS PRN anxiety 04/16/24 04/16/24 History methadone 10 mg tablet 40 mg PO DAILY 04/16/24 04/16/24 History mirtazapine 15 mg tablet 7.5 mg PO HS 04/16/24 04/16/24 History multivitamin 1 tab PO DAILY 04/16/24 04/16/24 History nicotine 21 mg/24 hr daily 1 patch transdermal DAILY 04/16/24 04/16/24 History transdermal patch Patient History Medical History Hepatitis h/o hep B & C both untreated History of drug abuse Tobacco use Seizure disorder Hypertension Depression CVA (cerebral vascular accident) Hypertension Surgical History Hx of tubal ligation Family History Other Diabetes Heart disease Social History Smoking Status: Current every day smoker Tobacco Type: Cigarettes Cigarettes Per Day: 1 pk/day; Second Hand Exposure: No; Do You Dip or Chew Tobacco: No; Tobacco Cessation Education Requested by Patient: No Hx Alcohol Use: No Hx Substance Use: No Preferred Language: Omani Communication Ability: Effective Route Delivery Clerk Required: No Beliefs That Will Affect Care: None Current Living Situation: Rehab Other Information That Helps Us Care for You: No Feels Safe at Home: Yes Safety Concerns: Feels Safe At This Time Assistive Devices: Other Assistive Devices Comment: sling on right arm Review of Systems Review of Systems: A complete 10 point review of systems was reviewed with the patient with pertinent positives and negatives as per history of present illness. All else were negative. Physical Exam Physical Exam: VITAL SIGNS Vital signs and nursing notes were reviewed. GENERAL 58-year-old female appearing her stated age who is in no acute distress. Communicates well with provider and answers questions appropriately. SKIN Without rashes or lesions. NOSE Midline and without cyanosis. No epistaxis or purulent drainage noted. MOUTH/OROPHARYNX Without perioral cyanosis. NECK Neck with FROM. LUNGS Chest wall evaluation demonstrates increased chest wall A:P diameter. Auscultation reveals delayed air entry without wheezes. CARDIAC RRR with S1/S2. No murmur, rubs, or gallops appreciated. ABDOMEN Abdominal inspection demonstrates flat. BS normoactive all four quadrants. No tenderness, palpable masses, or ascites noted. EXTREMITIES Nail clubbing not present. No peripheral cyanosis. No pretibial edema present. +3/5 radial palpated throughout. PSYCH A&Ox3 and cooperates fully with examiner. Pt is very pleasant and interacts well with examiner. Results & Data Results & Data Vital Signs (Past 12 Hours) Vital Signs Temp Pulse Pulse Resp BP Pulse Ox O2 Del Method 04/19/24 08:10 69 04/19/24 08:10 BiPAP 04/19/24 07:21 75 24 100 04/19/24 07:15 36.4 C L 68 17 129/90 97 BiPAP 04/19/24 03:31 77 20 94 04/19/24 02:50 36.7 C 79 20 101/66 93 BiPAP 04/19/24 00:27 73 12 96 04/18/24 23:32 36.7 C 77 19 118/75 91 Nasal Cannula 04/18/24 22:51 80 04/18/24 22:42 Nasal Cannula O2 Flow Rate FiO2 04/19/24 08:10 04/19/24 08:10 04/19/24 07:21 30 04/19/24 07:15 04/19/24 03:31 30 04/19/24 02:50 04/19/24 00:27 30 04/18/24 23:32 04/18/24 22:51 04/18/24 22:42 1 PG Care Time/CCT Total # of Minutes Spent Total Time Spent with Patient: Total time spent is greater than 50% in coordination of care (as documented) at patient's floor/unit and/or counseling patient: Coding Level of Care Code 92987 IN/OBS CONSULT LVL 3,45M Diagnoses Respiratory acidosis E87.29 Pulmonary emphysema, unspecified emphysema type J43.9 COPD type: emphysema Emphysema type: unspecified Respiratory depression R06.89
--- NOTE | 2024-04-19 11:59 | Hospitalist Progress Note ---
Date of Service April 19, 2024 Assessment & Plan (1) Shoulder fracture, right: Plan: Continue with pain control and immobilization with sling. (2) Unwitnessed fall: Plan: Based on PT and OT evaluation, patient requires to go to inpatient rehab. Case management is on board. (3) COPD (chronic obstructive pulmonary disease): Plan: Clinically stable, continue to monitor and treat as needed. (4) Seizure disorder: Plan: Clinically stable, no report of any seizure in the hospital, continue with Lamictal, Keppra. (5) MDD (major depressive disorder), recurrent episode: Plan: Patient is on atomoxetine, gabapentin was put on hold for now, we may need to restart it but at lower dose. (6) Hypoventilation, central alveolar: Plan: The reason for her chronic hypoventilation leading to chronic acidosis is most likely central, she would need repeat sleep study as outpatient with hope of upgrading to BiPAP. Plan Medically stable, awaiting inpatient rehab placement. Admission and Anticipated Discharge Date Admission Date: April 16, 2024 Subjective Patient is a 58-year-old female who was admitted to the hospital after a unwitnessed fall resulted in a right humeral fracture, patient has underlying anxiety disorder, major depression, COPD and history of chronic back pain for which she is on methadone. Patient was seen by orthopedics and recommended immobilization with sling which patient was put on. Patient was seen and examined, there was a report of last night altered mental status which could be attributed to medications that she has been on. I reviewed medications, decided to hold gabapentin for now and reduce methadone to 40 mg daily. I spoke with case management, still there is no bed at [facility]. Reviewing her blood work including blood gases showed that she is chronically acidotic due to hypercapnia which I think most likely as result of underlying COPD, she does have underlying sleep apnea on CPAP at 11 cm water which needs to be continued. She has occasionally, she tells me that every time she gets admitted to the hospital, she is being told that she needs to be on oxygen but as outpatient she is taken off oxygen by her PCP. At this point I think the patient needs to have her sleep study repeated with the hope that potentially she can be added EPAP. Physical Exam Physical Exam: VITALS: Reviewed. GEN: Healthy appearing, well-developed, NAD. CV: RRR, no m/r/g. LUNGS: CTAB, no w/r/c. MSK: Right upper extremity in sling Results & Data Results & Data Vital Signs (Past 12 Hours) Vital Signs Temp Pulse Pulse Resp BP Pulse Ox O2 Del Method 04/19/24 10:44 36.7 C 82 18 147/82 H 94 Nasal Cannula 04/19/24 08:10 69 04/19/24 08:10 BiPAP 04/19/24 07:21 75 24 100 04/19/24 07:15 36.4 C L 68 17 129/90 97 BiPAP 04/19/24 03:31 77 20 94 04/19/24 02:50 36.7 C 79 20 101/66 93 BiPAP 04/19/24 00:27 73 12 96 O2 Flow Rate FiO2 04/19/24 10:44 2 04/19/24 08:10 04/19/24 08:10 04/19/24 07:21 30 04/19/24 07:15 04/19/24 03:31 30 04/19/24 02:50 04/19/24 00:27 30 Laboratory Results Laboratory Results - last 24 hr 04/19/24 04/19/24 04/19/24 00:32 01:58 03:02 WBC 3.31 L RBC 3.02 L Hgb 9.5 L Hct 30.8 L MCV 102.0 H MCH 31.5 MCHC 30.8 L RDW Std Deviation 54.4 H RDW Coeff of Sol 14.5 Plt Count 89 L MPV 10.7 Immature Gran % (Auto) 0.3 Neut % (Auto) 51.0 Lymph % (Auto) 23.6 Roberts % (Auto) 21.5 Eos % (Auto) 3.3 Baso % (Auto) 0.3 Neut # (Auto) 1.69 Lymph # (Auto) 0.78 L Roberts # (Auto) 0.71 H Eos # (Auto) 0.11 Baso # (Auto) 0.01 Immature Gran # (Auto) 0.01 APTT 27 PTT Ratio 1.0 VBG pH 7.24 L 7.26 L VBG pCO2 63 H 59 H VBG pO2 62 47 VBG HCO3 27 27 VBG O2 Saturation 93.6 83.6 VBG Base Excess -1.7 -1.7 Sodium 138 Potassium 5.6 H Chloride 110 H Carbon Dioxide 27 Anion Gap 1 L BUN 45 H Creatinine 1.33 H Est Cr Clr Drug Dosing 38.1 eGFR 46.38 BUN/Creatinine Ratio 33.8 H Glucose 105 H POC Glucose 153 H Calcium 10.1 Magnesium 2.3 Ammonia 40.0 Urine Color Urine Appearance Urine pH Ur Specific Dresher Urine Protein Urine Glucose (UA) Urine Ketones Urine Blood Urine Nitrite Urine Bilirubin Urine Urobilinogen Ur Leukocyte Esterase 04/19/24 04/19/24 04/19/24 03:07 03:27 06:37 WBC RBC Hgb Hct MCV MCH MCHC RDW Std Deviation RDW Coeff of Sol Plt Count MPV Immature Gran % (Auto) Neut % (Auto) Lymph % (Auto) Roberts % (Auto) Eos % (Auto) Baso % (Auto) Neut # (Auto) Lymph # (Auto) Roberts # (Auto) Eos # (Auto) Baso # (Auto) Immature Gran # (Auto) APTT PTT Ratio VBG pH 7.22 L 7.20 L VBG pCO2 70 H 67 H VBG pO2 54 < 20 VBG HCO3 29 26 VBG O2 Saturation 86.9 < 60.0 VBG Base Excess -0.9 -3.3 Sodium Potassium 5.1 Chloride Carbon Dioxide Anion Gap BUN Creatinine Est Cr Clr Drug Dosing eGFR BUN/Creatinine Ratio Glucose POC Glucose Calcium Magnesium Ammonia Urine Color Yellow Urine Appearance Clear Urine pH 5.0 Ur Specific Dresher 1.015 Urine Protein Negative Urine Glucose (UA) Negative Urine Ketones Negative Urine Blood Negative Urine Nitrite Negative Urine Bilirubin Negative Urine Urobilinogen Negative Ur Leukocyte Esterase Negative 04/19/24 08:58 WBC RBC Hgb Hct MCV MCH MCHC RDW Std Deviation RDW Coeff of Sol Plt Count MPV Immature Gran % (Auto) Neut % (Auto) Lymph % (Auto) Roberts % (Auto) Eos % (Auto) Baso % (Auto) Neut # (Auto) Lymph # (Auto) Roberts # (Auto) Eos # (Auto) Baso # (Auto) Immature Gran # (Auto) APTT PTT Ratio VBG pH 7.27 L VBG pCO2 58 H VBG pO2 31 VBG HCO3 27 VBG O2 Saturation < 60.0 VBG Base Excess -1.0 Sodium Potassium Chloride Carbon Dioxide Anion Gap BUN Creatinine Est Cr Clr Drug Dosing eGFR BUN/Creatinine Ratio Glucose POC Glucose Calcium Magnesium Ammonia Urine Color Urine Appearance Urine pH Ur Specific Dresher Urine Protein Urine Glucose (UA) Urine Ketones Urine Blood Urine Nitrite Urine Bilirubin Urine Urobilinogen Ur Leukocyte Esterase Diagnostic Findings Chest X-Ray 04/19/24 00:05 EXAM: XR chest 1V portable CLINICAL HISTORY: LOW 02. TECHNIQUE: X-ray image of the chest is obtained in AP projection. COMPARISON: 04/16/2024 CR. FINDINGS: Pulmonary Parenchyma: Suspected left lower zone opacity obliterating the left costophrenic angle. Linear adjacent opacities in the left lower zone, likely atelectasis. No definite consolidation or collapse in the right lung. No right-sided pleural effusion. Prominent central broncho vascular markings. Heart and Mediastinum: Apparent cardiomegaly with prominent hilar shadows. Bony Thorax: Diffuse decreased bone density with degenerative changes of the visualized skeleton. High-riding left humerus. The left distal humerus shows focal bony expansion with cortical thickening. Soft Tissues: Soft tissues overlying the chest wall are unremarkable. IMPRESSION: 1. Suspected left lower zone opacity obliterating the left costophrenic angle. This could be exaggerated due to projectional factors. However, clinical correlation is advised to assess for pneumonic infiltrate and pleural effusion. (New finding) 2. No other significant interval change. 3. Left distal humeral bony expansion with cortical thickening. Clinical correlation is advised to assess for an old fracture, however, other differentials like Paget's disease cannot be ruled out. Electronically signed by Tim Disla 04-19-2024 02:55 AM Medications Administered Current Inpatient Medications Acetaminophen (Acetaminophen 500 Mg Tab) 1,000 mg PO Q8H CASIE Stop: 05/16/24 14:29 Last Admin: 04/19/24 06:13 Dose: 1,000 mg Atomoxetine HCl (Atomoxetine Hcl 10 Mg Capsule) 10 mg PO DAILY CASIE Stop: 05/17/24 08:59 Last Admin: 04/19/24 09:59 Dose: 10 mg Gabapentin (Gabapentin 600 Mg Tab) 600 mg PO TID CASIE Stop: 05/16/24 20:59 Last Admin: 04/19/24 10:16 Dose: Not Given Hydroxyzine HCl (Hydroxyzine Hcl 25 Mg Tab) 25 mg PO HS PRN PRN Reason: anxiety Stop: 05/16/24 15:07 Sodium Chloride (Nss) 1,000 mls @ 75 mls/hr IV .[id number] ONE Stop: 04/19/24 15:25 Last Admin: 04/19/24 02:37 Dose: 75 mls/hr Lamotrigine (Lamotrigine 25 Mg Tab) 75 mg PO QAM [facility]; Protocol Stop: 05/17/24 08:59 Last Admin: 04/19/24 10:00 Dose: 75 mg Lamotrigine (Lamotrigine 100 Mg Tab) 100 mg PO HS [facility]; Protocol Stop: 05/16/24 20:59 Last Admin: 04/18/24 21:09 Dose: 100 mg Levetiracetam (Levetiracetam 500 Mg Tab) 500 mg PO BID [facility] Stop: 05/16/24 20:59 Last Admin: 04/19/24 10:00 Dose: 500 mg Methadone HCl (Methadone Hcl 10 Mg Tab) 40 mg PO DAILY [facility] Stop: 05/01/24 08:59 Last Admin: 04/19/24 10:14 Dose: 40 mg Mirtazapine (Mirtazapine Tab 15 Mg Tab) 7.5 mg PO [facility] Stop: 05/16/24 20:59 Last Admin: 04/18/24 21:07 Dose: 7.5 mg Miscellaneous (Remove Nicoderm Patch) 1 each N/A DAILY@0859 [facility] Stop: 05/17/24 08:58 Last Admin: 04/19/24 09:59 Dose: 1 each Multivitamins (Multivitamin Tab) 1 tab PO DAILY [facility] Stop: 05/17/24 08:59 Last Admin: 04/19/24 09:59 Dose: 1 tab Nicotine (Nicotine 21 Mg/24 Hr Tdsy) 1 patch TD DAILY [facility] Stop: 05/17/24 08:59 Last Admin: 04/19/24 09:59 Dose: 1 patch Ondansetron HCl (Ondansetron Inj 2 Mg/Ml 2 Ml Vial) 4 mg IV Q6H PRN PRN Reason: Nausea Stop: 05/16/24 15:07 Polyethylene Glycol (Polyethylene (Miralax) 17 Gm Pack) 17 gm PO DAILY PRN PRN Reason: Constipation Stop: 05/16/24 15:07 (1) Shoulder fracture, right Encounter type: initial encounter Fracture type: closed Qualified Code(s): S42.91XA - Fracture of right shoulder girdle, part unspecified, initial encounter for closed fracture (3) COPD (chronic obstructive pulmonary disease) COPD type: emphysema Emphysema type: unspecified Qualified Code(s): J43.9 - Emphysema, unspecified (5) MDD (major depressive disorder), recurrent episode Major depression episode severity: mild Qualified Code(s): F33.0 - Major depressive disorder, recurrent, mild
[2024-04-19] MEDS: hydrOXYzine HCl 25 MG TAB PO PRN (20:08)
[2024-04-20] MEDS: KETOROLAC TROMETHAMINE 15 MG/ML VIAL IV ONE (01:26)
[2024-04-20] MEDS: GABAPENTIN 100 MG CAP PO SCH (11:03)
--- NOTE | 2024-04-20 11:05 | Pulmonology Progress Note ---
Date of Service April 20, 2024 Assessment & Plan (1) Respiratory acidosis: (2) COPD (chronic obstructive pulmonary disease): COPD type: emphysema Emphysema type: unspecified Qualified Code(s): J43.9 - Emphysema, unspecified (3) Respiratory depression: Plan IMPRESSION: 58-year-old female with a significant past medical history of COPD, tobacco abuse, narcotic abuse currently treated with methadone, and recent hospitalization with associated respiratory acidosis and respiratory depression. Pulmonary medicine consulted for the same. RECOMMENDATIONS: 1. Respiratory acidosis - Secondary to respiratory depression. The patient is on multiple medications resulting in respiratory depression. Additionally, it should be noted that the patient does have an apparent NGOZI which did seem to be somewhat contributory to increasing respiratory suppression with associated continuation of her maintenance methadone as well as other respiratory depressant medications as well. Consider holding these medications as well as dose reduction to minimal effective dose. In the interim, the patient should continue to require BiPAP with any sleep and/or naps. As noted in attending's note yesterday, consideration for BiPAP or AVAPS therapy moving forward. 2. COPD - While we are without formal pulmonary function testing, given her exam findings consistent with barrel chest as well as substantial smoking history and need for intermittent use of rescue inhaler, this is presumptive diagnosis. Recommend outpatient follow-up with pulmonary medicine when she ret urns home to [place]. 3. Respiratory depression - She is on multiple medications that would result in this. Especially in a patient with NGOZI, consider dose reduction which should be goal moving forward in this patient with significant psychiatric issues. Thank you for allowing us to participate in the care of this pleasant patient. Admission and Anticipated Discharge Date Admission Date: April 16, 2024 Supervising Physician Co-Signing Physician Notes Patient seen and examined. EMR reviewed. Discussed with CATALINA and agree with AP as noted. Continues to improve. Chronic hypercarbic resp failure due to medications and poss sleep disordered breathing. No change in recommendations. Outpatient follow up with pulmonary in [place] for PFTs and sleep study if unable to arrange AVAPS here. Pulmonary will sign off. Call if questions. Subjective Patient seen and evaluated at bedside. She reports that she slept with her BiPAP at night and tolerated it well. She reports being much more alert today. She is weak and reports discomfort from the LEFT upper arm fracture. Review of Systems Review of Systems: A complete 10 point review of systems was reviewed with the patient with pertinent positives and negatives as per history of present illness. All else were negative. Physical Exam Physical Exam: VITAL SIGNS Vital signs and nursing notes were reviewed. GENERAL 58-year-old female appearing her stated age who is in no acute distress. Communicates well with provider and answers questions appropriately. SKIN Without rashes or lesions. NOSE Midline and without cyanosis. No epistaxis or purulent drainage noted. MOUTH/OROPHARYNX Without perioral cyanosis. NECK Neck with FROM. LUNGS Chest wall evaluation demonstrates increased chest wall A:P diameter. Auscultation reveals delayed air entry without wheezes. CARDIAC RRR with S1/S2. No murmur, rubs, or gallops appreciated. ABDOMEN Abdominal inspection demonstrates flat. BS normoactive all four quadrants. No tenderness, palpable masses, or ascites noted. EXTREMITIES Nail clubbing not present. No peripheral cyanosis. No pretibial edema present. +3/5 radial palpated throughout. PSYCH A&Ox3 and cooperates fully with examiner. Pt is very pleasant and interacts well with examiner. Results & Data Results & Data Vital Signs (Past 12 Hours) Vital Signs Temp Pulse Pulse Resp BP Pulse Ox O2 Del Method 04/20/24 10:54 36.8 C 78 18 141/83 H 95 Nasal Cannula 04/20/24 07:38 36.8 C 78 18 172/93 H 96 Nasal Cannula 04/20/24 07:00 74 04/20/24 03:19 36.7 C 84 18 143/79 H 90 Nasal Cannula 04/20/24 02:21 88 24 96 04/20/24 01:00 83 04/20/24 00:04 Nasal Cannula, BiPAP 04/19/24 23:14 36.4 C L 83 20 146/84 H 95 Nasal Cannula O2 Flow Rate FiO2 04/20/24 10:54 3 04/20/24 07:38 3 04/20/24 07:00 04/20/24 03:19 3 04/20/24 02:21 30 04/20/24 01:00 04/20/24 00:04 2 04/19/24 23:14 3 PG Care Time/CCT Total # of Minutes Spent Total Time Spent with Patient: Total time spent is greater than 50% in coordination of care (as documented) at patient's floor/unit and/or counseling patient: Coding Level of Care Code 26759 SUB INP/OBS CARE 2/35MIN Diagnoses Respiratory acidosis E87.29 Pulmonary emphysema, unspecified emphysema type J43.9 COPD type: emphysema Emphysema type: unspecified Respiratory depression R06.89
--- NOTE | 2024-04-20 11:45 | Hospitalist Progress Note ---
Date of Service April 20, 2024 Assessment & Plan (1) Shoulder fracture, right: Plan: Continue with pain control and immobilization with sling. Overall her pain is controlled. (2) Unwitnessed fall: Plan: Awaiting insurance authorization for acute rehab placement. (3) COPD (chronic obstructive pulmonary disease): Plan: Clinically stable, continue to monitor and treat as needed. (4) Seizure disorder: Plan: Clinically stable, no report of any seizure in the hospital, continue with Lamictal Keppra. (5) MDD (major depressive disorder), recurrent episode: Plan: Patient is on atomoxetine, atient was restarted on gabapentin 200 mg twice daily. (6) Hypoventilation, central alveolar: Plan: The reason for her chronic hypoventilation leading to chronic acidosis is most likely central, she would need repeat sleep study as outpatient with hope of upgrading to BiPAP. Plan Medically stable, awaiting inpatient rehab placement. Admission and Anticipated Discharge Date Admission Date: April 16, 2024 Subjective Patient is a 58-year-old female who was admitted to the hospital after a unwitnessed fall resulted in a right humeral fracture, patient has underlying anxiety disorder, major depression, COPD and history of chronic back pain for which she is on methadone. Patient was seen by orthopedics and recommended immobilization with sling which patient was put on. Patient was seen and examined, there was a report of last night altered mental status which could be attributed to medications that she has been on. I reviewed medications, decided to hold gabapentin for now and reduce methadone to 40 mg daily. I spoke with case management, still there is no bed at [facility]. Patient does have chronic respiratory acidosis due to hypoventilation. Her medications were adjusted and she was temporarily taken off of gabapentin. Patient was seen and examined today, she is doing better, I restarted gabapentin at 200 mg twice daily for her. Recent case management, her insurance authorization has not been received yet. Physical Exam Physical Exam: VITALS: Reviewed. GEN: Healthy appearing, well-developed, NAD. CV: RRR, no m/r/g. LUNGS: Clear bilaterally, no wheeze or crackles. MSK: Right upper extremity in sling Results & Data Results & Data Vital Signs (Past 12 Hours) Vital Signs Temp Pulse Pulse Resp BP Pulse Ox O2 Del Method 04/20/24 10:54 36.8 C 78 18 141/83 H 95 Nasal Cannula 04/20/24 07:45 Room Air 04/20/24 07:38 36.8 C 78 18 172/93 H 96 Nasal Cannula 04/20/24 07:00 74 04/20/24 03:19 36.7 C 84 18 143/79 H 90 Nasal Cannula 04/20/24 02:21 88 24 96 04/20/24 01:00 83 04/20/24 00:04 Nasal Cannula, BiPAP O2 Flow Rate FiO2 04/20/24 10:54 3 04/20/24 07:45 04/20/24 07:38 3 04/20/24 07:00 04/20/24 03:19 3 04/20/24 02:21 30 04/20/24 01:00 04/20/24 00:04 2 Medications Administered Current Inpatient Medications Acetaminophen (Acetaminophen 500 Mg Tab) 1,000 mg PO Q8H CASIE Stop: 05/16/24 14:29 Last Admin: 04/20/24 06:04 Dose: 1,000 mg Atomoxetine HCl (Atomoxetine Hcl 10 Mg Capsule) 10 mg PO DAILY CASIE Stop: 05/17/24 08:59 Last Admin: 04/20/24 08:44 Dose: 10 mg Gabapentin (Gabapentin 100 Mg Cap) 200 mg PO BID CASIE Stop: 05/20/24 09:29 Last Admin: 04/20/24 11:03 Dose: 200 mg Hydroxyzine HCl (Hydroxyzine Hcl 25 Mg Tab) 25 mg PO HS PRN PRN Reason: anxiety Stop: 05/16/24 15:07 Last Admin: 04/19/24 20:08 Dose: 25 mg Lamotrigine (Lamotrigine 25 Mg Tab) 75 mg PO QAM [facility]; Protocol Stop: 05/17/24 08:59 Last Admin: 04/20/24 08:44 Dose: 75 mg Lamotrigine (Lamotrigine 100 Mg Tab) 100 mg PO HS [facility]; Protocol Stop: 05/16/24 20:59 Last Admin: 04/19/24 20:08 Dose: 100 mg Levetiracetam (Levetiracetam 500 Mg Tab) 500 mg PO BID CASIE Stop: 05/16/24 20:59 Last Admin: 04/20/24 08:44 Dose: 500 mg Methadone HCl (Methadone Hcl 10 Mg Tab) 40 mg PO DAILY CASIE Stop: 05/01/24 08:59 Last Admin: 04/20/24 08:52 Dose: 40 mg Mirtazapine (Mirtazapine Tab 15 Mg Tab) 7.5 mg PO HS [facility] Stop: 05/16/24 20:59 Last Admin: 04/19/24 20:07 Dose: 7.5 mg Miscellaneous (Remove Nicoderm Patch) 1 each N/A DAILY@0859 [facility] Stop: 05/17/24 08:58 Last Admin: 04/20/24 08:41 Dose: Not Given Multivitamins (Multivitamin Tab) 1 tab PO DAILY CASIE Stop: 05/17/24 08:59 Last Admin: 04/20/24 08:44 Dose: 1 tab Nicotine (Nicotine 21 Mg/24 Hr Tdsy) 1 patch TD DAILY [facility] Stop: 05/17/24 08:59 Last Admin: 04/20/24 08:44 Dose: 1 patch Ondansetron HCl (Ondansetron Inj 2 Mg/Ml 2 Ml Vial) 4 mg IV Q6H PRN PRN Reason: Nausea Stop: 05/16/24 15:07 Polyethylene Glycol (Polyethylene (Miralax) 17 Gm Pack) 17 gm PO DAILY PRN PRN Reason: Constipation Stop: 05/16/24 15:07 (1) Shoulder fracture, right Encounter type: initial encounter Fracture type: closed Qualified Code(s): S42.91XA - Fracture of right shoulder girdle, part unspecified, initial encounter for closed fracture (3) COPD (chronic obstructive pulmonary disease) COPD type: emphysema Emphysema type: unspecified Qualified Code(s): J43.9 - Emphysema, unspecified (5) MDD (major depressive disorder), recurrent episode Major depression episode severity: mild Qualified Code(s): F33.0 - Major depressive disorder, recurrent, mild
[2024-04-20 18:08] LABS: Lamictal(Lamotrigine) 4.8 mcg/mL (2.5-15.0); Levetiracetam Keppra 36.6 mcg/mL (6.0-46.0)
[2024-04-20] MEDS: oxyCODONE HCL IR 5 MG TAB (IMMEDIATE RELEASE) PO PRN (20:40)
[2024-04-21 08:36] VITALS: TEMP 98.4
[2024-04-21] MEDS: METHADONE HCL 10 MG TAB PO ONE (10:40)
[2024-04-21 11:40] VITALS: BP 173/95; RESP 18; O2SAT 91
[2024-04-21 12:10] VITALS: PULSE 88
--- NOTE | 2024-04-21 12:11 | Discharge Summary ---
Discharge Summary Date of Service April 21, 2024 Principal Dx & Hospital Course #1 = Principal Diagnosis (1) Shoulder fracture, right: (2) Unwitnessed fall: (3) COPD (chronic obstructive pulmonary disease): (4) Seizure disorder: (5) MDD (major depressive disorder), recurrent episode: (6) Hypoventilation, central alveolar: (7) Chronic hypoxemic respiratory failure: Notes For Next Care Provider Medication Changes From Visit Increasing the dose of methadone from 40 mg daily to 50 mg daily. Lowering gabapentin from initial 600 mg 3 times daily to 300 mg twice daily Admission HPI Per Admitting Provider Patient is a 58-year-old female who was admitted to the hospital after a unwitnessed fall resulted in a right humeral fracture, patient has underlying anxiety disorder, major depression, COPD and history of chronic back pain for which she is on methadone. Patient was seen by orthopedics and recommended immobilization with sling which patient was put on. Patient remained stable and persistently on a daily basis we tried to adjust to her treatment, in regard to her pain control. She does have some prior history of substance use however in the light of fracture of right humeral bone, it was difficult to deny her of any adjustment of analgesia. At some point I noticed that patient was obtunded and I took her off regular scheduled gabapentin of 600 mg 3 times daily, she gradually improved after 24 hours and I restarted her on 200 mg twice daily and as of today, 04/21/2024, I have increased that to 30 mg twice daily. This dose may be adjusted gradually based on her tolerance and neurological status. We also noticed that patient has been dependent on oxygen requiring 1 L of oxygen to remain above 90% oxygen saturation, I think this is chronic as a result of her underlying COPD. She needs to stay on oxygen between 1 to 2 L at rest. Patient was seen during this visit by PT and OT and acute rehab was suggested, as I understand she does have a bed offer today and insurance authorization was received and so patient will be sent to inpatient rehab. I recommend her dose of methadone to be increased to 50 mg daily from initial dose of 40 and that potentially can reduce the need for as needed opioids. Updated Medication List Medication Instructions Recorded Confirmed Type lamotrigine 100 mg tablet 100 mg PO HS 11/02/23 04/16/24 History lamotrigine 25 mg tablet 75 mg PO QAM 11/02/23 04/16/24 History levetiracetam 500 mg tablet 500 mg PO BID 11/02/23 04/16/24 History lisinopril 40 mg tablet 40 mg PO DAILY 11/02/23 04/16/24 History amlodipine 5 mg tablet 5 mg PO DAILY 11/03/23 04/16/24 History calcitriol 0.25 mcg capsule 0.25 mcg PO QAM #30 caps 04/10/24 04/16/24 Rx atomoxetine 10 mg capsule 10 mg PO DAILY 04/16/24 04/16/24 History hydroxyzine HCl 25 mg tablet 100 mg PO HS PRN anxiety 04/16/24 04/16/24 History mirtazapine 15 mg tablet 7.5 mg PO HS 04/16/24 04/16/24 History multivitamin 1 tab PO DAILY 04/16/24 04/16/24 History nicotine 21 mg/24 hr daily 1 patch transdermal DAILY 04/16/24 04/16/24 History transdermal patch gabapentin 300 mg capsule 300 mg PO BID 10 days #20 caps 04/21/24 Rx methadone 10 mg tablet 50 mg (5 x 10 mg) PO DAILY 10 days 04/21/24 04/16/24 Rx #50 tabs Hospital Stay Data Consultations 04/16/24 13:03 ED Decision to Admit Stat 04/16/24 14:09 Consult Orthopedic Surgery Routine 04/17/24 12:36 Consult Behavioral Health Liaison Routine 04/19/24 07:04 Consult Pulmonology Routine Diagnostic Imagining Performed 04/16/24 11:52 CT head/brain wo con Stat Pending Results Patient Have Any Pending Studies at Discharge: No Discharge Instructions Given to Patient (Per Discharging Provider) Orthopedic instructions: Recommend use of the sling whenever upright or out of bed or chair. Should be nonweightbearing to the right upper extremity. Range of motion as tolerated to the elbow wrist and digits. Should have repeat x-rays in approximately 2 weeks as an outpatient. She can carefully come out of the sling for hygiene and ADLs such as getting dressed. May loosen the sling and position with pillows as needed for comfort while sleeping. Total Time Total Time Spent Total Time Spent (In Minutes): More than 35 minutes
[2024-04-21] MEDS ORDERED: GABAPENTIN 300 MG CAP PO SCH (21:00)
[2024-04-22] MEDS ORDERED: METHADONE HCL 10 MG TAB PO SCH (09:00)
--- NOTE | 2024-04-24 05:29 | Coding Query ---
PRESSURE ULCER DOCUMENTATION To promote full compliance with coding requirements relating to patient care, physician participation is requested in all cases of certified procedural coder uncertainty. Please assist us with the question(s) below: Please specify the known or suspected type by placing an "X" within the parenthesis (x). A pressure ulcer of the SACRUM -Nursing assessments revealed a pressure ulcer to distal sacrum. Wound care was consulted. Please check below- thank you ! BUSHRA Caldwell [facility] If possible, please check the box that provides the specific stage of the pressure ulcer ( ) Stage I ( ) Stage II ( ) Stage III ( ) Stage IV (x ) Unstageable Was the pressure ulcer present on admission? Please check the appropriate box for the pressure ulcer: (x ) Present on admission ( ) Not present on admission ( ) Unable to be clinically determined MTDD
== END 2024-04-21 14:45 | DRG 562 ==
LOC: ED 11:26 → SUATTDRO 13:40 → 2S 13:40